=== PATIENT | female | born 1960 | race Caucasian/White ===

== ENCOUNTER → 2017-01-27 | Outpatient (CLI) | payer BC ==
--- NOTE | 2017-01-28 07:41 | MM ---
Reason for exam: screening (asymptomatic). Baseline mammogram. History: Patient is postmenopausal and is nulliparous. Physical Findings: Nurse did not find any significant physical abnormalities on exam. MG Screening Mammo w CAD Bilateral CC and MLO view(s) were taken. The breast tissue is heterogeneously dense. This may lower the sensitivity of mammography. Finding: There are typically benign round, diffuse/scattered calcifications in both breasts. There is no discrete abnormality. These results were verbally communicated with the patient and result sheet given to the patient on 01/27/17. ASSESSMENT: Benign, BI-RAD 2 RECOMMENDATION: Routine screening mammogram of both breasts in 1 year.
== END | disposition home or self-care (01) ==
LOC: RADMAMWWP 14:35
PROVIDERS: ATTEND Family Medicine
DX: Z12.31 Encounter for screening mammogram for malignant neoplasm of breast (principal); R92.1 Mammographic calcification found on diagnostic imaging of breast

== ENCOUNTER 2023-05-11 12:04 | Inpatient (IN) | payer BC ==
[2023-05-11] MEDS ORDERED: SODIUM CHLORIDE 0.9% 1,000 ML IV STA (12:48)
--- NOTE | 2023-05-11 12:58 | ED ---
General Adult HPI - General Chief complaint: Abdominal Pain Stated complaint: abd pain Time Seen by Provider: 05/11/23 12:31 Source: patient Mode of arrival: ambulatory - History of Present Illness Initial comments: Dictation was produced using [employer] dictation software. please excuse any grammatical, word or spelling errors. Chief Complaint: 62-year-old female with 1 week of abdominal pain History of Present Illness: Patient is 62-year-old female presents emergency Department with approximately one week of abdominal pain. Patient has no history of appendectomy. She does have a history of high blood pressure. Has not eaten in 5 or 6 days. She decided come to the emergency room because her symptoms are not improving. Denies any diarrhea. She has had some bouts of nausea and vomiting. Patient denies any history of abdominal surgery. Denies any fevers. Denies any vaginal bleeding. The ROS documented in this emergency department record has been reviewed and confirmed by me. Those systems with pertinent positive or negative responses have been documented in the HPI. All other systems are other negative and/or noncontributory. - Related Data Allergies Allergy/AdvReac Type Severity Reaction Status Date / Time No Known Allergies Allergy Verified 05/11/23 12:09 Review of Systems ROS Statement: Those systems with pertinent positive or pertinent negative responses have been documented in the HPI. ROS Other: All systems not noted in ROS Statement are negative. Past Medical History Past Medical History: Hypertension Additional Past Medical History / Comment(s): back pain History of Any Multi-Drug Resistant Organisms: None Reported Past Surgical History: Orthopedic Surgery Smoking Status: Current every day smoker Past Alcohol Use History: None Reported Past Drug Use History: None Reported General Exam - General Exam Comments Initial Comments: PHYSICAL EXAM: General Impression: Alert and oriented x3, not in acute distress HEENT: Normocephalic atraumatic, extra-ocular movements intact, pupils equal and reactive to light bilaterally, mucous membranes moist. Cardiovascular: Heart regular rate and rhythm Chest: Able to complete full sentences, no retractions, no tachypnea Abdomen: Exquisite tenderness to right lower quadrant palpation, no rebound, no pain in the right lower quadrant with palpation to the left abdomen Musculoskeletal: Pulses present and equal in all extremities, no peripheral edema Motor: no focal deficits noted Neurological: CN II-XII grossly intact, no focal motor or sensory deficits noted Skin: Intact with no visualized rashes Psych: Normal affect and mood Course Vital Signs 05/11/23 12:05 Temperature 98.2 F Pulse Rate 98 Respiratory 18 Rate Blood Pressure 95/53 O2 Sat by Pulse 100 Oximetry EKG Findings - EKG Comments: EKG Findings:: My EKG interpretation: Ventricular rate 75, sinus rhythm, RI interval 145, QRS 94, QTC 392. No RI prolongation, no QTC prolongation, slight T-wave inversions in some precordial leads No old EKG for comparison Overall, this EKG is unremarkable Procedures - Sepsis Sepsis Focused Exam #1 Time Sepsis Criteria Met: 16:37 Sepsis Focused Exam Date: 05/11/23 Sepsis Focused Exam Time: :37 Sepsis Focused Exam Complete: Yes Vital Signs & RN Notes Reviewed: Yes Capillary Refill: < 2 Seconds: Fingers, Toes Peripheral Pulses: Normal: Radial (R), Radial (L), Posterior Tibialis (R), Pos terior Tibialis (L), Dorsalis Pedis (R), Dorsalis Pedis (L) Skin Color: Normal for Patient Respiratory Exam: normal lung sounds Cardiovascular Exam: regular rate Medical Decision Making - Medical Decision Making Was pt. sent in by a medical professional or institution (, PA, ASSET PROTECTION LEAD, urgent care, hospital, or intermediate...) When possible be specific @ -No Did you speak to anyone other than the patient for history (EMS, parent, family, police, friend...)? What history was obtained from this source @ -No Did you review nursing and triage notes (agree or disagree)? Why? @ -I reviewed and agree with nursing and triage notes Were old charts reviewed (outside hosp., previous admission, EMS record, old EKG, old radiological studies, urgent care reports/EKG's, intermediate records)? Report findings @ -No old charts were reviewed Differential Diagnosis (chest pain, altered mental status, abdominal pain women, abdominal pain men, vaginal bleeding, musculoskeletal, weakness, fever, dyspnea, syncope, headache, dizziness, GI bleed, back pain, seizure, CVA, palpatations, mental health)? @ -DDifferential Abdominal Pain Women: Appendicitis, Cholecystitis, diverticulosis, ischemic bowel, pancreatitis, hepatitis, UTI, gastroenteritis, AAA, incarcerated hernia, bowel obstruction, constipation, inflammatory bowel, hepatitis, peptic ulcer disease, splenic infarction, perforated viscus, vulvitis, ovarian torsion, PID, kidney stone, placenta abruption, this is not meant to be an all-inclusive list EKG interpreted by me (3pts min.). @ -See above X-rays interpreted by me (1pt min.). @ -None done CT interpreted by me (1pt min.). @ -Computed tomography scan of the abdomen and pelvis shows acute appendicitis U/S interpreted by me (1pt. min.). @ -None done What testing was considered but not performed or refused? (CT, X-rays, U/S, labs)? Why? @ -None What meds were considered but not given or refused? Why? @ -None Did you discuss the management of the patient with other professionals (professionals i.e. , PA, ASSET PROTECTION LEAD, lab, RT, psych nurse, social worker aide, wrecking mechanic, teacher, interface control officer, case briefer)? Give summary @ -CT was discussed with Dr. Otero for admission case also discussed with Malika Yuen for medicine consult Was smoking cessation discussed for >3mins.? @ -No Was critical care preformed (if so, how long)? @ -yes, 33 minutes Were there social determinants of health that impacted care today? How? (Homeles sness, low income, unemployed, alcoholism, drug addiction, transportation, low edu. Level, literacy, decrease access to med. care, halfway, rehab)? @ -No Was there de-escalation of care discussed even if they declined (Discuss DNR or withdrawal of care, Hospice)? DNR status @ -No What co-morbidities impacted this encounter? (DM, HTN, Smoking, COPD, CAD, Cancer, CVA, ARF, Chemo, Hep., AIDS, mental health diagnosis, sleep apnea, morbid obesity)? @ -None Was patient admitted / discharged? Hospital course, mention meds given and route, prescriptions, significant lab abnormalities, going to OR and other pertinent info. @ -62-year-old female presents with right lower quadrant abdominal pain for almost one week. Vital signs upon arrival shows soft blood pressure. She responded well to fluids. Laboratory evaluation shows leukocytosis of 31.6. Patient not be fluids. Urinalysis negative. Computed tomography scan shows acute appendicitis. Clinical presentation borderline sepsis. Patient started on Zosyn. Undiagnosed new problem with uncertain prognosis? @ -No Drug Therapy requiring intensive monitoring for toxicity (Heparin, Nitro, Insulin, Cardizem)? @ -No Were any procedures done? @ -No Diagnosis/symptom? Acute, or Chronic, or Acute on Chronic? Uncomplicated (without systemic symptoms) or Complicated (systemic symptoms)? @ -1. Acute appendicitis Side effects of treatment? @ -No Exacerbation, Progression, or Severe Exacerbation? @ -No Poses a threat to life or bodily function? How? (Chest pain, [place], [place], pneumonia, PE, COPD, DKA, ARF, appy, cholecystitis, CVA, Diverticulitis, Homicidal, Suicidal, threat to staff... and all critical care pts) @ -yes - Lab Data Result diagrams: 05/11/23 12:36 05/11/23 12:36 Lab Results 05/11/23 05/11/23 05/11/23 Range/Units 12:36 12:36 12:36 WBC 31.6 H (3.8-10.6) k/uL RBC 3.81 (3.80-5.40) m/uL Hgb 11.5 (11.4-16.0) gm/dL Hct 35.7 (34.0-46.0) % MCV 93.9 (80.0-100.0) fL MCH 30.3 (25.0-35.0) pg MCHC 32.3 (31.0-37.0) g/dL RDW 13.8 (11.5-15.5) % Plt Count 514 H (150-450) k/uL MPV 8.9 Neutrophils % (Manual) 86 % Lymphocytes % (Manual) 7 % Monocytes % (Manual) 7 % Neutrophils # (Manual) 27.18 H (1.3-7.7) k/uL Lymphocytes # (Manual) 2.21 (1.0-4.8) k/uL Monocytes # (Manual) 2.21 H (0-1.0) k/uL Nucleated RBCs 0 (0-0) /100 WBC Manual Slide Review Performed PT 11.6 (9.0-12.0) sec INR 1.1 (<1.2) APTT 25.8 (22.0-30.0) sec Sodium 133 L (137-145) mmol/L Potassium 3.6 (3.5-5.1) mmol/L Chloride 98 (98-107) mmol/L Carbon Dioxide 24 (22-30) mmol/L Anion Gap 11 mmol/L BUN 31 H (7-17) mg/dL Creatinine 0.87 (0.52-1.04) mg/dL Est GFR (CKD-EPI)AfAm 83 (>60 ml/min/1.73 sqM) Est GFR (CKD-EPI)NonAf 72 (>60 ml/min/1.73 sqM) Glucose 121 H (74-99) mg/dL Calcium 9.9 (8.4-10.2) mg/dL Magnesium 2.1 (1.6-2.3) mg/dL Total Bilirubin 0.8 (0.2-1.3) mg/dL AST 36 (14-36) U/L ALT 36 H (4-34) U/L Alkaline Phosphatase 197 H (38-126) U/L Total Protein 6.9 (6.3-8.2) g/dL Albumin 3.7 (3.5-5.0) g/dL Urine Color Urine Appearance (Clear) Urine pH (5.0-8.0) Ur Specific [place] (1.001-1.035) Urine Protein (Negative) Urine Glucose (UA) (Negative) Urine Ketones (Negative) Urine Blood (Negative) Urine Nitrite (Negative) Urine Bilirubin (Negative) Urine Urobilinogen (<2.0) mg/dL Ur Leukocyte Esterase (Negative) Urine RBC (0-5) /hpf Urine WBC (0-5) /hpf Ur Squamous Epith Cells (0-4) /hpf Urine Bacteria (None) /hpf Hyaline Casts (0-2) /lpf Urine Mucus (None) /hpf 05/11/23 Range/Units 15:05 WBC (3.8-10.6) k/uL RBC (3.80-5.40) m/uL Hgb (11.4-16.0) gm/dL Hct (34.0-46.0) % MCV (80.0-100.0) fL MCH (25.0-35.0) pg MCHC (31.0-37.0) g/dL RDW (11.5-15.5) % Plt Count (150-450) k/uL MPV Neutrophils % (Manual) % Lymphocytes % (Manual) % Monocytes % (Manual) % Neutrophils # (Manual) (1.3-7.7) k/uL Lymphocytes # (Manual) (1.0-4.8) k/uL Monocytes # (Manual) (0-1.0) k/uL Nucleated RBCs (0-0) /100 WBC Manual Slide Review PT (9.0-12.0) sec INR (<1.2) APTT (22.0-30.0) sec Sodium (137-145) mmol/L Potassium (3.5-5.1) mmol/L Chloride (98-107) mmol/L Carbon Dioxide (22-30) mmol/L Anion Gap mmol/L BUN (7-17) mg/dL Creatinine (0.52-1.04) mg/dL Est GFR (CKD-EPI)AfAm (>60 ml/min/1.73 sqM) Est GFR (CKD-EPI)NonAf (>60 ml/min/1.73 sqM) Glucose (74-99) mg/dL Calcium (8.4-10.2) mg/dL Magnesium (1.6-2.3) mg/dL Total Bilirubin (0.2-1.3) mg/dL AST (14-36) U/L ALT (4-34) U/L Alkaline Phosphatase (38-126) U/L Total Protein (6.3-8.2) g/dL Albumin (3.5-5.0) g/dL Urine Color Yellow Urine Appearance Clear (Clear) Urine pH 7.0 (5.0-8.0) Ur Specific [place] 1.010 (1.001-1.035) Urine Protein Trace H (Negative) Urine Glucose (UA) Negative (Negative) Urine Ketones Negative (Negative) Urine Blood Negative (Negative) Urine Nitrite Negative (Negative) Urine Bilirubin Negative (Negative) Urine Urobilinogen <2.0 (<2.0) mg/dL Ur Leukocyte Esterase Moderate H (Negative) Urine RBC 2 (0-5) /hpf Urine WBC 3 (0-5) /hpf Ur Squamous Epith Cells 1 (0-4) /hpf Urine Bacteria Rare H (None) /hpf Hyaline Casts 1 (0-2) /lpf Urine Mucus Occasional H (None) /hpf Disposition Clinical Impression: Acute appendicitis Disposition: ADMITTED IP TO THIS [facility] Condition: Serious Referrals: Amada Courtney DO [Primary Care Provider] - 1-2 days Decision Time: 16:00
[2023-05-11 13:15] LABS: HCT 35.7 % (34.0-46.0); HGB 11.5 gm/dL (11.4-16.0); MCH 30.3 pg (25.0-35.0); MCHC 32.3 g/dL (31.0-37.0); MCV 93.9 fL (80.0-100.0); Mean Platelet Volume 8.9; Platelet Count 514 k/uL (150-450); RBC 3.81 m/uL (3.80-5.40); RDW 13.8 % (11.5-15.5)
[2023-05-11 13:22] LABS: INR 1.1 (<1.2); Partial Thromboplastin Time 25.8 sec (22.0-30.0); Prothrombin Time 11.6 sec (9.0-12.0)
[2023-05-11 13:23] LABS: ALT 36 U/L (4-34); AST 36 U/L (14-36); African American GFR (CKD) 83 (>60 ml/min/1.73 sqM); Albumin 3.7 g/dL (3.5-5.0); Alkaline Phosphatase 197 U/L (38-126); Anion Gap 11 mmol/L; Blood Urea Nitrogen 31 mg/dL (7-17); Calcium 9.9 mg/dL (8.4-10.2); Carbon Dioxide 24 mmol/L (22-30); Chloride 98 mmol/L (98-107); Glucose 121 mg/dL (74-99); Magnesium 2.1 mg/dL (1.6-2.3); Non-African American GFR(CKD) 72 (>60 ml/min/1.73 sqM); Potassium 3.6 mmol/L (3.5-5.1); Sodium 133 mmol/L (137-145); Total Bilirubin 0.8 mg/dL (0.2-1.3); Total Protein 6.9 g/dL (6.3-8.2)
[2023-05-11 13:25] LABS: WBC 31.6 k/uL (3.8-10.6)
[2023-05-11 14:04] LABS: Lymphocytes # (M) 2.21 k/uL (1.0-4.8); Monocytes # (M) 2.21 k/uL (0-1.0); Neutrophils # (M) 27.18 k/uL (1.3-7.7); Neutrophils % (M) 86 %; Nucleated Red Blood Cells 0 /100 WBC (0-0); Total Cells Counted 100
--- NOTE | 2023-05-11 15:20 | CT ---
EXAMINATION TYPE: CT abdomen pelvis w con DATE OF EXAM: 05/11/2023 COMPARISON: None HISTORY: RLQ abdominal pain, nausea and vomiting. CT DLP: 1002.4 mGycm Automated exposure control for dose reduction was used. TECHNIQUE: Helical acquisition of images was performed from the lung bases through the pelvis. CONTRAST: Performed without Oral Contrast and with IV Contrast, patient injected with 100ml mL of Isovue 300. Findings: The lung bases are clear. Gallbladder is normal and there is no biliary ductal dilatation. There is no focal mass or organomegaly involving the liver, pancreas, contrast symmetrically and ther e is no renal mass or process. The caliber the abdominal aorta the bowel loops are normal in caliber and there is no evidence of dilatation or obstruction. There is acute appendicitis. The appendix is enlarged measuring 17 mm diameter and there is marked in flammation of the appendiceal wall. CT of. There is no abscess. There is no free intraperitoneal air or fluid. There is no pelvic mass, free fluid, abscess or adenopathy. IMPRESSION: Findings consistent with acute appendicitis as described above.
[2023-05-11 15:35] LABS: Appearance,Urine Clear (Clear); Bacteria,Urine Rare /hpf; Bilirubin,Urine Negative (Negative); Blood,Urine Negative (Negative); Color,Urine Yellow; Glucose,Urine (UA) Negative (Negative); Hyaline Casts,Urine 1 /lpf (0-2); Ketones,Urine Negative (Negative); Leukocyte Esterase,Urine Moderate (Negative); Mucus,Urine Occasional /hpf; Nitrite,Urine Negative (Negative); Protein,Urine Trace (Negative); RBC,Urine 2 /hpf (0-5); Squamous Epithelial Cell,Urine 1 /hpf (0-4); Urobilinogen,Urine <2.0 mg/dL (<2.0); WBC,Urine 3 /hpf (0-5)
[2023-05-11] MEDS ORDERED: NALOXONE 0.4 MG/ML 1 ML VIAL IV PRN (16:27)
[2023-05-11] MEDS: PIPERACILLIN-TAZOBACTAM 3.375 GM in SODIUM CHLORIDE 0.9% 100 ML IVPB SCH ×2 (16:52→23:30)
[2023-05-11] MEDS: SODIUM CHLORIDE 0.9% 1,000 ML IV SCH (16:53)
[2023-05-11] MEDS ORDERED: DOCUSATE 100 MG CAP PO PRN (17:00)
[2023-05-11] MEDS ORDERED: ONDANSETRON 4 MG/2 ML VIAL IVP PRN (17:00)
[2023-05-11] MEDS ORDERED: ACETAMINOPHEN TAB 325 MG TAB PO PRN (17:00)
--- NOTE | 2023-05-11 18:02 | P.GSHP ---
History of Present Illness H&P Date: 05/11/23 Chief Complaint: acute appendicitis on CT 62F presented to ER with complaints of right lower quadrant abdominal pain for the past week. Has had associated nausea & vomiting. Hasn't had much of an appetite for the past week. Last had some [place] early this morning (over 8 henry rs ago). Decided to come in to ER because symptoms were not resolving. Has a history of ectopic . Had CT scan done in the ER, revealing acute appendicitis with no associated abscess. BP little soft on admission with leukocytosis of 31, suspect component of dehydration as well as inflammation. - Constitutional Constitutional: Reports as per HPI - Cardiovascular Cardiovascular: Reports as per HPI - Respiratory Respiratory: Reports as per HPI - Gastrointestinal Gastrointestinal: Reports as per HPI - Genitourinary (Female) Genitourinary: Reports as per HPI - Menstruation Menstruation: Reports as per HPI - Musculoskeletal Musculoskeletal: Reports as per HPI - Integumentary Integumentary: Reports as per HPI - Neurological Neurological: Reports as per HPI - Psychiatric Psychiatric: Reports as per HPI - Endocrine Endocrine: Reports as per HPI - Hematologic/Lymphatic Hematologic/Lymphatic: Reports as per HPI - Allergic/Immunologic Allergic/Immunologic: Reports as per HPI Past Medical History Past Medical History: Hypertension Additional Past Medical History / Comment(s): back pain History of Any Multi-Drug Resistant Organisms: None Reported Past Surgical History: Orthopedic Surgery Additional Past Surgical History / Comment(s): ectopic Smoking Status: Current every day smoker Past Alcohol Use History: None Reported Past Drug Use History: None Reported Medications and Allergies Home Medications Medication Instructions Recorded Confirmed Type HYDROcodone/APAP 7.5-325MG [[place] 1 tab PO QID 05/11/23 05/11/23 History 7.5-325] Lisinopril-Hctz 20-12.5 mg 1 tab PO DAILY 05/11/23 05/11/23 History [Zestoretic 20-12.5] Naproxen [Naprosyn] 500 mg PO BID 05/11/23 05/11/23 History Allergies Allergy/AdvReac Type Severity Reaction Status Date / Time No Known Allergies Allergy Verified 05/11/23 16:47 Surgical - Exam Vital Signs Temp Pulse Resp BP Pulse Ox 98.2 F 98 18 95/53 100 05/11/23 12:05 05/11/23 12:05 05/11/23 12:05 05/11/23 12:05 05/11/23 12:05 - General well developed, well nourished, no distress - ENT normal mucosa, no hearing loss - Neck supple - Respiratory normal expansion, normal respiratory effort - Cardiovascular Rhythm: regular - Abdomen Abdomen: soft, tender (RLQ TTP), no guarding, no rigid, no rebound, no distended - Integumentary warm & dry, no diaphoresis - Neurologic no gross deficits - Musculoskeletal no LE edema normal gait - Psychiatric cooperative, normal affect Results - Labs 05/11/23 12:36 05/11/23 12:36 Abnormal Lab Results - Last 24 Hours (Table) 05/11/23 05/11/23 05/11/23 Range/Units 12:36 12:36 15:05 WBC 31.6 H (3.8-10.6) k/uL Plt Count 514 H (150-450) k/uL Neutrophils # (Manual) 27.18 H (1.3-7.7) k/uL Monocytes # (Manual) 2.21 H (0-1.0) k/uL Sodium 133 L (137-145) mmol/L BUN 31 H (7-17) mg/dL Glucose 121 H (74-99) mg/dL ALT 36 H (4-34) U/L Alkaline Phosphatase 197 H (38-126) U/L Urine Protein Trace H (Negative) Ur Leukocyte Esterase Moderate H (Negative) Urine Bacteria Rare H (None) /hpf Urine Mucus Occasional H (None) /hpf Diabetes panel 05/11/23 Range/Units 12:36 Sodium 133 L (137-145) mmol/L Potassium 3.6 (3.5-5.1) mmol/L Chloride 98 (98-107) mmol/L Carbon Dioxide 24 (22-30) mmol/L BUN 31 H (7-17) mg/dL Creatinine 0.87 (0.52-1.04) mg/dL Glucose 121 H (74-99) mg/dL Calcium 9.9 (8.4-10.2) mg/dL AST 36 (14-36) U/L ALT 36 H (4-34) U/L Alkaline Phosphatase 197 H (38-126) U/L Total Protein 6.9 (6.3-8.2) g/dL Albumin 3.7 (3.5-5.0) g/dL Calcium panel 05/11/23 Range/Units 12:36 Calcium 9.9 (8.4-10.2) mg/dL Albumin 3.7 (3.5-5.0) g/dL Pituitary panel 05/11/23 Range/Units 12:36 Sodium 133 L (137-145) mmol/L Potassium 3.6 (3.5-5.1) mmol/L Chloride 98 (98-107) mmol/L Carbon Dioxide 24 (22-30) mmol/L BUN 31 H (7-17) mg/dL Creatinine 0.87 (0.52-1.04) mg/dL Glucose 121 H (74-99) mg/dL Calcium 9.9 (8.4-10.2) mg/dL Adrenal panel 05/11/23 Range/Units 12:36 Sodium 133 L (137-145) mmol/L Potassium 3.6 (3.5-5.1) mmol/L Chloride 98 (98-107) mmol/L Carbon Dioxide 24 (22-30) mmol/L BUN 31 H (7-17) mg/dL Creatinine 0.87 (0.52-1.04) mg/dL Glucose 121 H (74-99) mg/dL Calcium 9.9 (8.4-10.2) mg/dL Total Bilirubin 0.8 (0.2-1.3) mg/dL AST 36 (14-36) U/L ALT 36 H (4-34) U/L Alkaline Phosphatase 197 H (38-126) U/L Total Protein 6.9 (6.3-8.2) g/dL Albumin 3.7 (3.5-5.0) g/dL - Imaging CT scan - abdomen: report reviewed, image reviewed CT scan - pelvis: report reviewed, image reviewed Assessment and Plan Assessment: acute appendicitis leukocytosis, 2/2 dehydration & inflammation slight hypotension, responded to fluids - SBP 120s on my exam Plan: To OR for laparoscopic possibly open appendectomy - Surgical procedure, risks, benefits discussed with patient. Questions encouraged & answered. - post-op admission - continue abx - NPO, IVF Time with Patient: Less than 30
[2023-05-11] MEDS ORDERED: BUPIVACAINE (PF) 0.25% 30 ML VIAL SQ ONE ×2 (18:49)
[2023-05-11] MEDS ORDERED: LACTATED RINGERS 1,000 ML IV ONE ×2 (18:49→19:54)
--- NOTE | 2023-05-11 19:58 | P.OP ---
Date of Procedure: 05/11/23 Preoperative Diagnosis: acute appendicitis Postoperative Diagnosis: acute ruptured, gangrenous appendicitis Procedure(s) Performed: laparoscopic appendectomy with VIRGILIO drain placement Anesthesia: GETA Surgeon: Stacie Otero Pathology: other (appendix) Condition: stable Disposition: PACU Indications for Procedure: acute appendicitis on CT with leukocytosis Operative Findings: Ruptured, walled off acutely inflamed appendix adherent to abdominal wall & covered with omentum. Base of appendix not involved; window created & appendix stapled off. Surrounding inflammatory changes noted with significant purulent & feculent peritonitis. Channel drain placed in pelvis & right pericolic gutter. Description of Procedure: See full dictation for details.
[2023-05-11] MEDS: KETOROLAC 15 MG/ML 1 ML VIAL IVP PRN (21:00)
[2023-05-11] MEDS: oxyCODONE-APAP 5-325MG 1 EACH TAB PO PRN (23:36)
[2023-05-12] MEDS: SODIUM CHLORIDE 0.9% 1,000 ML IV SCH ×4 (00:40→23:27)
[2023-05-12] MEDS: oxyCODONE-APAP 5-325MG 1 EACH TAB PO PRN ×2 (05:49→10:30)
[2023-05-12] MEDS: KETOROLAC 15 MG/ML 1 ML VIAL IVP PRN ×3 (08:48→20:07)
[2023-05-12] MEDS: PIPERACILLIN-TAZOBACTAM 3.375 GM in SODIUM CHLORIDE 0.9% 100 ML IVPB SCH ×3 (08:49→23:27)
[2023-05-12] MEDS: ENOXAPARIN 40 MG/0.4 ML SYRINGE SQ SCH (08:49)
[2023-05-12 09:04] LABS: BUN/Creat Ratio 31.83 Ratio (12.00-20.00); Blood Urea Nitrogen 19.1 mg/dL (9.0-27.0); Calcium 8.4 mg/dL (8.7-10.3); Carbon Dioxide 19.4 mmol/L (21.6-31.8); Chloride 104 mmol/L (96-109); Glucose 147 mg/dL (70-110); Magnesium 1.9 mg/dL (1.5-2.4); Potassium 3.6 mmol/L (3.5-5.5); Sodium 136 mmol/L (135-145)
[2023-05-12 10:00] LABS: Basophils # (A) 0.12 X 10*3/uL (0.00-0.10); Basophils % (A) 0.5 %; Eosinophils # (A) 0 X 10*3/uL (0.04-0.35); Eosinophils % (A) 0 %; HCT 30.7 % (37.2-46.3); HGB 9.7 d/dL (12.0-15.0); Lymphocytes # (A) 0.64 X 10*3/uL (0.90-5.00); Lymphocytes % (A) 2.9 %; MCH 30.5 pg (27.0-32.0); MCHC 31.6 d/dL (32.0-37.0); MCV 96.5 FL (80.0-97.0); Mean Platelet Volume 11.5 FL (9.5-12.2); Monocytes # (A) 1.05 X 10*3/uL (0.20-1.00); Monocytes % (A) 4.7 %; NRBC Per 100 WBC 0 X 10*3/uL (0.00-0.01); Neutrophils % (A) 91.6 %; Platelet Count 491 X 10*3/uL (140-440); RBC 3.18 X 10*6/uL (4.10-5.20); RDW 14.4 % (11.5-14.5); WBC 22.17 X 10*3/uL (4.50-10.00)
--- NOTE | 2023-05-12 12:20 | XR ---
EXAMINATION TYPE: XR chest 1V portable DATE OF EXAM: 05/12/2023 COMPARISON: NONE HISTORY: Shortness of breath TECHNIQUE: Single frontal view of the chest is obtained. FINDINGS: Limited inspiration with bibasilar consolidation. No sizable pleural effusion or pneumotho rax. Heart is enlarged. No overt failure. Osseous structures are stable. IMPRESSION: 1. Bibasilar atelectasis or early infiltrate.
[2023-05-12] MEDS: HYDROcodone/APAP 7.5-325MG 1 EACH TAB PO PRN ×2 (16:31→22:08)
--- NOTE | 2023-05-12 21:36 | HP ---
HISTORY AND PHYSICAL CHIEF COMPLAINT: Abdominal pain. HISTORY OF PRESENT ILLNESS: This is a 62-year-old woman with a past medical history of multiple medical problems, who was admitted with abdominal pain. The patient had acute appendicitis, which was found to be gangrenous and ruptured. The patient . There is no history of any fever, rigor, or chills. White count is elevated. The patient is started on broad- spectrum IV antibiotics. PAST MEDICAL HISTORY: Reviewed includes hypertension. Rest of the history and rest of the chart are also reviewed. HOME MEDICATIONS: Reviewed include Naprosyn. Doses and rest of the medications are noted. ALLERGIES: None. FAMILY HISTORY: No history of heart disease or strokes in the family. SOCIAL HISTORY: History of smoking. REVIEW OF SYSTEMS: Fourteen-point review is negative except as mentioned earlier. PHYSICAL EXAMINATION: VITAL SIGNS: Pulse is 62, blood pressure 88/57, respirations 16. HEENT: Conjunctivae are normal. NECK: No jugular venous distention. CARDIOVASCULAR: S1 and S2 muffled. RESPIRATORY: Clear to auscultation. ABDOMEN: Soft. Status post surgery. No guarding. No rigidity. Bowel sounds diminished. LEGS: No edema. NERVOUS SYSTEM: No focal deficits. SKIN: No ulcers or rashes. JOINTS: No active deforming arthropathy. LABORATORY DATA: WBC 22.7. Rest of the labs are noted. ASSESSMENT: 1. Acute appendicitis, ruptured, gangrenous, status post laparoscopic appendectomy with VIRGILIO drain with possible sepsis present on admission. 2. Elevated WBC. 3. Hypertension. 4. Multiple medical issues. RECOMMENDATIONS: Recommend to continue current medications. Continue symptomatic treatment. I recommend IV fluid boluses. Repeat lactic acid. Infectious Disease evaluation. Follow the cultures. Broad-spectrum IV antibiotics. IV fluids. Resume the home medications. Hold off the blood pressure medication at this time. DVT prophylaxis. Prognosis is guarded because of multiple complex medical issues. Further recommendations to follow. MMODL / IJN: [id number] / MTDD
[2023-05-13] MEDS: KETOROLAC 15 MG/ML 1 ML VIAL IVP PRN ×4 (02:29→21:22)
[2023-05-13] MEDS: HYDROcodone/APAP 7.5-325MG 1 EACH TAB PO PRN ×3 (06:06→18:47)
[2023-05-13] MEDS: SODIUM CHLORIDE 0.9% 1,000 ML IV SCH ×2 (06:09→15:05)
[2023-05-13] MEDS: PIPERACILLIN-TAZOBACTAM 3.375 GM in SODIUM CHLORIDE 0.9% 100 ML IVPB SCH ×2 (08:15→15:05)
[2023-05-13] MEDS: ENOXAPARIN 40 MG/0.4 ML SYRINGE SQ SCH (08:15)
[2023-05-13] MEDS ORDERED: IPRATROPIUM-ALBUTEROL 3 ML NEB INHALATION PRN (11:41)
--- NOTE | 2023-05-13 12:32 | PN ---
PROGRESS NOTE DATE OF SERVICE: 05/13/2023 SUBJECTIVE: This is a 62-year-old woman who was admitted with acute appendicitis and gangrene, also had features of sepsis. The chest x-ray which I reviewed personally was showing some bilateral atelectasis. Today's white count is not available. The patient is on broad spectrum IV antibiotics. The patient will be closely monitored. PAST MEDICAL HISTORY: Reviewed. REVIEW OF SYSTEMS: A 14-point review is negative except as mentioned earlier. CURRENT MEDICATIONS: Include Zosyn, rest of medications noted. PHYSICAL EXAMINATION: VITAL SIGNS: Pulse is 102, blood pressure ntd, respirations 18. HEENT: Conjunctivae normal. NECK: No jugular venous distention. CARDIOVASCULAR: S1, S2 muffled. RESPIRATIONS: Breath sounds diminished at the bases. A few scattered rhonchi ABDOMEN: Soft status post surgery. LEGS: No edema, no swelling. LABS: Previous labs are reviewed, current labs are not available. ASSESSMENT: 1. Acute appendicitis, ruptured, gangrenous, status post laparoscopic appendectomy with VIRGILIO drain with possible sepsis present on admission. 2. Elevated WBC. 3. Hypertension. 4. Atelectasis. 5. Multiple medications. RECOMMENDATIONS AND DISCUSSION: I recommend to continue current medications, continue symptomatic treatment. Otherwise at this time, I will recommend to continue the antibiotics. Add bronchodilators to current regimen, otherwise follow closely. Cut down the IV fluids. Possible surgery, DVT prophylaxis guarded. Repeat labs. Guarded prognosis. Further recommendations to follow. MMODL / IJN: [id number] / JIA
[2023-05-13 12:33] LABS: HCT 28.3 % (34.0-46.0); Hypochromasia Slight; MCH 30.9 pg (25.0-35.0); MCV 96.5 fL (80.0-100.0); Mean Platelet Volume 8.4; Platelet Count 466 k/uL (150-450); RBC 2.93 m/uL (3.80-5.40); RDW 14.2 % (11.5-15.5); WBC 17.6 k/uL (3.8-10.6)
--- NOTE | 2023-05-13 13:42 | P.PN ---
Subjective Progress Note Date: 05/12/23 (late charting) Principal diagnosis: acute appendicitis on CT 62F presented to ER with complaints of right lower quadrant abdominal pain for the past week. Has had associated nausea & vomiting. Hasn't had much of an appetite for the past week. Last had some Vernors early this morning (over 8 hours ago). Decided to come in to ER because symptoms were not resolving. Has a history of ectopic . Had CT scan done in the ER, revealing acute appendicitis with no associated abscess. BP little soft on admission with leukocytosis of 31, suspect component of dehydration as well as inflammation. Underwent laparoscopic appendectomy on 05/11; noted to have a ruptured appendix with feculuent peritonitis. Feeling OK. Some abdominal pain. Tolerating clears. Leukocytosis improving. Has history of chronic pain & on chronic pain medications. Objective - Vital Signs Vital signs: Vital Signs Temp 98.4 F 05/12/23 13:09 Pulse 92 05/12/23 13:09 Resp 17 05/12/23 13:09 BP 90/56 05/12/23 13:09 Pulse Ox 92 L 05/12/23 13:09 FiO2 Intake & Output 05/11/23 05/12/23 05/12/23 18:59 06:59 18:59 Intake Total 1000 500 Output Total 585 12 Balance 1000 -85 -12 Weight 66.678 kg Intake: IV 1000 500 Output: Drainage 425 12 Abdomen 425 12 Urine 50 Estimated Blood Loss 110 Other: # Voids 5 1 - Constitutional General appearance: Present: average body habitus, cooperative, no acute dis tress - EENT Eyes: Present: anicteric sclerae, dentition normal ENT: Present: hearing grossly normal - Neck Details: supple - Respiratory Details: non labored, normal effort; on 2 L NC - Cardiovascular Rhythm: regular - Gastrointestinal General gastrointestinal: Present: soft, tenderness (appropriate post-operative tenderness). Absent: distended, rigid - Integumentary Integumentary Comment(s): warm & dry, no diaphoresis - Neurologic Neurologic Comment(s): grossly normal - Musculoskeletal Musculoskeletal Comment(s): no LE edema - Psychiatric Psychiatric Comment(s): cooperative, normal affect - Labs CBC & Chem 7: 05/13/23 12:01 05/12/23 05:24 Labs: Abnormal Lab Results - Last 24 Hours (Table) 05/11/23 05/12/23 05/12/23 Range/Units 15:05 05:24 05:24 WBC 22.17 H (4.50-10.00) X 10*3/uL RBC 3.18 L (4.10-5.20) X 10*6/uL Hgb 9.7 L (12.0-15.0) d/dL Hct 30.7 L (37.2-46.3) % MCHC 31.6 L (32.0-37.0) d/dL Plt Count 491 H (140-440) X 10*3/uL Neutrophils # 20.30 H (1.80-7.70) X 10*3/uL Lymphocytes # 0.64 L (0.90-5.00) X 10*3/uL Monocytes # 1.05 H (0.20-1.00) X 10*3/uL Eosinophils # 0 L (0.04-0.35) X 10*3/uL Basophils # 0.12 H (0.00-0.10) X 10*3/uL Carbon Dioxide 19.4 L (21.6-31.8) mmol/L Anion Gap 12.60 H (4.00-12.00) mmol/L BUN/Creatinine Ratio 31.83 H (12.00-20.00) Ratio Glucose 147 H (70-110) mg/dL Calcium 8.4 L (8.7-10.3) mg/dL Urine Protein Trace H (Negative) Ur Leukocyte Esterase Moderate H (Negative) Urine Bacteria Rare H (None) /hpf Urine Mucus Occasional H (None) /hpf - Imaging and Cardiology Chest x-ray: report reviewed, image reviewed Assessment and Plan Assessment: acute appendicitis s/p laparoscopic appendectomy 7/2 leukocytosis, 2/2 dehydration & inflammation- improving slight hypotension, responded to fluids - SBP 120s on my exam Plan: Encourage IS, ambulation OK IVF, clears Needs 3 days of IV abx due to feculent peritonitis Time with Patient: Less than 30
--- NOTE | 2023-05-13 13:59 | P.PN ---
Subjective Progress Note Date: 05/13/23 Principal diagnosis: acute appendicitis on CT 62F presented to ER with complaints of right lower quadrant abdominal pain for the past week. Has had associated nausea & vomiting. Hasn't had much of an appetite for the past week. Last had some Vernors early this morning (over 8 hours ago). Decided to come in to ER because symptoms were not resolving. Has a history of ectopic . Had CT scan done in the ER, revealing acute appendicitis with no associated abscess. BP little soft on admission with leukocytosis of 31, suspect component of dehydration as well as inflammation. Underwent laparoscopic appendectomy on 05/11; noted to have a ruptured appendix with feculuent peritonitis. Feeling OK. Still with abdominal pain, as expected. Does not like the options for clear liquids. Leukocytosis continues to improve. Up & getting in shower. Objective - Vital Signs Vital signs: Vital Signs Temp 98.0 F 05/13/23 06:30 Pulse 102 H 05/13/23 06:30 Resp 18 05/13/23 06:30 BP 116/67 05/13/23 06:30 Pulse Ox 95 05/13/23 06:30 FiO2 Intake & Output 05/12/23 05/13/23 05/13/23 18:59 06:59 18:59 Output Total 12 40 Balance -12 -40 Output: Drainage 12 40 Abdomen 12 40 Other: # Voids 1 1 - Labs CBC & Chem 7: 05/13/23 12:01 05/12/23 05:24 Labs: Abnormal Lab Results - Last 24 Hours (Table) 05/13/23 Range/Units 12:01 WBC 17.6 H (3.8-10.6) k/uL RBC 2.93 L (3.80-5.40) m/uL Hgb 9.0 L D (11.4-16.0) gm/dL Hct 28.3 L (34.0-46.0) % Plt Count 466 H (150-450) k/uL Assessment and Plan Assessment: acute appendicitis s/p laparoscopic appendectomy 05/11 leukocytosis, 2/2 dehydration & inflammation- improving slight hypotension, responded to fluids- improved Plan: Encourage IS, ambulation OK to shower Will remove bandaid dressings tomorrow Continue IVF, OK for softs to see if something she will like to eat Needs 3 days of IV abx due to feculent peritonitis Anticipate discharge in 48 hours
[2023-05-13] MEDS: DOCUSATE 100 MG CAP PO SCH ×2 (15:05→20:47)
[2023-05-13] MEDS: IPRATROPIUM-ALBUTEROL 3 ML NEB INHALATION SCH ×2 (15:28→19:29)
[2023-05-13] MEDS: SENNOSIDES 8.6 MG TAB PO SCH (20:47)
[2023-05-14] MEDS: PIPERACILLIN-TAZOBACTAM 3.375 GM in SODIUM CHLORIDE 0.9% 100 ML IVPB SCH ×3 (00:19→16:59)
[2023-05-14] MEDS: HYDROcodone/APAP 7.5-325MG 1 EACH TAB PO PRN ×4 (00:19→19:59)
[2023-05-14] MEDS: DOCUSATE 100 MG CAP PO SCH ×3 (00:23→19:59)
[2023-05-14] MEDS: SENNOSIDES 8.6 MG TAB PO SCH ×3 (00:23→19:59)
[2023-05-14] MEDS: KETOROLAC 15 MG/ML 1 ML VIAL IVP PRN ×2 (05:12→16:58)
[2023-05-14] MEDS: ENOXAPARIN 40 MG/0.4 ML SYRINGE SQ SCH (08:05)
[2023-05-14] MEDS: SODIUM CHLORIDE 0.9% 1,000 ML IV SCH ×2 (08:12→20:02)
--- NOTE | 2023-05-14 08:30 | XR ---
EXAMINATION TYPE: XR chest 2V DATE OF EXAM: 05/14/2023 COMPARISON: 05/12/2023 TECHNIQUE: PA and lateral views submitted. HISTORY: Shortness of breath FINDINGS: Limited inspiration with bibasilar consolidation. No sizable pleural effusion or pneumothorax. Heart is enlarged. No overt failure. Osseous structures are stable. IMPRESSION: 1. Stable bilateral lower lobe infiltrate and small right pleural effusion..
[2023-05-14 08:40] LABS: Basophils # (A) 0.04 X 10*3/uL (0.00-0.10); Basophils % (A) 0.2 %; Eosinophils # (A) 0.49 X 10*3/uL (0.04-0.35); Eosinophils % (A) 2.4 %; HCT 27.8 % (37.2-46.3); HGB 9.1 d/dL (12.0-15.0); Lymphocytes # (A) 1.81 X 10*3/uL (0.90-5.00); Lymphocytes % (A) 8.8 %; MCH 31.1 pg (27.0-32.0); MCHC 32.7 d/dL (32.0-37.0); MCV 94.9 FL (80.0-97.0); Mean Platelet Volume 11.1 FL (9.5-12.2); Monocytes # (A) 0.81 X 10*3/uL (0.20-1.00); NRBC Per 100 WBC 0 X 10*3/uL (0.00-0.01); Neutrophils # (A) 17.18 X 10*3/uL (1.80-7.70); Neutrophils % (A) 83.8 %; Platelet Count 541 X 10*3/uL (140-440); RBC 2.93 X 10*6/uL (4.10-5.20)
[2023-05-14 08:45] LABS: Blood Urea Nitrogen 14.8 mg/dL (9.0-27.0); Calcium 8.7 mg/dL (8.7-10.3); Carbon Dioxide 21.1 mmol/L (21.6-31.8); Chloride 106 mmol/L (96-109); Glucose 96 mg/dL (70-110); Potassium 3.6 mmol/L (3.5-5.5); Sodium 138 mmol/L (135-145)
[2023-05-14] MEDS: IPRATROPIUM-ALBUTEROL 3 ML NEB INHALATION SCH ×3 (08:45→20:37)
--- NOTE | 2023-05-14 20:39 | P.PN ---
Subjective Progress Note Date: 05/14/23 Principal diagnosis: acute appendicitis on CT 62F presented to ER with complaints of right lower quadrant abdominal pain for the past week. Has had associated nausea & vomiting. Hasn't had much of an appetite for the past week. Last had some Vernors early this morning (over 8 hours ago). Decided to come in to ER because symptoms were not resolving. Has a history of ectopic . Had CT scan done in the ER, revealing acute appendicitis with no associated abscess. BP little soft on admission with leukocytosis of 31, suspect component of dehydration as well as inflammation. Underwent laparoscopic appendectomy on 05/11; noted to have a ruptured appendix with feculuent peritonitis. WBC up today slightly. No tachycardia. CXR with bilateral infiltrates. Despite that, feeling well. Tolerating diet. Passing flatus. Eager to go home. Objective - Vital Signs Vital signs: Vital Signs Temp 98.4 F 05/14/23 07:59 Pulse 96 05/14/23 12:30 Resp 18 05/14/23 08:00 BP 116/71 05/14/23 07:59 Pulse Ox 92 L 05/14/23 07:59 FiO2 Intake & Output 05/13/23 05/14/23 05/14/23 18:59 06:59 18:59 Intake Total 240 Output Total 30 50 Balance 240 -30 -50 Intake: Oral 240 Output: Drainage 30 Abdomen 30 Urine 50 Other: # Voids 3 1 1 - Constitutional General appearance: Present: cooperative, no acute distress - EENT Eyes: Present: anicteric sclerae ENT: Present: hearing grossly normal - Neck Details: supple - Respiratory Details: non labored, normal effort - Cardiovascular Rhythm: regular - Gastrointestinal Gastrointestinal Comment(s): incisions with steri-strips; umbilical with ecchymosis; minimal tenderness; no peritonitis General gastrointestinal: Present: soft. Absent: distended, rigid, scaphoid - Integumentary Integumentary Comment(s): warm & dry, no diaphoresis - Neurologic Neurologic Comment(s): no gross deficits - Musculoskeletal Musculoskeletal Comment(s): no LE edema - Psychiatric Psychiatric Comment(s): cooperative, normal affect - Labs CBC & Chem 7: 05/14/23 05:54 05/14/23 05:54 Labs: Abnormal Lab Results - Last 24 Hours (Table) 05/14/23 05/14/23 Range/Units 05:54 05:54 WBC 20.50 H (4.50-10.00) X 10*3/uL RBC 2.93 L (4.10-5.20) X 10*6/uL Hgb 9.1 L (12.0-15.0) d/dL Hct 27.8 L (37.2-46.3) % RDW 15.0 H (11.5-14.5) % Plt Count 541 H (140-440) X 10*3/uL Neutrophils # 17.18 H (1.80-7.70) X 10*3/uL Eosinophils # 0.49 H (0.04-0.35) X 10*3/uL Carbon Dioxide 21.1 L (21.6-31.8) mmol/L Creatinine 0.5 L (0.6-1.5) mg/dL BUN/Creatinine Ratio 29.60 H (12.00-20.00) Ratio - Imaging and Cardiology Chest x-ray: report reviewed, image reviewed Assessment and Plan Assessment: acute appendicitis s/p laparoscopic appendectomy 7/2 leukocytosis, 2/2 dehydration & inflammation - suspect due to atelectasis & infiltrates but still at risk for pelvic abscess due to feculent peritonitis slight hypotension, responded to fluids- improved Plan: Bandaid dressings removed Needs one more day of IV abx due to feculent peritonitis Trend WBC, if elevated tomorrow will obtain CT A/P to evaluate for pelvic abscess & possible need for IR drain Otherwise, if WBC down-trending, consider discharge tomorrow with 7 more days of oral abx
[2023-05-14 20:49] VITALS: RESP 16
--- NOTE | 2023-05-14 21:39 | PN ---
PROGRESS NOTE DATE OF SERVICE: 05/14/2023 SUBJECTIVE: This is a 62-year-old woman who was admitted with acute appendicitis, gangrene and also had features of sepsis. The patient is on broad-spectrum IV antibiotics. The most recent chest x-ray reviewed personally by me showed possible bilateral lower lobe infiltrate, possible pneumonia versus atelectasis. PAST MEDICAL HISTORY: Reviewed. REVIEW OF SYSTEMS: A 14-point review is negative except as mentioned earlier. CURRENT MEDICATIONS: Reviewed. PHYSICAL EXAMINATION: VITAL SIGNS: Pulse is 82, blood pressure 116/70, respirations 18. HEENT: Conjunctivae normal. NECK: No jugular venous distention. CARDIOVASCULAR: S1, S2 normal. RESPIRATORY: Few scattered rhonchi. ABDOMEN: Soft, status post surgery. LABORATORY DATA: WBC 20.5. CRP is 31.4. ASSESSMENT: 1. Acute appendicitis. Check gangrene, status post laparoscopic appendectomy with VIRGILIO drain and possible sepsis, present on admission. 2. Possible bibasilar pneumonia versus atelectasis. 3. Increased WBC. 4. Hypertension. 5. Multiple medical problems. RECOMMENDATIONS: Recommend to continue current medications. Continue symptomatic treatment. Repeat labs. Continue with antibiotics. Closely follow with Surgery and also follow the patient along with Dr. Telles, Infectious Disease also. See orders for further details. MMODL / IJN: [id number] /
--- NOTE | 2023-05-14 22:56 | P.CONS ---
History of Present Illness - Reason for Consult Consult date: 05/14/23 - History of Present Illness Patient is a 62-year-old female presenting to the hospital 05/11/2023 for evaluation of abdominal pain of 1 week duration patient was described the pain to be sharp almost 10 out of 10 in severity by the time she was in the hospital some nausea no vomiting be did have decreased oral intake patient on presentation to the hospital was afebrile he did have a few low-grade fever since then patient was not hypotensive or tachycardic did have mild hypoxemia patient did have a white count of 31.6 on admission he did came back to 17.7 yesterday however is up to 20,000 today with a left shift patient did have a normal creatinine level exams are normal urine was negative patient did have a CT abdominal pelvis that was suggestive of acute appendicitis patient was evaluated by general surgery in this patient who is status post laparoscopic appendectomy with VIRGILIO drain placement operative findings were acute ruptured gangrenous appendicitis with significant purulent and feculent peritonitis no cultures were done patient did not have any blood cultures done during this admission either patient did have a chest x-ray this morning stable bilateral lower lobe infiltrate small right effusion with concern for possible pneumonia infectious disease was consulted for further management of her by therapy patient has been on Zosyn patient did mention that her abdominal pain has decreased in intensity still have decreased oral intake but no further nausea vomiting did not have any bowel movement however has been passing gas she did have some cough which is mild in intensity and not bringing up any sputum no choking on the food Past Medical History Past Medical History: Hypertension Additional Past Medical History / Comment(s): back pain History of Any Multi-Drug Resistant Organisms: None Reported Past Surgical History: Orthopedic Surgery Additional Past Surgical History / Comment(s): ectopic Smoking Status: Current every day smoker Past Alcohol Use History: None Reported Past Drug Use History: None Reported Medications and Allergies Home Medications Medication Instructions Recorded Confirmed Type HYDROcodone/APAP 7.5-325MG [[place] 1 tab PO QID 05/11/23 05/11/23 History 7.5-325] Lisinopril-Hctz 20-12.5 mg 1 tab PO DAILY 05/11/23 05/11/23 History [Zestoretic 20-12.5] Naproxen [Naprosyn] 500 mg PO BID 05/11/23 05/11/23 History Allergies Allergy/AdvReac Type Severity Reaction Status Date / Time No Known Allergies Allergy Verified 05/11/23 16:47 Physical Exam Vitals: Vital Signs Temp Pulse Pulse Pulse Resp BP BP 05/14/23 08:56 93 05/14/23 08:46 90 05/14/23 08:00 82 84 18 05/14/23 07:59 98.4 F 84 18 116/71 05/14/23 02:00 97.6 F 91 16 118/70 05/13/23 21:33 82 98 17 05/13/23 19:43 94 05/13/23 19:30 98.5 F 97 98 17 121/72 05/13/23 15:38 82 05/13/23 15:31 80 05/13/23 13:30 99.0 F 94 18 138/71 Pulse Ox 05/14/23 08:56 05/14/23 08:46 05/14/23 08:00 05/14/23 07:59 92 L 05/14/23 02:00 91 L 05/13/23 21:33 05/13/23 19:43 05/13/23 19:30 92 L 05/13/23 15:38 05/13/23 15:31 05/13/23 13:30 95 Intake and Output 05/13/23 05/14/23 05/14/23 22:59 06:59 14:59 Intake Total 240 Output Total 30 50 Balance 240 -30 -50 Intake: Oral 240 Output: Drainage 30 Abdomen 30 Urine 50 Other: # Voids 1 1 Results CBC & Chem 7: 05/14/23 05:54 05/14/23 05:54 Labs: Abnormal Lab Results - Last 24 Hours (Table) 05/13/23 05/14/23 05/14/23 Range/Units 12:01 05:54 05:54 WBC 17.6 H 20.50 H (3.8-10.6) k/uL RBC 2.93 L 2.93 L (3.80-5.40) m/uL Hgb 9.0 L D 9.1 L (11.4-16.0) gm/dL Hct 28.3 L 27.8 L (34.0-46.0) % RDW 15.0 H (11.5-14.5) % Plt Count 466 H 541 H (150-450) k/uL Neutrophils # 17.18 H (1.80-7.70) X 10*3/uL Eosinophils # 0.49 H (0.04-0.35) X 10*3/uL Carbon Dioxide 21.1 L (21.6-31.8) mmol/L Creatinine 0.5 L (0.6-1.5) mg/dL BUN/Creatinine Ratio 29.60 H (12.00-20.00) Ratio Assessment and Plan Plan: 1patient was in the hospital with acute kidney symphysitis with perforation status post laparoscopic appendectomy in this patient now with some respiratory symptoms abnormal x-ray more likely representing possible postop atelectasis clinically not behaving as pneumonia 2-patient has been encouraged to use incentive spirometer regularly 3-we will obtain blood cultures CRP procalcitonin and try to obtain a sputum 4-continue with the Zosyn at this point We will follow on clinical condition and cultures to further adjust medication if needed Thank you for this consultation we will follow the patient along with you Time with Patient: Greater than 30
[2023-05-15] MEDS: HYDROcodone/APAP 7.5-325MG 1 EACH TAB PO PRN ×3 (00:57→12:05)
[2023-05-15] MEDS: PIPERACILLIN-TAZOBACTAM 3.375 GM in SODIUM CHLORIDE 0.9% 100 ML IVPB SCH ×2 (00:57→09:14)
[2023-05-15] MEDS: IPRATROPIUM-ALBUTEROL 3 ML NEB INHALATION SCH ×2 (07:57→15:07)
[2023-05-15] MEDS: DOCUSATE 100 MG CAP PO SCH (09:14)
[2023-05-15] MEDS: ENOXAPARIN 40 MG/0.4 ML SYRINGE SQ SCH (09:16)
[2023-05-15 11:44] LABS: ALT 44 U/L (8-44); AST 38 U/L (13-35); Albumin 2.6 d/dL (3.8-4.9); Alkaline Phosphatase 273 U/L (41-126); BUN/Creat Ratio 29.25 Ratio (12.00-20.00); Blood Urea Nitrogen 11.7 mg/dL (9.0-27.0); Calcium 8.5 mg/dL (8.7-10.3); Carbon Dioxide 23.5 mmol/L (21.6-31.8); Chloride 104 mmol/L (96-109); Globulin 2.6 d/dL (1.6-3.3); Glucose 94 mg/dL (70-110); Potassium 3.7 mmol/L (3.5-5.5); Sodium 140 mmol/L (135-145); Total Bilirubin 0.4 mg/dL (0.3-1.2); Total Protein 5.2 d/dL (6.2-8.2)
[2023-05-15 11:59] LABS: HCT 27.2 % (37.2-46.3); HGB 8.7 d/dL (12.0-15.0); MCH 30.4 pg (27.0-32.0); MCV 95.1 FL (80.0-97.0); Mean Platelet Volume 10.7 FL (9.5-12.2); NRBC Per 100 WBC 0 X 10*3/uL (0.00-0.01); Platelet Count 652 X 10*3/uL (140-440); RBC 2.86 X 10*6/uL (4.10-5.20); RDW 15.1 % (11.5-14.5); WBC 15.88 X 10*3/uL (4.50-10.00)
[2023-05-15 13:12] LABS: Basophils # (A) 0.04 X 10*3/uL (0.00-0.10); Basophils % (A) 0.3 %; Eosinophils # (A) 0.47 X 10*3/uL (0.04-0.35); Lymphocytes # (A) 2.27 X 10*3/uL (0.90-5.00); Lymphocytes % (A) 14.3 %; Monocytes # (A) 1.02 X 10*3/uL (0.20-1.00); Monocytes % (A) 6.4 %; Neutrophils # (A) 11.79 X 10*3/uL (1.80-7.70); Neutrophils % (A) 74.2 %; RBC Morphology Normal (Normal)
[2023-05-15 13:42] VITALS: BP 149/69; PULSE 85; TEMP 98.1
--- NOTE | 2023-05-15 15:51 | P.DS ---
Providers Date of admission: 05/11/23 17:04 Expected date of discharge: 05/15/23 Attending physician: Stacie Otero DO Consults: 05/11/23 16:26 Consult Physician Routine Consulting Provider: Kate Donaldson Consult Reason/Comments: medicine consult Do you want consulting provider notified?: Yes 05/14/23 10:12 Consult Physician Urgent Consulting Provider: Kemar Telles Consult Reason/Comments: ? sepsis, post appe, pna? Do you want consulting provider notified?: Yes Primary care physician: Amada Forbes Hospital Course: 62F presented to ER with complaints of right lower quadrant abdominal pain for the past week. Has had associated nausea & vomiting. Hasn't had much of an appetite for the past week. Last had some Vernors early this morning (over 8 hours ago). Decided to come in to ER because symptoms were not resolving. Has a history of ectopic . Had CT scan done in the ER, revealing acute appendicitis with no associated abscess. BP little soft on admission with leukocytosis of 31, suspect component of dehydration as well as inflammation. Underwent laparoscopic appendectomy on 05/11; noted to have a ruptured appendix with feculuent peritonitis. Post-operatively did well. Leukocytosis down-trended. Tolerating diet with BMs, flatus. Pain well controlled with home pain regimen. Ambulating in halls. VIRGILIO with minimal serous output; removed on day of discharge. Assessment: Resting comfortably, NAD No icterus Non labored, normal effort & excursion Reg rate Abdomen soft, nondistended, non tender; incisions healing well & without signs of infection; VIRGILIO with minimal serous output No LE edema No gross neuro deficits Cooperative, normal affect Pertinent Studies: Sputum cx pending Procedures: laparoscopic appendectomy 05/11 Patient Condition at Discharge: Good Plan - Discharge Summary Discharge Rx Participant: Yes New Discharge Prescriptions: No Action Lisinopril-Hctz 20-12.5 mg [Zestoretic 20-12.5] 1 tab PO DAILY HYDROcodone/APAP 7.5-325MG [[place] 7.5-325] 1 tab PO QID Naproxen [Naprosyn] 500 mg PO BID Discharge Medication List HYDROcodone/APAP 7.5-325MG [[place] 7.5-325] 1 tab PO QID 05/11/23 [History] Lisinopril-Hctz 20-12.5 mg [Zestoretic 20-12.5] 1 tab PO DAILY 05/11/23 [History] Naproxen [Naprosyn] 500 mg PO BID 05/11/23 [History] Follow up Appointment(s)/Referral(s): Amada Courtney DO [Primary Care Provider] - 1-2 days Stacie Otero DO [Doctor of Osteopathic Medicine] - 2 Weeks Activity/Diet/Wound Care/Special Instructions: No heavy lifting >10 lbs for next 2 weeks. OK to shower. No hot tubs, soaking, bathing, swimming for next 4 weeks. OK to alternate Motrin with [place] or Tylenol. No Tylenol with [place]. Steristrip dressings will fall off on own or can remove in 2 weeks. Take over the counter stool softener while on pain medications, as they will constipate you. Discharge Disposition: HOME SELF-CARE
== END 2023-05-15 16:53 | disposition home or self-care (01) | DRG 853 ==
LOC: EC 12:04 → 6NMEDSUR 16:27 → OBSVTOIN 17:04 → 6NMEDSUR 17:34
PROVIDERS: ADMIT Surgery; ATTEND Surgery
PROC: 0DTJ4ZZ Resection of Appendix, Percutaneous Endoscopic Approach (ICD-10-PCS; principal; 2023-05-11 18:30)
DX: A41.9 Sepsis, unspecified organism (principal); K35.32 Acute appendicitis with perforation, localized peritonitis, and gangrene, without abscess; J95.89 Other postprocedural complications and disorders of respiratory system, not elsewhere classified; J98.11 Atelectasis; I95.81 Postprocedural hypotension; E86.0 Dehydration; I10 Essential (primary) hypertension; F17.210 Nicotine dependence, cigarettes, uncomplicated
CPT/HCPCS: 36415; 71045; 71046; 74177; 80048; 80053; 81001; 83735; 84100; 84145; 84484; 85025; 85027; 85610; 85730; 86140; 87040; 87070; 87205; 88304; 93005; 94640; 96360; 96361; 99291

== ENCOUNTER 2023-05-20 22:21 | Inpatient (IN) | payer BC ==
[2023-05-20 22:48] LABS: Basophils # (A) 0.1 k/uL (0-0.2); Basophils % (A) 0 %; Eosinophils # (A) 0.4 k/uL (0-0.7); Eosinophils % (A) 2 %; HCT 31.6 % (34.0-46.0); HGB 9.7 gm/dL (11.4-16.0); Lymphocytes # (A) 2.8 k/uL (1.0-4.8); Lymphocytes % (A) 12 %; MCH 29.1 pg (25.0-35.0); MCHC 30.9 g/dL (31.0-37.0); MCV 94.2 fL (80.0-100.0); Mean Platelet Volume 7.3; Monocytes # (A) 0.6 k/uL (0-1.0); Monocytes % (A) 2 %; Neutrophils # (A) 19.3 k/uL (1.3-7.7); Neutrophils % (A) 83 %; Platelet Count 866 k/uL (150-450); RBC 3.35 m/uL (3.80-5.40); RDW 15.5 % (11.5-15.5); WBC 23.3 k/uL (3.8-10.6)
[2023-05-20 22:59] LABS: ALT 96 U/L (4-34); AST 59 U/L (14-36); African American GFR (CKD) >90 (>60 ml/min/1.73 sqM); Albumin 3.1 g/dL (3.5-5.0); Alkaline Phosphatase 187 U/L (38-126); Anion Gap 9 mmol/L; Blood Urea Nitrogen 14 mg/dL (7-17); Calcium 8.6 mg/dL (8.4-10.2); Carbon Dioxide 23 mmol/L (22-30); Chloride 102 mmol/L (98-107); Glucose 114 mg/dL (74-99); Magnesium 1.9 mg/dL (1.6-2.3); Non-African American GFR(CKD) >90 (>60 ml/min/1.73 sqM); Potassium 3.2 mmol/L (3.5-5.1); Sodium 134 mmol/L (137-145); Total Bilirubin 0.3 mg/dL (0.2-1.3); Total Protein 6.4 g/dL (6.3-8.2)
[2023-05-20 23:03] LABS: INR 1.2 (<1.2); Partial Thromboplastin Time 25.7 sec (22.0-30.0); Prothrombin Time 12.3 sec (9.0-12.0)
[2023-05-20] MEDS ORDERED: SODIUM CHLORIDE 0.9% 1,000 ML IV ONE (23:19)
[2023-05-20] MEDS ORDERED: MORPHINE SULFATE 4 MG/ML SYRINGE IVP STA (23:37)
--- NOTE | 2023-05-20 23:45 | ED ---
General Adult HPI - General Chief complaint: Shortness of Breath Stated complaint: SOB Post op comp Time Seen by Provider: 05/20/23 23:20 Source: patient, RN notes reviewed, old records reviewed Mode of arrival: ambulatory Limitations: no limitations - History of Present Illness Initial comments: Patient is a 62-year-old female with past medical history remarkable for hypertension, who recently had her appendix removed on 05/11/2023 who presents emergency Department complaining of increased pain on deep inspiration. States she feels like she can't take a deep breath in. Has pain primarily located in the right flank, right side of her abdomen. States that during the surgery which was microscopically, appendix did burst per patient. This will she is still on Augmentin as an antibiotic. Had been progressing well until somewhat yesterday mostly today when she was having the symptoms that she was having. Denies any fevers. Denies any anterior chest pain or other abdominal pain. Pain does not move. Pain somewhat worse with some movements. No other acute complaints at this time. Denies any coughing. Denies any dysuria or hematuria. Presents for further evaluation at this time. - Related Data Home Medications Medication Instructions Recorded Confirmed HYDROcodone/APAP 7.5-325MG [[place] 1 tab PO QID 05/11/23 05/11/23 7.5-325] Lisinopril-Hctz 20-12.5 mg 1 tab PO DAILY 05/11/23 05/11/23 [Zestoretic 20-12.5] Naproxen [Naprosyn] 500 mg PO BID 05/11/23 05/11/23 Previous Rx's Medication Instructions Recorded Amoxic-Pot Clav 875-125Mg 1 tab PO BID #14 tab 05/15/23 [Augmentin 875-125] HYDROcodone/APAP 7.5-325MG [[place] 1 tab PO Q6HR PRN 3 Days #12 tab 05/15/23 7.5-325] Allergies Allergy/AdvReac Type Severity Reaction Status Date / Time No Known Allergies Allergy Verified 05/20/23 22:26 Review of Systems ROS Statement: Those systems with pertinent positive or pertinent negative responses have been documented in the HPI. Review of Systems: CONST: Denies fever EYES: Denies blurry vision ENT: Denies nasal congestion C/V: Denies Chest pain RESP: Endorses shortness of breath GI: Endorses abdominal pain : Denies dysuria SKIN: Denies rash. MSK: Denies joint pain. NEURO: Denies headache ROS Other: All systems not noted in ROS Statement are negative. Past Medical History Past Medical History: Hypertension Additional Past Medical History / Comment(s): back pain History of Any Multi-Drug Resistant Organisms: None Reported Past Surgical History: Appendectomy, Orthopedic Surgery Additional Past Surgical History / Comment(s): ectopic Past Psychological History: No Psychological Hx Reported Smoking Status: Current every day smoker Past Alcohol Use History: None Reported Past Drug Use History: None Reported General Exam - General Exam Comments Initial Comments: General: Appears in mild distress secondary to abdominal discomfort. Afebrile HEAD: Normal with no signs of head trauma. EYES: PERRLA, EOMI, conjunctiva normal, no discharge. ENT: Hearing grossly intact, normal oropharynx. RESPIRATORY: Clear breath sounds bilaterally. No wheezes, rales, or rhonchi. C/V: Regular rate and rhythm. S1 and S2 auscultated, no edema, peripheral pulses 2+ and intact throughout ABD: Abdomen is soft, nondistended. Tender to palpation in the right flank and somewhat right upper quadrant. Surgical incisions appear unremarkable. No guarding. No rebound tenderness. No peritoneal signs. EXT: Normal range of motion, no obvious deformity SKIN: No rashes or lesions observed on exposed skin. NEURO: Alert and oriented 4. Limitations: no limitations Course Vital Signs 05/20/23 05/21/23 05/21/23 22:22 00:39 01:30 Temperature 98.7 F Pulse Rate 88 75 73 Respiratory 18 24 23 Rate Blood Pressure 107/71 118/59 119/55 O2 Sat by Pulse 97 Oximetry 05/21/23 05/21/23 05/21/23 02:00 03:00 05:00 Temperature 98.8 F Pulse Rate 72 78 78 Respiratory 23 24 28 H Rate Blood Pressure 119/57 124/62 123/60 O2 Sat by Pulse Oximetry Medical Decision Making - Medical Decision Making Was pt. sent in by a medical professional or institution (, PA, DIRECTOR PUBLIC SERVICE, urgent care, hospital, or skilled nursing...) When possible be specific @ -No Did you speak to anyone other than the patient for history (EMS, parent, family, police, friend...)? What history was obtained from this source @ -No Did you review nursing and triage notes (agree or disagree)? Why? @ -I reviewed and agree with nursing and triage notes Were old charts reviewed (outside hosp., previous admission, EMS record, old EKG, old radiological studies, urgent care reports/EKG's, skilled nursing records)? Report findings @ -Reviewed charts from 05/11/2023 Differential Diagnosis (chest pain, altered mental status, abdominal pain women, abdominal pain men, vaginal bleeding, weakness, fever, dyspnea, syncope, headache, dizziness, GI bleed, back pain, seizure, CVA, palpatations, mental health, musculoskeletal)? @ -Differential Dyspnea: Coronary syndrome, arrhythmia, tamponade, asthma, COPD, pulmonary embolism, pneumonia, pneumothorax, pulmonary effusion, anaphylaxis, diabetic ketoacidosis, flailed chest, pulmonary contusion, diaphragmatic rupture, anemia, n euromuscular, this is not meant to be an all-inclusive list. Differential Abdominal Pain Women: Appendicitis, Cholecystitis, diverticulosis, ischemic bowel, pancreatitis, hepatitis, UTI, gastroenteritis, AAA, incarcerated hernia, bowel obstruction, constipation, inflammatory bowel, hepatitis, peptic ulcer disease, splenic infarction, perforated viscus, vulvitis, ovarian torsion, PID, kidney stone, placenta abruption, this is not meant to be an all-inclusive list EKG interpreted by me (3pts min.). @ -As above X-rays interpreted by me (1pt min.). @ -Chest x-ray shows no obvious acute cardio pulmonary process. CT interpreted by me (1pt min.). @ -CTA of the thorax reveals no obvious pulmonary embolism. CT of the abdomen and pelvis reveals a fluid collection in the lower posterior pelvis suggestive of an abscess. Radiology measures 7 x 4.8 x 65.7 cm U/S interpreted by me (1pt. min.). @ -None done What testing was considered but not performed or refused? (CT, X-rays, U/S, labs)? Why? @ -None What meds were considered but not given or refused? Why? @ -None Did you discuss the management of the patient with other professionals (professionals i.e. , PA, DIRECTOR PUBLIC SERVICE, lab, RT, psych nurse, social worker palliative care, welder [employer], teacher, first officer, case repairer)? Give summary @ -Discussed with patient's surgeon, Dr. Otero who was in agreement with the plan for admission, IV antibiotics, requested I consult IR which was completed. I also consulted medicine. [facility]. Was smoking cessation discussed for >3mins.? @ -No Was critical care preformed (if so, how long)? @ -No Were there social determinants of health that impacted care today? How? (Homelessness, low income, unemployed, alcoholism, drug addiction, transportation, low edu. Level, literacy, decrease access to med. care, fdc, rehab)? @ -No Was there de-escalation of care discussed even if they declined (Discuss DNR or withdrawal of care, Hospice)? DNR status @ -No What co-morbidities impacted this encounter? (DM, HTN, Smoking, COPD, CAD, Cancer, CVA, ARF, Chemo, Hep., AIDS, mental health diagnosis, sleep apnea, morbid obesity)? @ -None Was patient admitted / discharged? Hospital course, mention meds given and rou te, prescriptions, significant lab abnormalities, going to OR and other pertinent info. @ -Based on the patient's presentation and physical exam, she presents complaining of right-sided abdominal pain as well as difficulty breathing in the setting of recent appendectomy [address] Otero. Had been progressing well at home but symptoms began yesterday. Appendix did rupture on removal. No history of blood clots. Has been on Augmentin at home. No fevers. Vital signs within except limits. Work up was started in triage I evaluated the patient and she was placed in trauma bay 3. Workup was significant for a leukocytosis of 23.3. A chronic anemia with a hemoglobin of 9.7, a chronic thrombocytosis with platelets of 866, and elevated d-dimer 3.75, a hypokalemia at 3.2, as well as an elevated troponin of 0.049. EKG shows no obvious changes to suggest acute ische rozina. Chest x-ray unremarkable. I did update the patient results of her workup after evaluation. I'm concerned for possible infectious etiology in her abdomen versus possible pulmonary embolism concerning her recent hospitalization as well as dyspnea. It does appear that her shortness of breath is secondary to the pain in her right flank however we will obtain a CT PE as well as CT abdomen and pelvis. Patient was in agreement with this plan. She'll be given a 1 L fluid bolus, started empiri juan luis on Zosyn, as well as morphine 4 mg for pain control. Blood cultures will be obtained. We'll add on a urinalysis as well as BNP. Patient's imaging reveals no pulmonary embolism the patient does have a postop abscess present in the lower posterior pelvis. I obtain the patient. This is likely source of her discomfort and lab findings. She was already empirically started on zosyn and I will add vancomycin on. We'll continue with IV fluid hydration. Patient is made nothing by mouth for now. We'll continue with pain medications. She'll be admitted to the hospital. She was in agreement this plan. Troponin elevation is likely secondary to underlying infectious process. We will continue to monitor. I spoke with the patient's surgeon, Dr. Otero who accepted the admission. Was in agreement with the plan. Requested I consult IR which was completed as well as consult medicine for medical management. I spoke with KRYSTYNA Richter of [facility] who accepted the consult. Undiagnosed new problem with uncertain prognosis? @ -No Drug Therapy requiring intensive monitoring for toxicity (Heparin, Nitro, Insulin, Cardizem)? @ -No Were any procedures done? @ -No Diagnosis/symptom? @ -Post op intra-abdominal abscess Acute, or Chronic, or Acute on Chronic? @ -Acute Uncomplicated (without systemic symptoms) or Complicated (systemic symptoms)? @ -Complicated Side effects of treatment? @ -none Exacerbation, Progression, or Severe Exacerbation] @ -no Poses a threat to life or bodily function? @ -Yes - Lab Data Result diagrams: 05/20/23 22:39 05/20/23 22:39 Lab Results 05/20/23 05/20/23 05/20/23 Range/Units 22:39 22:39 22:39 WBC 23.3 H (3.8-10.6) k/uL RBC 3.35 L (3.80-5.40) m/uL Hgb 9.7 L (11.4-16.0) gm/dL Hct 31.6 L (34.0-46.0) % MCV 94.2 (80.0-100.0) fL MCH 29.1 (25.0-35.0) pg MCHC 30.9 L (31.0-37.0) g/dL RDW 15.5 (11.5-15.5) % Plt Count 866 H (150-450) k/uL MPV 7.3 Neutrophils % 83 % Lymphocytes % 12 % Monocytes % 2 % Eosinophils % 2 % Basophils % 0 % Neutrophils # 19.3 H (1.3-7.7) k/uL Lymphocytes # 2.8 (1.0-4.8) k/uL Monocytes # 0.6 (0-1.0) k/uL Eosinophils # 0.4 (0-0.7) k/uL Basophils # 0.1 (0-0.2) k/uL PT 12.3 H (9.0-12.0) sec INR 1.2 H (<1.2) APTT 25.7 (22.0-30.0) sec D-Dimer 3.75 H (<0.60) mg/L FEU Sodium 134 L (137-145) mmol/L Potassium 3.2 L (3.5-5.1) mmol/L Chloride 102 (98-107) mmol/L Carbon Dioxide 23 (22-30) mmol/L Anion Gap 9 mmol/L BUN 14 (7-17) mg/dL Creatinine 0.44 L (0.52-1.04) mg/dL Est GFR (CKD-EPI)AfAm >90 (>60 ml/min/1.73 sqM) Est GFR (CKD-EPI)NonAf >90 (>60 ml/min/1.73 sqM) Glucose 114 H (74-99) mg/dL Plasma Lactic Acid Unruly (0.7-2.0) mmol/L Calcium 8.6 (8.4-10.2) mg/dL Magnesium 1.9 (1.6-2.3) mg/dL Total Bilirubin 0.3 (0.2-1.3) mg/dL AST 59 H (14-36) U/L ALT 96 H (4-34) U/L Alkaline Phosphatase 187 H (38-126) U/L Troponin I (0.000-0.034) ng/mL NT-Pro-B Natriuret Pep pg/mL Total Protein 6.4 (6.3-8.2) g/dL Albumin 3.1 L (3.5-5.0) g/dL Urine Color Urine Appearance (Clear) Urine pH (5.0-8.0) Ur Specific [place] (1.001-1.035) Urine Protein (Negative) Urine Glucose (UA) (Negative) Urine Ketones (Negative) Urine Blood (Negative) Urine Nitrite (Negative) Urine Bilirubin (Negative) Urine Urobilinogen (<2.0) mg/dL Ur Leukocyte Esterase (Negative) Urine RBC (0-5) /hpf Urine WBC (0-5) /hpf Ur Squamous Epith Cells (0-4) /hpf Amorphous Sediment (None) /hpf Hyaline Casts (0-2) /lpf Urine Mucus (None) /hpf 05/20/23 05/20/23 05/20/23 Range/Units 22:39 22:39 22:39 WBC (3.8-10.6) k/uL RBC (3.80-5.40) m/uL Hgb (11.4-16.0) gm/dL Hct (34.0-46.0) % MCV (80.0-100.0) fL MCH (25.0-35.0) pg MCHC (31.0-37.0) g/dL RDW (11.5-15.5) % Plt Count (150-450) k/uL MPV Neutrophils % % Lymphocytes % % Monocytes % % Eosinophils % % Basophils % % Neutrophils # (1.3-7.7) k/uL Lymphocytes # (1.0-4.8) k/uL Monocytes # (0-1.0) k/uL Eosinophils # (0-0.7) k/uL Basophils # (0-0.2) k/uL PT (9.0-12.0) sec INR (<1.2) APTT (22.0-30.0) sec D-Dimer (<0.60) mg/L FEU Sodium (137-145) mmol/L Potassium (3.5-5.1) mmol/L Chloride (98-107) mmol/L Carbon Dioxide (22-30) mmol/L Anion Gap mmol/L BUN (7-17) mg/dL Creatinine (0.52-1.04) mg/dL Est GFR (CKD-EPI)AfAm (>60 ml/min/1.73 sqM) Est GFR (CKD-EPI)NonAf (>60 ml/min/1.73 sqM) Glucose (74-99) mg/dL Plasma Lactic Acid Unruly 0.9 (0.7-2.0) mmol/L Calcium (8.4-10.2) mg/dL Magnesium (1.6-2.3) mg/dL Total Bilirubin (0.2-1.3) mg/dL AST (14-36) U/L ALT (4-34) U/L Alkaline Phosphatase (38-126) U/L Troponin I 0.049 H* (0.000-0.034) ng/mL NT-Pro-B Natriuret Pep 269 pg/mL Total Protein (6.3-8.2) g/dL Albumin (3.5-5.0) g/dL Urine Color Urine Appearance (Clear) Urine pH (5.0-8.0) Ur Specific [place] (1.001-1.035) Urine Protein (Negative) Urine Glucose (UA) (Negative) Urine Ketones (Negative) Urine Blood (Negative) Urine Nitrite (Negative) Urine Bilirubin (Negative) Urine Urobilinogen (<2.0) mg/dL Ur Leukocyte Esterase (Negative) Urine RBC (0-5) /hpf Urine WBC (0-5) /hpf Ur Squamous Epith Cells (0-4) /hpf Amorphous Sediment (None) /hpf Hyaline Casts (0-2) /lpf Urine Mucus (None) /hpf 05/21/23 Range/Units 00:24 WBC (3.8-10.6) k/uL RBC (3.80-5.40) m/uL Hgb (11.4-16.0) gm/dL Hct (34.0-46.0) % MCV (80.0-100.0) fL MCH (25.0-35.0) pg MCHC (31.0-37.0) g/dL RDW (11.5-15.5) % Plt Count (150-450) k/uL MPV Neutrophils % % Lymphocytes % % Monocytes % % Eosinophils % % Basophils % % Neutrophils # (1.3-7.7) k/uL Lymphocytes # (1.0-4.8) k/uL Monocytes # (0-1.0) k/uL Eosinophils # (0-0.7) k/uL Basophils # (0-0.2) k/uL PT (9.0-12.0) sec INR (<1.2) APTT (22.0-30.0) sec D-Dimer (<0.60) mg/L FEU Sodium (137-145) mmol/L Potassium (3.5-5.1) mmol/L Chloride (98-107) mmol/L Carbon Dioxide (22-30) mmol/L Anion Gap mmol/L BUN (7-17) mg/dL Creatinine (0.52-1.04) mg/dL Est GFR (CKD-EPI)AfAm (>60 ml/min/1.73 sqM) Est GFR (CKD-EPI)NonAf (>60 ml/min/1.73 sqM) Glucose (74-99) mg/dL Plasma Lactic Acid Unruly (0.7-2.0) mmol/L Calcium (8.4-10.2) mg/dL Magnesium (1.6-2.3) mg/dL Total Bilirubin (0.2-1.3) mg/dL AST (14-36) U/L ALT (4-34) U/L Alkaline Phosphatase (38-126) U/L Troponin I (0.000-0.034) ng/mL NT-Pro-B Natriuret Pep pg/mL Total Protein (6.3-8.2) g/dL Albumin (3.5-5.0) g/dL Urine Color Yellow Urine Appearance Clear (Clear) Urine pH 7.0 (5.0-8.0) Ur Specific [place] >1.050 H (1.001-1.035) Urine Protein 1+ H (Negative) Urine Glucose (UA) Negative (Negative) Urine Ketones Negative (Negative) Urine Blood Negative (Negative) Urine Nitrite Negative (Negative) Urine Bilirubin Negative (Negative) Urine Urobilinogen <2.0 (<2.0) mg/dL Ur Leukocyte Esterase Negative (Negative) Urine RBC 2 (0-5) /hpf Urine WBC 14 H (0-5) /hpf Ur Squamous Epith Cells 4 (0-4) /hpf Amorphous Sediment Rare H (None) /hpf Hyaline Casts 20 H (0-2) /lpf Urine Mucus Few H (None) /hpf - EKG Data -: EKG Interpreted by Me EKG Comments: 12-lead Electrocardiogram Interpretation Note EKG was reviewed and interpreted by myself. 12-lead ECG performed at 2230 is interpreted by me as revealing normal sinus rhythm at a rate of 77 beats per minute. [place] is normal. MI interval is 146 ms, QRS duration is 77 ms, QTc is 423 ms.. There were no ST or T wave abnormalities to suggest myocardial ischemia or injury. R wave progression across the precordium was satisfactory. By my interpretation this EKG is non-diagnostic for acute ischemia. Disposition Clinical Impression: Post op infection, Intra-abdominal abscess Disposition: ADMITTED IP TO THIS HOSP Condition: Serious Time of Disposition: 00:55
[2023-05-20] MEDS ORDERED: PIPERACILLIN-TAZOBACTAM 3.375 GM in SODIUM CHLORIDE 0.9% 100 ML IVPB STA (23:54)
--- NOTE | 2023-05-21 00:29 | CT ---
EXAM: CT Angiography Chest With Intravenous Contrast CLINICAL HISTORY: CT Reason: elevated dimer, eval for PE TECHNIQUE: Axial computed tomographic angiography images of the chest with intravenous contrast. CTDI is 12 mGy and DLP is 364.7 mGy-cm. This CT exam was performed using one or more of the following dose reduction techniques: automated exposure control, adjustment of the mA and/or kV according to patient size, and/or use of iterative reconstruction technique. MIP reconstructed images were created and reviewed. COMPARISON: May 11, 2023 FINDINGS: Pulmonary arteries: The pulmonary arterial tree is well opacified with contrast. No pulmonary embolism is identified. Aorta: No acute findings. No thoracic aortic aneurysm. Lungs: See below. Pleural space: There is a new small right pleural effusion layering 1. 3 cm and development right lower lobe partial atelectasis and volume loss since previous. Trace the pleural effusion measuring a few millimeters with small amount of adjacent subsegmental atelectasis. No pneumothorax. Heart: Unremarkable. No cardiomegaly. No significant pericardial effusion. No evidence of RV dysfunction. Bones/joints: Mild multilevel osteophytosis throughout the thoracic spine. No fracture or destructive bone lesion is seen. No dislocation. Soft tissues: Unremarkable. Lymph nodes: Unremarkable. No enlarged lymph nodes. IMPRESSION: 1. The pulmonary arterial tree is well opacified with contrast. No pulmonary embolism is identified. No aortic aneurysm or dissection. 2. There is a new small right pleural effusion layering 1.3 cm and development of right lower lobe partial atelectasis and volume loss since previous.
--- NOTE | 2023-05-21 00:52 | CT ---
EXAM: CT Abdomen and Pelvis With Intravenous Contrast CLINICAL HISTORY: CT Reason: recent appendectomy TECHNIQUE: Axial computed tomography images of the abdomen and pelvis with intravenous contrast. CTDI is 21 mGy and DLP is 1034.9 mGy-cm. This CT exam was performed using one or more of the following dose reduction techniques: automated exposure control, adjustment of the mA and/or kV according to patient size, and/or use of iterative reconstruction technique. COMPARISON: No relevant prior studies available. FINDINGS: Lung bases: See below. Pleural space: There is a new small right pleural effusion layering 1. 3 cm and small amount of right lower lobe atelectasis. ABDOMEN: Liver: Unremarkable. No mass. Gallbladder and bile ducts: Unremarkable. No calcified stones. No ductal dilation. Pancreas: Unremarkable. No mass. No ductal dilation. Spleen: Unremarkable. No splenomegaly. Adrenals: Unremarkable. No mass. Kidneys and ureters: Unremarkable. No solid mass. No hydronephrosis. Stomach and bowel: There is a 7 x 4.8 x 5.7 cm fluid collection in the posterior pelvis between the rectum and uterus. Consider developing abscess. No obstruction. No mucosal thickening. PELVIS: Appendix: There is a line of jamie adjacent to the cecum and the right lower quadrant. The appendix has been removed. There is a small amount of residual edema right lower quadrant and trace amount of fluid. No abscess is seen in the right lower quadrant. Bladder: Unremarkable. No mass. Reproductive: There is a 2.2 cm fibroid within the uterus. ABDOMEN and PELVIS: Intraperitoneal space: Unremarkable. No free air. No significant fluid collection. Bones/joints: No acute fracture. No dislocation. Soft tissues: Unremarkable. Vasculature: The aorta is mildly calcified but nondilated. Lymph nodes: Unremarkable. No enlarged lymph nodes. IMPRESSION: There is a 7 x 4.8 x 5.7 cm fluid collection in the posterior pelvis between the rectum and uterus. Consider developing abscess. Recent appendectomy with small amount of edema in the right lower quadrant. Small right pleural effusion and partial right lower lobe atelectasis.
[2023-05-21] MEDS ORDERED: VANCOMYCIN IV PER PHARMACY 1 EACH MISC MISCELLANE PRN (00:54)
[2023-05-21] MEDS ORDERED: SODIUM CHLORIDE 0.9% 1,000 ML IV STA (00:55)
[2023-05-21] MEDS ORDERED: VANCOMYCIN 1,250 MG in SODIUM CHLORIDE 0.9% 250 ML IVPB STA (00:56)
[2023-05-21] MEDS ORDERED: NALOXONE 0.4 MG/ML 1 ML VIAL IV PRN ×2 (01:02→01:03)
[2023-05-21] MEDS ORDERED: ACETAMINOPHEN TAB 325 MG TAB PO PRN (01:02)
[2023-05-21] MEDS ORDERED: ONDANSETRON 4 MG/2 ML VIAL IVP PRN (01:02)
[2023-05-21 01:13] LABS: Amorphous Sediment,Urine Rare /hpf; Appearance,Urine Clear (Clear); Bilirubin,Urine Negative (Negative); Blood,Urine Negative (Negative); Color,Urine Yellow; Glucose,Urine (UA) Negative (Negative); Hyaline Casts,Urine 20 /lpf (0-2); Ketones,Urine Negative (Negative); Leukocyte Esterase,Urine Negative (Negative); Mucus,Urine Few /hpf; Nitrite,Urine Negative (Negative); Protein,Urine 1+ (Negative); RBC,Urine 2 /hpf (0-5); Squamous Epithelial Cell,Urine 4 /hpf (0-4); Urobilinogen,Urine <2.0 mg/dL (<2.0); WBC,Urine 14 /hpf (0-5)
[2023-05-21 01:16] LABS: Specific Gravity,Urine >1.050 (1.001-1.035)
[2023-05-21] MEDS: MORPHINE SULFATE 4 MG/ML SYRINGE IV PRN ×2 (02:30→08:44)
[2023-05-21] MEDS: HYDROmorphone 0.5 MG/0.5 ML SYRINGE IVP STA ×2 (04:32→14:57)
--- NOTE | 2023-05-21 07:18 | XR ---
EXAMINATION TYPE: XR chest 2V DATE OF EXAM: 05/20/2023 10:55 PM COMPARISON: Chest radiographs from 05/14/2023 TECHNIQUE: XR chest 2V Frontal and lateral views of the chest. CLINICAL INDICATION:Female, 62 years old with history of difficulty breathing; FINDINGS: Lungs/Pleura: Bibasilar atelectasis. No evidence for pneumothorax, pleural effusion or focal consolid ation. Pulmonary vascularity: Unremarkable. Heart/mediastinum: Cardiomediastinal silhouette is unremarkable. Musculoskeletal: No acute osseous pathology. IMPRESSION: Basilar atelectasis, No acute cardiopulmonary disease/process.
[2023-05-21] MEDS ORDERED: IPRATROPIUM-ALBUTEROL 3 ML NEB INHALATION PRN (12:10)
[2023-05-21] MEDS ORDERED: Potassium Replacement Protocol 1 EACH MISC MISCELLANE PRN (12:29)
--- NOTE | 2023-05-21 13:24 | P.GSHP ---
History of Present Illness H&P Date: 05/21/23 Chief Complaint: pelvic abscess on CT s/p laparoscopic appendectomy 62F initially presented to the ER with complaints of right lower quadrant abdominal pain for the past week. Was found to have a CT concerning for acute appendicitis with no associated abscess. Underwent laparoscopic appendectomy on 05/11; noted to have a ruptured appendix with feculuent peritonitis. Post oper atively did well. Eager to go home as was tolerating PO diet, passing flatus; pain well controlled with PO analgesia. Discussed at that time she was higher risk for abscess development due to feculent peritonitis; symptoms to prompt return visit to ER discussed & was sent home with PO antibiotics after 3 days of inpatient IV antibiotics. Returned to ER overnight for increased right-sided pain with deep inspiration over the past 24 or so hours. Leukocytosis of 23 with slight troponin release. CT revealed pelvic abscess; which wasn't unexpected due to her ruptured appendix. Takes a good 7-10 days for an abscess to form in these situations, so wouldn't have likely been seen on her first admission. Otherwise today feeling OK. Wants to eat. At home was eating, no issues with bowels. Still with right sided pressure. - Constitutional Constitutional: Reports as per HPI - Cardiovascular Cardiovascular: Reports as per HPI - Respiratory Respiratory: Reports as per HPI - Gastrointestinal Gastrointestinal: Reports as per HPI - Musculoskeletal Musculoskeletal: Reports as per HPI - Integumentary Integumentary: Reports as per HPI - Neurological Neurological: Reports as per HPI - Psychiatric Psychiatric: Reports as per HPI - Endocrine Endocrine: Reports as per HPI - Hematologic/Lymphatic Hematologic/Lymphatic: Reports as per HPI - Allergic/Immunologic Allergic/Immunologic: Reports as per HPI Past Medical History Past Medical History: Hypertension Additional Past Medical History / Comment(s): back pain History of Any Multi-Drug Resistant Organisms: None Reported Past Surgical History: Appendectomy, Orthopedic Surgery Additional Past Surgical History / Comment(s): ectopic Past Anesthesia/Blood Transfusion Reactions: No Reported Reaction Past Psychological History: No Psychological Hx Reported Smoking Status: Current every day smoker Past Alcohol Use History: None Reported Past Drug Use History: None Reported Medications and Allergies Home Medications Medication Instructions Recorded Confirmed Type HYDROcodone/APAP 7.5-325MG [[place] 1 tab PO QID 05/11/23 05/21/23 History 7.5-325] Lisinopril-Hctz 20-12.5 mg 1 tab PO DAILY 05/11/23 05/21/23 History [Zestoretic 20-12.5] Naproxen [Naprosyn] 500 mg PO BID 05/11/23 05/21/23 History Amoxic-Pot Clav 875-125Mg 1 tab PO BID #14 tab 05/15/23 05/21/23 Rx [Augmentin 875-125] Allergies Allergy/AdvReac Type Severity Reaction Status Date / Time No Known Allergies Allergy Verified 05/21/23 07:07 Surgical - Exam Vital Signs Temp Pulse Resp BP Pulse Ox 98.7 F 88 18 107/71 97 05/20/23 22:22 05/20/23 22:22 05/20/23 22:22 05/20/23 22:22 05/20/23 22:22 - General well developed, well nourished, no distress, no pain, no cachectic, no obese - Eyes no icteric - ENT normal mucosa, no hearing loss - Neck supple - Respiratory normal expansion, normal respiratory effort - Cardiovascular Rhythm: regular - Abdomen minimal tenderness to palpation without signs of peritonitis; incisions healing well & without signs of infection; fullness to right side where appendix had bee n adherent to but no tenderness Abdomen: soft, surgical scars, no guarding, no rigid, no rebound, no distended - Integumentary warm & dry, no diaphoresis; some ecchymosis on abdominal wall from surgery - Neurologic no gross deficits - Musculoskeletal no LE edema - Psychiatric cooperative, normal affect oriented to time, oriented to person, oriented to place Results - Labs 05/20/23 22:39 05/20/23 22:39 Abnormal Lab Results - Last 24 Hours (Table) 05/20/23 05/20/23 05/20/23 Range/Units 22:39 22:39 22:39 WBC 23.3 H (3.8-10.6) k/uL RBC 3.35 L (3.80-5.40) m/uL Hgb 9.7 L (11.4-16.0) gm/dL Hct 31.6 L (34.0-46.0) % MCHC 30.9 L (31.0-37.0) g/dL Plt Count 866 H (150-450) k/uL Neutrophils # 19.3 H (1.3-7.7) k/uL PT 12.3 H (9.0-12.0) sec INR 1.2 H (<1.2) D-Dimer 3.75 H (<0.60) mg/L FEU Sodium 134 L (137-145) mmol/L Potassium 3.2 L (3.5-5.1) mmol/L Creatinine 0.44 L (0.52-1.04) mg/dL Glucose 114 H (74-99) mg/dL AST 59 H (14-36) U/L ALT 96 H (4-34) U/L Alkaline Phosphatase 187 H (38-126) U/L Troponin I (0.000-0.034) ng/mL Albumin 3.1 L (3.5-5.0) g/dL Ur Specific [place] (1.001-1.035) Urine Protein (Negative) Urine WBC (0-5) /hpf Amorphous Sediment (None) /hpf Hyaline Casts (0-2) /lpf Urine Mucus (None) /hpf 05/20/23 05/21/23 05/21/23 Range/Units 22:39 00:24 01:34 WBC (3.8-10.6) k/uL RBC (3.80-5.40) m/uL Hgb (11.4-16.0) gm/dL Hct (34.0-46.0) % MCHC (31.0-37.0) g/dL Plt Count (150-450) k/uL Neutrophils # (1.3-7.7) k/uL PT (9.0-12.0) sec INR (<1.2) D-Dimer (<0.60) mg/L FEU Sodium (137-145) mmol/L Potassium (3.5-5.1) mmol/L Creatinine (0.52-1.04) mg/dL Glucose (74-99) mg/dL AST (14-36) U/L ALT (4-34) U/L Alkaline Phosphatase (38-126) U/L Troponin I 0.049 H* 0.047 H* (0.000-0.034) ng/mL Albumin (3.5-5.0) g/dL Ur Specific [place] >1.050 H (1.001-1.035) Urine Protein 1+ H (Negative) Urine WBC 14 H (0-5) /hpf Amorphous Sediment Rare H (None) /hpf Hyaline Casts 20 H (0-2) /lpf Urine Mucus Few H (None) /hpf 05/21/23 Range/Units 04:24 WBC (3.8-10.6) k/uL RBC (3.80-5.40) m/uL Hgb (11.4-16.0) gm/dL Hct (34.0-46.0) % MCHC (31.0-37.0) g/dL Plt Count (150-450) k/uL Neutrophils # (1.3-7.7) k/uL PT (9.0-12.0) sec INR (<1.2) D-Dimer (<0.60) mg/L FEU Sodium (137-145) mmol/L Potassium (3.5-5.1) mmol/L Creatinine (0.52-1.04) mg/dL Glucose (74-99) mg/dL AST (14-36) U/L ALT (4-34) U/L Alkaline Phosphatase (38-126) U/L Troponin I 0.042 H* (0.000-0.034) ng/mL Albumin (3.5-5.0) g/dL Ur Specific [place] (1.001-1.035) Urine Protein (Negative) Urine WBC (0-5) /hpf Amorphous Sediment (None) /hpf Hyaline Casts (0-2) /lpf Urine Mucus (None) /hpf Diabetes panel 05/20/23 Range/Units 22:39 Sodium 134 L (137-145) mmol/L Potassium 3.2 L (3.5-5.1) mmol/L Chloride 102 (98-107) mmol/L Carbon Dioxide 23 (22-30) mmol/L BUN 14 (7-17) mg/dL Creatinine 0.44 L (0.52-1.04) mg/dL Glucose 114 H (74-99) mg/dL Calcium 8.6 (8.4-10.2) mg/dL AST 59 H (14-36) U/L ALT 96 H (4-34) U/L Alkaline Phosphatase 187 H (38-126) U/L Total Protein 6.4 (6.3-8.2) g/dL Albumin 3.1 L (3.5-5.0) g/dL Calcium panel 05/20/23 Range/Units 22:39 Calcium 8.6 (8.4-10.2) mg/dL Albumin 3.1 L (3.5-5.0) g/dL Pituitary panel 05/20/23 Range/Units 22:39 Sodium 134 L (137-145) mmol/L Potassium 3.2 L (3.5-5.1) mmol/L Chloride 102 (98-107) mmol/L Carbon Dioxide 23 (22-30) mmol/L BUN 14 (7-17) mg/dL Creatinine 0.44 L (0.52-1.04) mg/dL Glucose 114 H (74-99) mg/dL Calcium 8.6 (8.4-10.2) mg/dL Adrenal panel 05/20/23 Range/Units 22:39 Sodium 134 L (137-145) mmol/L Potassium 3.2 L (3.5-5.1) mmol/L Chloride 102 (98-107) mmol/L Carbon Dioxide 23 (22-30) mmol/L BUN 14 (7-17) mg/dL Creatinine 0.44 L (0.52-1.04) mg/dL Glucose 114 H (74-99) mg/dL Calcium 8.6 (8.4-10.2) mg/dL Total Bilirubin 0.3 (0.2-1.3) mg/dL AST 59 H (14-36) U/L ALT 96 H (4-34) U/L Alkaline Phosphatase 187 H (38-126) U/L Total Protein 6.4 (6.3-8.2) g/dL Albumin 3.1 L (3.5-5.0) g/dL - Imaging Chest x-ray: report reviewed, image reviewed CT scan - abdomen: report reviewed, image reviewed CT scan - chest: report reviewed, image reviewed Assessment and Plan Assessment: pelvic abscess, not unexpected (higher risk due to feculent appendicitis, and often takes 7-10 days to mature & present itself) s/p laparoscopic appendectomy 7/2 for ruptured feculent appendicitis leukocytosis, 2/2 to above atelectasis thrombocytosis, reactive to abscess Plan: trend labs continue IVF, abx NPO x few ice chips OK until midnight incentive spirometer, pulmonary toilette standard of care is IR drain & cultures - will consult IR if not already consulted
--- NOTE | 2023-05-21 13:39 | HP ---
HISTORY AND PHYSICAL CHIEF COMPLAINTS: Shortness of breath and abdominal pain. HISTORY OF PRESENT ILLNESS: This is a 62-year-old woman with past medical history of recent abdominal surgery involving appendix perforation and sepsis, was complaining of abdominal pain which is on deep inspiration. The patient came to [facility]. Patient has history of shortness of breath also. Chest CTA was done which I personally reviewed, showed no evidence of pulmonary embolism and small right pleural effusion and atelectasis was noted. A CT abdomen and pelvis which I reviewed personally again showed 7 x 4.8 x 5.7 fluid collection, possibly abscess. The patient started on broad spectrum IV antibiotics. Infectious Disease surgery consultation obtained. Patient was admitted for further evaluation and treatment. There is no history of any fever, rigors, or chills. PAST MEDICAL HISTORY: Reviewed include recent abdominal surgery with sepsis and rest of the history and rest of the chart is also reviewed. HOME MEDICATIONS: Augmentin b.i.d., rest of the dose and rest of the medications are noted. ALLERGIES: None. FAMILY HISTORY: No history of heart disease or strokes in the family. SOCIAL HISTORY: Continued smoking. REVIEW OF SYSTEMS: A 14-point review is negative except as mentioned earlier. PHYSICAL EXAMINATION: VITAL SIGNS: Pulse 86, blood pressure 130/26, respirations 17. HEENT: Conjunctivae normal. NECK: No jugular venous distention. CARDIOVASCULAR: S1, S2 muffled. RESPIRATIONS: Few scattered rhonchi. ABDOMEN: Soft, mild diffuse discomfort. No guarding, no rigidity. No masses palpable. No guarding. Bowel sounds diminished. LEGS: No edema, no swelling. NERVOUS SYSTEM: No focal deficit. LABORATORY DATA: Reviewed, WBC 23.3. ASSESSMENT: 1. Possible abdominal abscess with sepsis present on admission. 2. Increased WBC. 3. Atelectasis. 4. Hyponatremia. 5. Hypokalemia. 6. Troponin 0.049, indeterminate, rule out acute non-STEMI myocardial infarction. 7. Hypertension. 8. History of back pain. 9. History of nicotine dependence. 10.Right lower lobe atelectasis. RECOMMENDATIONS AND DISCUSSION: This 62-year-old woman presented with multiple complex medical issues, we will monitor the patient closely. I will recommend to continue current medications, continue broad- spectrum IV antibiotics initiated, Cindysyn, danita. Infectious disease evaluation. Follow the cultures. Surgical evaluation. Bronchodilators. See orders for details. Further recommendations to follow. MMODL / IJN: [id number] /
[2023-05-21] MEDS: PANTOPRAZOLE 40 MG/10 ML VIAL IVP SCH ×2 (14:08→21:25)
[2023-05-21] MEDS ORDERED: VANCOMYCIN 1,250 MG in SODIUM CHLORIDE 0.9% 250 ML IVPB SCH (15:00)
[2023-05-21] MEDS: IPRATROPIUM-ALBUTEROL 3 ML NEB INHALATION SCH ×2 (15:21→21:00)
[2023-05-21] MEDS: HYDROmorphone 0.5 MG/0.5 ML SYRINGE IVP PRN ×2 (16:48→19:46)
[2023-05-21] MEDS: PIPERACILLIN-TAZOBACTAM 3.375 GM in SODIUM CHLORIDE 0.9% 100 ML IVPB SCH (16:49)
[2023-05-21] MEDS: POTASSIUM CHLORIDE 10 MEQ in WATER FOR INJECTION 1 100ML.BAG IVPB SCH ×4 (17:52→22:31)
[2023-05-21] MEDS: VANCOMYCIN 1,250 MG in SODIUM CHLORIDE 0.9% 250 ML IVPB SCH (19:54)
[2023-05-21] MEDS: LACTATED RINGERS 1,000 ML IV SCH (20:06)
[2023-05-21] MEDS: HEPARIN SODIUM,PORCINE/PF 5,000 UNIT/0.5 ML SYRINGE SQ SCH (21:25)
[2023-05-22] MEDS: PIPERACILLIN-TAZOBACTAM 3.375 GM in SODIUM CHLORIDE 0.9% 100 ML IVPB SCH ×4 (00:33→23:24)
[2023-05-22] MEDS: LACTATED RINGERS 1,000 ML IV SCH ×2 (01:57→16:15)
[2023-05-22] MEDS: HYDROmorphone 0.5 MG/0.5 ML SYRINGE IVP PRN ×5 (02:55→20:25)
[2023-05-22 05:06] LABS: INR 1.2 (<1.2); Prothrombin Time 12.7 sec (9.0-12.0)
[2023-05-22] MEDS: VANCOMYCIN 1,250 MG in SODIUM CHLORIDE 0.9% 250 ML IVPB SCH ×2 (06:03→19:30)
--- NOTE | 2023-05-22 08:46 | CT ---
EXAMINATION TYPE: CT guided abscess drainage DATE OF EXAM: 05/21/2023 COMPARISON: 05/20/2020 HISTORY: Abdominal abscess with drainage tube insertion. CT DLP: 2226 mGycm The procedure is discussed with the patient, the risks, complications, benefits and alternatives, wer e discussed and any questions were answered. Informed consent was obtained. The patient is placed p darlyn on the CT table, prepped and draped in the usual sterile fashion. Utilizing a 22-gauge [place] needle access into presacral abscess collection was achieved with passage of an old finding 1 8 guidewire. There is conversion to 0.035 system, serial dilation [address] acement of an 8 [place] drainage catheter. Samples obtained and sent to pathology for analysis. Repeat imaging demonstrated ideal placement drainage.. All elements of maximal barrier and sterile techniq ue were utilized. The patient remained stable throughout the procedure with no immediate postprocedu ral complication. IMPRESSION: 1. Successful CT guided abscess drainage catheter insertion.
[2023-05-22] MEDS: IPRATROPIUM-ALBUTEROL 3 ML NEB INHALATION SCH ×4 (08:51→22:13)
[2023-05-22] MEDS: HEPARIN SODIUM,PORCINE/PF 5,000 UNIT/0.5 ML SYRINGE SQ SCH ×2 (09:01→20:19)
[2023-05-22] MEDS: PANTOPRAZOLE 40 MG/10 ML VIAL IVP SCH ×2 (09:02→20:18)
[2023-05-22] MEDS: NICOTINE 14MG/24HR PATCH TRANSDERM SCH (09:03)
[2023-05-22 09:08] LABS: ALT 57 U/L (8-44); AST 36 U/L (13-35); Albumin 2.6 d/dL (3.8-4.9); Alkaline Phosphatase 145 U/L (41-126); Blood Urea Nitrogen 8.4 mg/dL (9.0-27.0); Calcium 8.5 mg/dL (8.7-10.3); Carbon Dioxide 22.4 mmol/L (21.6-31.8); Chloride 104 mmol/L (96-109); Globulin 2.9 d/dL (1.6-3.3); Glucose 98 mg/dL (70-110); Magnesium 1.8 mg/dL (1.5-2.4); Phosphorus 2.7 mg/dL (2.4-5.1); Sodium 136 mmol/L (135-145); Total Bilirubin 0.3 mg/dL (0.3-1.2); Total Protein 5.5 d/dL (6.2-8.2)
[2023-05-22 09:30] LABS: Basophils # (A) 0.05 X 10*3/uL (0.00-0.10); Basophils % (A) 0.3 %; Eosinophils # (A) 0.04 X 10*3/uL (0.04-0.35); Eosinophils % (A) 0.2 %; HCT 26.1 % (37.2-46.3); HGB 8.2 d/dL (12.0-15.0); Lymphocytes # (A) 1.84 X 10*3/uL (0.90-5.00); Lymphocytes % (A) 9.3 %; MCH 29.7 pg (27.0-32.0); MCHC 31.4 d/dL (32.0-37.0); MCV 94.6 FL (80.0-97.0); Mean Platelet Volume 10.1 FL (9.5-12.2); Monocytes # (A) 1.26 X 10*3/uL (0.20-1.00); Monocytes % (A) 6.4 %; NRBC Per 100 WBC 0 X 10*3/uL (0.00-0.01); Neutrophils # (A) 16.38 X 10*3/uL (1.80-7.70); Neutrophils % (A) 82.5 %; Platelet Count 891 X 10*3/uL (140-440); RBC 2.76 X 10*6/uL (4.10-5.20); RDW 16.1 % (11.5-14.5); WBC 19.83 X 10*3/uL (4.50-10.00)
--- NOTE | 2023-05-22 13:49 | P.CRDCN ---
History of Present Illness Consult date: 05/22/23 History of present illness: History of present illness: This is a 63-year-old female patient with past medical history of hypertension. We have been asked to evaluate the patient for elevated troponins. Patient developed abdominal pain always ago and a CAT scan was concerning for acute appendicitis. Patient underwent a laparoscopic appendectomy on 05/11 for ruptured appendix with feculent peritonitis. Patient returned to the emergency center due to right-sided abdominal pain. She has subsequently undergone a successful CT-guided abscess drainage. She denies having any chest pain. She has no previous cardiac history. EKG sinus rhythm. CTA of the chest no pulmonary embolism. Small right pleural effusion, right lower lobe partial atelectasis. WBC initially 23.3 with repeated 19.8. Hemoglobin 8.2, platelet count 891. INR 1.2. D-dimer 3.75. Electrolytes normal. BUN 8 and creatinine 0.4. Troponin 0.049, 0.047, 0.042. AST 36, ALT 57, alkaline phosphatase 145. ProBNP 269. Lactic acid 0.9. Home cardiac medications: Lisinopril/hydrochlorothiazide 2011 0.5 mg 1 daily Review Of Systems: At the time of my evaluation: Constitutional: No fever, no chills. No weakness, fatigue or lethargy. EENT: No headache. No dizziness. Lungs: No shortness of breath, cough, no sputum production. No wheezing. Cardiovascular: No chest pain, no lower extremity edema. No palpitations. No paroxysmal nocturnal dyspnea. No orthopnea. No lightheadedness or dizziness. No syncopal episodes. Abdominal: Reports abdominal pain. No nausea, vomiting. No diarrhea. No constipation. No bloody or tarry stools. Genitourinary: No dysuria.. No urinary retention. Musculoskeletal: No myalgias. No muscle weakness, no frequent falls. No back pain. No neck pain. Integumentary: No wounds. No rash. No unusual bruising. Neurologic: No aphasia. No facial droop. No change in mentation. No head injury. No headache. Physical examination: Gen: This is a 63-year-old female. No acute distress. VS: reviewed HEENT: Head is atraumatic, normocephalic. Pupils equal, round. Sclerae is anicteric. NECK: Supple. No JVD. LUNGS: Clear to auscultation. No wheezes or rhonchi. No intercostal retractions. HEART: Regular rate and rhythm. No murmur. ABDOMEN: Soft EXTREMITIES: No pedal edema. No calf tenderness. NEUROLOGICAL: Patient is awake, alert and oriented x3. Assessment: Elevated troponin secondary to systemic illness Status post recent laparoscopic appendectomy Abscess formation Plan: Obtain 2-D echocardiogram and Doppler study to assess cardiac structure and function If patient has normal LV function and wall motion, cardiology will sign off and follow on an as-needed basis. Thank you kindly for this consultation. Nurse practitioner note has been reviewed, I agree with documented findings and plan of care. Patient was seen and examined. Past Medical History Past Medical History: Hypertension Additional Past Medical History / Comment(s): back pain History of Any Multi-Drug Resistant Organisms: None Reported Past Surgical History: Appendectomy, Orthopedic Surgery Additional Past Surgical History / Comment(s): ectopic Past Anesthesia/Blood Transfusion Reactions: No Reported Reaction Smoking Status: Current every day smoker Medications and Allergies Home Medications Medication Instructions Recorded Confirmed Type HYDROcodone/APAP 7.5-325MG [[place] 1 tab PO QID 05/11/23 05/21/23 History 7.5-325] Lisinopril-Hctz 20-12.5 mg 1 tab PO DAILY 05/11/23 05/21/23 History [Zestoretic 20-12.5] Naproxen [Naprosyn] 500 mg PO BID 05/11/23 05/21/23 History Amoxic-Pot Clav 875-125Mg 1 tab PO BID #14 tab 05/15/23 05/21/23 Rx [Augmentin 875-125] Allergies Allergy/AdvReac Type Severity Reaction Status Date / Time No Known Allergies Allergy Verified 05/21/23 07:07 Physical Exam Vitals: Vital Signs Temp Pulse Pulse Resp BP Pulse Ox FiO2 05/22/23 13:01 88 05/22/23 12:48 88 05/22/23 09:00 90 05/22/23 08:51 90 94 L 21 05/22/23 07:00 98.3 F 83 17 155/78 93 L 05/22/23 00:49 97.7 F 88 19 152/80 93 L 05/21/23 21:08 92 05/21/23 21:00 84 05/21/23 19:40 98.4 F 86 19 144/75 95 05/21/23 15:51 98.5 F 89 17 121/81 96 05/21/23 15:40 86 18 133/75 99 05/21/23 15:25 90 18 139/78 98 05/21/23 15:09 88 18 146/77 98 05/21/23 14:00 89 17 Intake and Output 05/21/23 05/22/23 05/22/23 22:59 06:59 14:59 Intake Total 1846 Output Total 20 Balance 1826 Intake: Intake, IV Titration 1846 Amount Lactated Ringers 1,000 ml 996 @ 83 mls/hr IV .Q12H3M [facility] Rx#:[id number] Piperacillin-Tazobactam 3 200 .375 gm In Sodium Chloride 0.9% 100 ml @ 25 mls/hr IVPB Q8HR [facility] Rx# :[id number] Potassium Chloride 10 meq 400 In Water For Injection 1 100ml.bag @ 100 mls/hr IVPB Q1HR [facility] Rx#: [id number] Vancomycin 1,250 mg In 250 Sodium Chloride 0.9% 250 ml @ 125 mls/hr IVPB Q12H [facility] Rx#:[id number] Output: Drainage 20 Bilateral Buttock 20 Other: Voiding Method Toilet # Voids 2 Weight 66.678 kg 69.1 kg Results 05/22/23 04:23 05/22/23 04:23 Cardiac Enzymes 05/22/23 Range/Units 04:23 AST 36 H (13-35) U/L Coagulation 05/22/23 Range/Units 04:23 PT 12.7 H (9.0-12.0) sec CBC 05/22/23 Range/Units 04:23 WBC 19.83 H (4.50-10.00) X 10*3/uL RBC 2.76 L (4.10-5.20) X 10*6/uL Hgb 8.2 L (12.0-15.0) d/dL Hct 26.1 L (37.2-46.3) % Plt Count 891 H (140-440) X 10*3/uL Comprehensive Metabolic Panel 05/22/23 Range/Units 04:23 Sodium 136 (135-145) mmol/L Potassium 4.0 (3.5-5.5) mmol/L Chloride 104 (96-109) mmol/L Carbon Dioxide 22.4 (21.6-31.8) mmol/L BUN 8.4 L (9.0-27.0) mg/dL Creatinine 0.4 L (0.6-1.5) mg/dL Glucose 98 (70-110) mg/dL Calcium 8.5 L (8.7-10.3) mg/dL AST 36 H (13-35) U/L ALT 57 H (8-44) U/L Alkaline Phosphatase 145 H (41-126) U/L Total Protein 5.5 L (6.2-8.2) d/dL Albumin 2.6 L (3.8-4.9) d/dL Current Medications Generic Name Dose Route Start Last Admin Trade Name Freq PRN Reason Stop Dose Admin Acetaminophen 650 mg 05/21/23 01:02 Acetaminophen Tab 325 Mg Tab PO Q6HR PRN Mild Pain or Fever > 100.5 Hydrocodone Bitart/Acetaminophen 1 each 05/21/23 12:10 Hydrocodone/Apap 5-325mg 1 Each Tab PO Q6HR PRN Pain Albuterol/Ipratropium 3 ml 05/21/23 16:00 05/22/23 12:47 Ipratropium-Albuterol 3 Ml Neb INHALATION 3 ml RT-QID [facility] Administration Albuterol/Ipratropium 3 ml 05/21/23 12:10 Ipratropium-Albuterol 3 Ml Neb INHALATION RT-QID PRN Shortness Of Breath Or Wheezing Heparin Sodium (Porcine) 5,000 unit 05/21/23 21:00 05/22/23 09:01 Heparin Sodium,Porcine/Pf 5,000 Unit/0.5 Ml Syringe SQ 5,000 unit Q12HR [facility] Administration Hydromorphone HCl 0.5 mg 05/21/23 12:10 05/22/23 12:32 Hydromorphone 0.5 Mg/0.5 Ml Syringe IVP 0.5 mg Q3HR PRN Administration Severe Pain (Scale 7 to 10) Piperacillin Sod/Tazobactam 100 mls @ 25 mls/hr 05/21/23 16:00 05/22/23 09:02 Sod 3.375 gm/ Sodium Chloride IVPB 25 mls/hr Q8HR [facility] Administration Protocol Lactated Ringer's 1,000 mls @ 83 mls/hr 05/21/23 13:30 05/22/23 01:57 Lactated Ringers IV Not Given .Q12H3M [facility] Vancomycin HCl 1,250 mg/ 250 mls @ 125 mls/hr 05/21/23 18:00 05/22/23 06:03 Sodium Chloride IVPB 125 mls/hr Q12H [facility] Administration Miscellaneous Information 1 each 05/21/23 12:29 Potassium Replacement Protocol 1 Each Misc MISCELLANE DAILY PRN Per Protocol Protocol Miscellaneous Information 0 each 05/23/23 17:00 Vancomycin Trough Due 1 Each Misc MISCELLANE 05/23/23 17:01 DIRECTED ONE Naloxone HCl 0.2 mg 05/21/23 01:02 Naloxone 0.4 Mg/Ml 1 Ml Vial IV Q2M PRN Opioid Reversal Nicotine 1 patch 05/22/23 09:00 05/22/23 09:03 Nicotine 14mg/24hr Patch TRANSDERM Not Given DAILY [facility] Ondansetron HCl 4 mg 05/21/23 01:02 Ondansetron 4 Mg/2 Ml Vial IVP Q8HR PRN Nausea And Vomiting Pantoprazole Sodium 40 mg 05/21/23 12:15 05/22/23 09:02 Pantoprazole 40 Mg/10 Ml Vial IVP 40 mg BID [facility] Administration Intake and Output 05/21/23 05/22/23 05/22/23 22:59 06:59 14:59 Intake Total 1846 Output Total 20 Balance 1826 Intake: Intake, IV Titration 1846 Amount Lactated Ringers 1,000 ml 996 @ 83 mls/hr IV .Q12H3M [facility] Rx#:[id number] Piperacillin-Tazobactam 3 200 .375 gm In Sodium Chloride 0.9% 100 ml @ 25 mls/hr IVPB Q8HR [facility] Rx# :[id number] Potassium Chloride 10 meq 400 In Water For Injection 1 100ml.bag @ 100 mls/hr IVPB Q1HR [facility] Rx#: [id number] Vancomycin 1,250 mg In 250 Sodium Chloride 0.9% 250 ml @ 125 mls/hr IVPB Q12H [facility] Rx#:[id number] Output: Drainage 20 Bilateral Buttock 20 Other: Voiding Method Toilet # Voids 2 Weight 66.678 kg 69.1 kg 05/22/23 04:23 05/22/23 04:23
[2023-05-22] MEDS: metroNIDAZOLE-NS PMX 500 MG in SALINE 1 100ML.BAG IVPB SCH ×2 (16:14→23:23)
--- NOTE | 2023-05-22 21:19 | P.PN ---
Subjective Progress Note Date: 05/22/23 Principal diagnosis: pelvic abscess on CT s/p laparoscopic appendectomy 62F initially presented to the ER with complaints of right lower quadrant abdominal pain for the past week. Was found to have a CT concerning for acute appendicitis with no associated abscess. Underwent laparoscopic appendectomy on 05/11; noted to have a ruptured appendix with feculuent peritonitis. Post opera tively did well. Eager to go home as was tolerating PO diet, passing flatus; pain well controlled with PO analgesia. Discussed at that time she was higher risk for abscess development due to feculent peritonitis; symptoms to prompt return visit to ER discussed & was sent home with PO antibiotics after 3 days of inpatient IV antibiotics. Returned to ER overnight for increased right-sided pain with deep inspiration over the past 24 or so hours. Leukocytosis of 23 with slight troponin release. CT revealed pelvic abscess; which wasn't unexpected due to her ruptured appendix. Takes a good 7-10 days for an abscess to form in these situations, so wouldn't have likely been seen on her first admission. Underwent successful IR drain placement 05/21. Overall doing better. Still with pain but much improved than on admission. Drain is functional; purulent drainage. Leukocytosis down-trending. No tachycardia, afebrile. Tolerating diet, not much of appetite. Objective - Vital Signs Vital signs: Vital Signs Temp 99.3 F 05/22/23 13:41 Pulse 82 05/22/23 13:41 Resp 17 05/22/23 13:41 BP 122/72 05/22/23 13:41 Pulse Ox 93 L 05/22/23 13:41 FiO2 21 05/22/23 08:51 Intake & Output 05/21/23 05/22/23 05/22/23 18:59 06:59 18:59 Intake Total 1846 Output Total 20 Balance 1826 Weight 66.678 kg 69.1 kg Intake: Intake, IV Titration 1846 Amount Lactated Ringers 1,000 ml 996 @ 83 mls/hr IV .Q12H3M [facility] Rx#:[id number] Piperacillin-Tazobactam 3 200 .375 gm In Sodium Chloride 0.9% 100 ml @ 25 mls/hr IVPB Q8HR [facility] Rx# :[id number] Potassium Chloride 10 meq 400 In Water For Injection 1 100ml.bag @ 100 mls/hr IVPB Q1HR [facility] Rx#: [id number] Vancomycin 1,250 mg In 250 Sodium Chloride 0.9% 250 ml @ 125 mls/hr IVPB Q12H [facility] Rx#:[id number] Output: Drainage 20 Bilateral Buttock 20 Other: Voiding Method Toilet # Voids 2 2 2 - Constitutional General appearance: Present: cooperative, no acute distress - EENT Eyes: Present: anicteric sclerae ENT: Present: hearing grossly normal - Neck Details: supple - Respiratory Details: non labored, normal effort - Cardiovascular Rhythm: regular - Gastrointestinal Gastrointestinal Comment(s): incisions healing well & without signs of infection General gastrointestinal: Present: soft, tenderness (slight tenderness over right side but no signs of peritonitis). Absent: distended, rigid, scaphoid - Integumentary Integumentary Comment(s): warm & dry, no diaphoresis - Neurologic Neurologic Comment(s): no gross deficits - Musculoskeletal Musculoskeletal Comment(s): no LE edema - Psychiatric Psychiatric Comment(s): cooperative, normal affect - Labs CBC & Chem 7: 05/22/23 04:23 05/22/23 04:23 Labs: Abnormal Lab Results - Last 24 Hours (Table) 05/22/23 05/22/23 05/22/23 Range/Units 04:23 04:23 04:23 WBC 19.83 H (4.50-10.00) X 10*3/uL RBC 2.76 L (4.10-5.20) X 10*6/uL Hgb 8.2 L (12.0-15.0) d/dL Hct 26.1 L (37.2-46.3) % MCHC 31.4 L (32.0-37.0) d/dL RDW 16.1 H (11.5-14.5) % Plt Count 891 H (140-440) X 10*3/uL Neutrophils # 16.38 H (1.80-7.70) X 10*3/uL Monocytes # 1.26 H (0.20-1.00) X 10*3/uL PT 12.7 H (9.0-12.0) sec INR 1.2 H (<1.2) BUN 8.4 L (9.0-27.0) mg/dL Creatinine 0.4 L (0.6-1.5) mg/dL BUN/Creatinine Ratio 21.00 H (12.00-20.00) Ratio Calcium 8.5 L (8.7-10.3) mg/dL AST 36 H (13-35) U/L ALT 57 H (8-44) U/L Alkaline Phosphatase 145 H (41-126) U/L Total Protein 5.5 L (6.2-8.2) d/dL Albumin 2.6 L (3.8-4.9) d/dL Albumin/Globulin Ratio 0.90 L (1.60-3.17) Ratio Microbiology - Last 24 Hours (Table) 05/21/23 00:24 Blood Culture - Preliminary Blood 05/21/23 00:24 Blood Culture - Preliminary Blood Assessment and Plan Assessment: pelvic abscess, not unexpected (higher risk due to feculent appendicitis, and often takes 7-10 days to mature & present itself) s/p IR drainage 05/21 s/p laparoscopic appendectomy 05/11 for ruptured feculent appendicitis leukocytosis, 2/2 to above- improving atelectasis thrombocytosis, reactive to abscess Plan: trend labs continue IVF, abx OK for diet incentive spirometer, pulmonary toilette IR drain care, await cultures if PLT>1000, will add ASA 81 mg Time with Patient: Less than 30
[2023-05-22] MEDS: DOCUSATE 100 MG CAP PO SCH (23:08)
[2023-05-22] MEDS: HYDROcodone/APAP 5-325MG 1 EACH TAB PO PRN (23:32)
[2023-05-23] MEDS: LACTATED RINGERS 1,000 ML IV SCH ×3 (04:40→21:12)
[2023-05-23] MEDS: HYDROmorphone 0.5 MG/0.5 ML SYRINGE IVP PRN ×3 (06:00→21:10)
[2023-05-23] MEDS: VANCOMYCIN 1,250 MG in SODIUM CHLORIDE 0.9% 250 ML IVPB SCH ×2 (06:01→18:52)
--- NOTE | 2023-05-23 06:51 | PN ---
PROGRESS NOTE DATE OF SERVICE: 05/22/2023 SUBJECTIVE: This is a 63-year-old woman who was admitted with possible abdominal abscess aspiration. The discharge is foul-smelling according to the patient. Patient on broad- spectrum IV antibiotics. Multiple consultants following the patient closely. PAST MEDICAL HISTORY: Reviewed. REVIEW OF SYSTEMS: A 14-point review is negative except as mentioned earlier. CURRENT MEDICATIONS: Reviewed, Zosyn and rest of medication noted. PHYSICAL EXAMINATION: VITAL SIGNS: Pulse is 82, blood pressure 120/70, respirations 17. HEENT: Conjunctivae normal. NECK: No jugular venous distention. CARDIOVASCULAR: S1, S2. RESPIRATIONS: Diminished at the basis. ABDOMEN: Soft, minimal. There is diffuse distention. Mild diffuse discomfort. No guarding, no rigidity. No mass palpable. Bowel sounds present. LABORATORY DATA: Noted. ASSESSMENT: 1. Possible abdominal abscess postoperative with sepsis present on admission, status post intervention radiology paracentesis. 2. Increased WBC. 3. Atelectasis. 4. Hyponatremia. 5. Hypokalemia. 6. Troponin 0.049. Acute kel-FZ-maevgwg elevation unlikely per Cardiology. 7. Hypertension. 8. History of back pain. 9. Multiple medical issues. RECOMMENDATIONS AND DISCUSSION: This is a 63-year-old woman presented with multiple complex medical issues, we will monitor the patient closely. Continue the antibiotics continue the bronchodilators. Continue rest of medications. Closely follow with multiple consultants. Await culture reports. Add Flagyl to the current regimen. Guarded prognosis. Further recommendations to follow. MMODL / IJN: [id number] /
[2023-05-23] MEDS: PANTOPRAZOLE 40 MG/10 ML VIAL IVP SCH ×2 (08:33→21:10)
[2023-05-23] MEDS: HEPARIN SODIUM,PORCINE/PF 5,000 UNIT/0.5 ML SYRINGE SQ SCH ×2 (08:34→21:09)
[2023-05-23] MEDS: PIPERACILLIN-TAZOBACTAM 3.375 GM in SODIUM CHLORIDE 0.9% 100 ML IVPB SCH ×3 (08:34→23:06)
[2023-05-23] MEDS: metroNIDAZOLE-NS PMX 500 MG in SALINE 1 100ML.BAG IVPB SCH ×3 (08:35→23:08)
[2023-05-23] MEDS: DOCUSATE 100 MG CAP PO SCH ×2 (08:36→21:12)
[2023-05-23] MEDS: IPRATROPIUM-ALBUTEROL 3 ML NEB INHALATION SCH ×4 (08:46→21:02)
[2023-05-23] MEDS: HYDROcodone/APAP 5-325MG 1 EACH TAB PO PRN ×3 (08:48→23:05)
[2023-05-23] MEDS: NICOTINE 14MG/24HR PATCH TRANSDERM SCH (09:22)
[2023-05-23] MEDS ORDERED: LOSARTAN 25 MG TAB PO SCH (10:00)
--- NOTE | 2023-05-23 11:01 | CA ---
Transthoracic Echo Report Name: Rosaura Riggins Age: 63 Gender: F : 1960 Exam Date: 05/23/2023 09:18 Exam Location: [facility] Ht (in): 62 Wt (lb): 152 Ordering Physician: Malika Yuen Attending/Referring Phys: Interventional Nurse Rome Gallegos Procedure CPT: Indications: elev trops Cardiac Hx: Technical Quality: Fair Contrast 1: Total Dose (mL): Contrast 2: Total Dose (mL): MEASUREMENTS (Male / Female) Normal Values 2D ECHO LV Diastolic Diameter PLAX 4.5 cm 4.2 - 5.9 / 3.9 - 5.3 cm LV Systolic Diameter PLAX 2.9 cm IVS Diastolic Thickness 1.0 cm 0.6 - 1.0 / 0.6 - 0.9 cm LVPW Diastolic Thickness 1.2 cm 0.6 - 1.0 / 0.6 - 0.9 cm LV Relative Wall Thickness 0.5 RV Internal Dim ED PLAX 2.8 cm LVOT Diameter 2.2 cm Aortic Root Diameter 3.0 cm LA Systolic Diameter LX 3.0 cm 3.0 - 4.0 / 2.7 - 3.8 cm LV Diastolic Volume MOD BP 56.4 cm??? 67 - 155 / 56 - 104 cm??? LV Systolic Volume MOD BP 10.6 cm??? 22 - 58 / 19 - 49 cm??? LV Ejection Fraction MOD BP 81.1 % >= 55 % LV Diastolic Volume MOD 4C 46.4 cm??? LV Systolic Volume MOD 4C 9.6 cm??? LV Ejection Fraction MOD 4C 79.3 % LV Diastolic Length 4C 6.8 cm LV Systolic Length 4C 5.7 cm LV Diastolic Volume MOD 2C 63.8 cm??? LV Systolic Volume MOD 2C 12.1 cm??? LV Ejection Fraction MOD 2C 81.1 % LV Diastolic Length 2C 7.3 cm LV Systolic Length 2C 5.7 cm LA Volume 42.3 cm??? 18 - 58 / 22 - 52 cm??? Ascending Aorta Diameter 3.0 cm DOPPLER AV Peak Velocity 156.0 cm/s AV Peak Gradient 9.7 mmHg LVOT Peak Velocity 129.9 cm/s LVOT Peak Gradient 6.7 mmHg AV Area Cont Eq pk 3.1 cm??? MV Peak Velocity 132.9 cm/s MV Peak Gradient 7.1 mmHg MV Mean Velocity 64.6 cm/s MV Mean Gradient 2.2 mmHg MV Velocity Time Integral 42.3 cm Mitral E Point Velocity 127.4 cm/s Mitral A Point Velocity 86.9 cm/s Mitral E to A Ratio 1.5 MV Deceleration Time 244.1 ms MV E' Velocity 8.5 cm/s Mitral E to MV E' Ratio 14.9 TR Peak Velocity 158.9 cm/s TR Peak Gradient 10.1 mmHg Right Ventricular Systolic Press 15.1 mmHg PV Peak Velocity 115.4 cm/s PV Peak Gradient 5.3 mmHg FINDINGS Left Ventricle Normal LV size and wall thickness. Left ventricular ejection fraction is estimated at55-60 %. Right Ventricle Normal right ventricular size. Right Atrium Normal right atrial size. Left Atrium Normal left atrial size. Mitral Valve Structurally normal mitral valve. Aortic Valve Trileaflet aortic valve. No aortic valve stenosis or regurgitation. Tricuspid Valve Structurally normal tricuspid valve. Mild TR. Pulmonic Valve Pulmonic valve not well visualized. Trace PI. Pericardium Normal pericardium. Aorta Normal size aortic root and proximal ascending aorta. CONCLUSIONS Normal LV systolic function Previewed by: Kerwin Galloway MD Dr. Suresh Tumma MD (Electronically Signed) Final Date: 23 May 2023 11:00
[2023-05-23 11:03] LABS: HCT 26.2 % (37.2-46.3); HGB 8.1 d/dL (12.0-15.0); MCH 28.9 pg (27.0-32.0); MCHC 30.9 d/dL (32.0-37.0); MCV 93.6 FL (80.0-97.0); Mean Platelet Volume 10.3 FL (9.5-12.2); NRBC Per 100 WBC 0 X 10*3/uL (0.00-0.01); Platelet Count 979 X 10*3/uL (140-440); RDW 15.9 % (11.5-14.5); WBC 13.17 X 10*3/uL (4.50-10.00)
[2023-05-23 11:30] LABS: Blood Urea Nitrogen 6.8 mg/dL (9.0-27.0); Calcium 8.9 mg/dL (8.7-10.3); Carbon Dioxide 22.3 mmol/L (21.6-31.8); Chloride 105 mmol/L (96-109); Glucose 106 mg/dL (70-110); Magnesium 1.9 mg/dL (1.5-2.4); Potassium 3.9 mmol/L (3.5-5.5); Sodium 138 mmol/L (135-145)
--- NOTE | 2023-05-23 12:16 | P.PN ---
Subjective Progress Note Date: 05/23/23 History of present illness: This is a 63-year-old female patient with past medical history of hypertension. We have been asked to evaluate the patient for elevated troponins. Patient developed abdominal pain always ago and a CAT scan was concerning for acute appendicitis. Patient underwent a laparoscopic appendectomy on 05/11 for ruptured appendix with feculent peritonitis. Patient returned to the emergency center due to right-sided abdominal pain. She has subsequently undergone a successful CT-guided abscess drainage. She denies having any chest pain. She has no previous cardiac history. EKG sinus rhythm. CTA of the chest no pulmonary embolism. Small right pleural effusion, right lower lobe partial atelectasis. WBC initially 23.3 with repeated 19.8. Hemoglobin 8.2, platelet count 891. INR 1.2. D-dimer 3.75. Electrolytes normal. BUN 8 and creatinine 0.4. Troponin 0.049, 0.047, 0.042. AST 36, ALT 57, alkaline phosphatase 145. ProBNP 269. Lactic acid 0.9. Home cardiac medications: Lisinopril/hydrochlorothiazide 2012 0.5 mg 1 daily 05/23 Patient denies having any chest pain. She continues to have significant abdominal pain. Echocardiogram has been obtained which reveals normal LV function. Blood pressure this morning is 171/80, heart rate is in the 70s. Physical examination: Gen: This is a 63-year-old female. No acute distress. VS: reviewed HEENT: Head is atraumatic, normocephalic. Pupils equal, round. Sclerae is anicteric. NECK: Supple. No JVD. LUNGS: Clear to auscultation. No wheezes or rhonchi. No intercostal retractions. HEART: Regular rate and rhythm. No murmur. ABDOMEN: Soft EXTREMITIES: No pedal edema. No calf tenderness. NEUROLOGICAL: Patient is awake, alert and oriented x3. Assessment: Elevated troponin secondary to systemic illness Status post recent laparoscopic appendectomy Abscess formation Elevated blood pressure reading is most likely secondary to pain Plan: Start patient on losartan 12.5 mg daily Cardiology will sign off and follow on an as-needed basis. Thank you kindly for this consultation. Nurse practitioner note has been reviewed, I agree with documented findings and plan of care. Patient was seen and examined. Objective - Vital Signs Vital signs: Vital Signs Temp 98.4 F 05/23/23 07:03 Pulse 76 05/23/23 08:46 Resp 15 05/23/23 07:03 BP 171/80 05/23/23 07:03 Pulse Ox 96 05/23/23 07:03 FiO2 21 05/22/23 08:51 Intake & Output 05/22/23 05/23/23 05/23/23 18:59 06:59 18:59 Output Total 14 Balance -14 Weight 70.1 kg Output: Drainage 14 Bilateral Buttock 14 Other: Voiding Method Toilet # Voids 2 # Bowel Movements 1 - Labs CBC & Chem 7: 05/23/23 05:37 05/23/23 05:37 Labs: Abnormal Lab Results - Last 24 Hours (Table) 05/22/23 05/22/23 Range/Units 04:23 04:23 WBC 19.83 H (4.50-10.00) X 10*3/uL RBC 2.76 L (4.10-5.20) X 10*6/uL Hgb 8.2 L (12.0-15.0) d/dL Hct 26.1 L (37.2-46.3) % MCHC 31.4 L (32.0-37.0) d/dL RDW 16.1 H (11.5-14.5) % Plt Count 891 H (140-440) X 10*3/uL Neutrophils # 16.38 H (1.80-7.70) X 10*3/uL Monocytes # 1.26 H (0.20-1.00) X 10*3/uL BUN 8.4 L (9.0-27.0) mg/dL Creatinine 0.4 L (0.6-1.5) mg/dL BUN/Creatinine Ratio 21.00 H (12.00-20.00) Ratio Calcium 8.5 L (8.7-10.3) mg/dL AST 36 H (13-35) U/L ALT 57 H (8-44) U/L Alkaline Phosphatase 145 H (41-126) U/L Total Protein 5.5 L (6.2-8.2) d/dL Albumin 2.6 L (3.8-4.9) d/dL Albumin/Globulin Ratio 0.90 L (1.60-3.17) Ratio Microbiology - Last 24 Hours (Table) 05/21/23 00:24 Blood Culture - Preliminary Blood 05/21/23 00:24 Blood Culture - Preliminary Blood
--- NOTE | 2023-05-23 12:55 | P.PN ---
Subjective Progress Note Date: 05/23/23 Principal diagnosis: pelvic abscess on CT s/p laparoscopic appendectomy 62F initially presented to the ER with complaints of right lower quadrant abdominal pain for the past week. Was found to have a CT concerning for acute appendicitis with no associated abscess. Underwent laparoscopic appendectomy on 05/11; noted to have a ruptured appendix with feculuent peritonitis. Post opera tively did well. Eager to go home as was tolerating PO diet, passing flatus; pain well controlled with PO analgesia. Discussed at that time she was higher risk for abscess development due to feculent peritonitis; symptoms to prompt return visit to ER discussed & was sent home with PO antibiotics after 3 days of inpatient IV antibiotics. Returned to ER overnight for increased right-sided pain with deep inspiration over the past 24 or so hours. Leukocytosis of 23 with slight [address]onin release. CT revealed pelvic abscess; which wasn't unexpected due to her ruptured appendix. Takes a good 7-10 days for an abscess to form in these situations, so wouldn't have likely been seen on her first admission. Underwent successful IR drain placement 05/21. Continues to do well. Discomfort over drain site & still with pressure over right side of abdomen. But feels better compared to first admission & after drain has been placed. Leukocytosis down-trending & nearly normalized. Platelets still elevated. No tachycardia, afebrile. Tolerating diet, not much of appetite. Passing flatus; had two BMs. Echo completed & essentially negative. Cardiology started losartan. Blood cultures no growth. Abscess aspirate growing GNB. Drain with continued purulent output. BP has been slightly elevated; states she takes Lisinopril at home & hasn't received it at the hospital. Doesn't remember dose. Objective - Vital Signs Vital signs: Vital Signs Temp 98.4 F 05/23/23 07:03 Pulse 74 05/23/23 12:33 Resp 15 05/23/23 07:03 BP 171/80 05/23/23 07:03 Pulse Ox 97 05/23/23 08:49 FiO2 21 05/22/23 08:51 Intake & Output 05/22/23 05/23/23 05/23/23 18:59 06:59 18:59 Output Total 14 Balance -14 Weight 70.1 kg Output: Drainage 14 Bilateral Buttock 14 Other: Voiding Method Toilet # Voids 2 # Bowel Movements 1 - Constitutional General appearance: Present: cooperative, no acute distress - EENT Eyes: Present: anicteric sclerae ENT: Present: hearing grossly normal - Neck Details: supple - Respiratory Details: non labored, normal effort - Cardiovascular Rhythm: regular - Gastrointestinal Gastrointestinal Comment(s): minimal tenderness; incisions healing well; IR drain with purulent drainage General gastrointestinal: Present: soft. Absent: distended, rigid - Integumentary Integumentary Comment(s): warm & dry, no diaphoresis - Neurologic Neurologic Comment(s): no gross deficits - Musculoskeletal Musculoskeletal Comment(s): no LE edema - Psychiatric Psychiatric Comment(s): cooperative, normal affect - Labs CBC & Chem 7: 05/23/23 05:37 05/23/23 05:37 Labs: Abnormal Lab Results - Last 24 Hours (Table) 05/23/23 05/23/23 Range/Units 05:37 05:37 WBC 13.17 H (4.50-10.00) X 10*3/uL RBC 2.80 L (4.10-5.20) X 10*6/uL Hgb 8.1 L (12.0-15.0) d/dL Hct 26.2 L (37.2-46.3) % MCHC 30.9 L (32.0-37.0) d/dL RDW 15.9 H (11.5-14.5) % Plt Count 979 H (140-440) X 10*3/uL BUN 6.8 L (9.0-27.0) mg/dL Creatinine 0.4 L (0.6-1.5) mg/dL Microbiology - Last 24 Hours (Table) 05/21/23 15:30 Gram Stain - Preliminary Aspirate Body Fluid Culture - Preliminary Gram Neg Bacilli Gram Neg Bacilli#2 05/21/23 00:24 Blood Culture - Preliminary Blood 05/21/23 00:24 Blood Culture - Preliminary Blood Assessment and Plan Assessment: pelvic abscess, not unexpected (higher risk due to feculent appendicitis, and often takes 7-10 days to mature & present itself) s/p IR drainage 05/21 - cultures +GNB s/p laparoscopic appendectomy 05/11 for ruptured feculent appendicitis leukocytosis, 2/2 to above- improving atelectasis thrombocytosis, reactive to abscess hx HTN, on Lisinopril at home Plan: trend labs continue IVF, abx - saline lock IVF once tolerating adequate PO intake - await finalized cultures & sensitivities to narrow abx OK for diet incentive spirometer, pulmonary toilette encourage ambulation IR drain care - will need repeat CT prior to drain removal to ensure near-complete resolution of abscess if PLT>1000, will add ASA 81 mg RN to check with to determine home Lisinopril dose
[2023-05-23] MEDS ORDERED: VANCOMYCIN TROUGH DUE 1 EACH MISC MISCELLANE ONE (17:00)
[2023-05-23] MEDS: LISINOPRIL-HCTZ 20-12.5 MG 1 EACH TAB PO SCH (18:46)
--- NOTE | 2023-05-23 23:18 | PN ---
PROGRESS NOTE DATE OF SERVICE: 05/23/2023 SUBJECTIVE: This is a 63-year-old woman who was admitted with possible abdominal abscess, postoperatively had abdominal paracentesis. The patient is on broad spectrum IV antibiotics. OBJECTIVE: VITAL SIGNS: Pulse 77, blood pressure 120/73, respirations 18. CHEST: Clear to auscultation. CARDIOVASCULAR: S1, S2. ABDOMEN: Soft. NERVOUS SYSTEM: No focal deficits. LABORATORY DATA: WBC 13.7, other labs are noted. ASSESSMENT: 1. Possible abdominal abscess postoperative with sepsis present on admission, status post abdominal paracentesis. 2. Increased WBC. 3. Atelectasis. 4. Hyponatremia. 5. Hyperlipidemia. 6. Troponin 0.049 indeterminate. 7. Acute myocardial infarction, unlikely per Cardiology. 8. Hypertension. 9. Multiple medical issues. RECOMMENDATIONS: Recommended to continue current management, continue symptomatic treatment. Repeat labs, otherwise closely monitor with close followup with multiple consultants. The prognosis guarded. Further recommendations to follow. MMODL / IJN: [id number] /
[2023-05-24] MEDS: HYDROmorphone 0.5 MG/0.5 ML SYRINGE IVP PRN ×3 (05:13→21:40)
[2023-05-24] MEDS: VANCOMYCIN 1,250 MG in SODIUM CHLORIDE 0.9% 250 ML IVPB SCH (05:14)
[2023-05-24] MEDS: IPRATROPIUM-ALBUTEROL 3 ML NEB INHALATION SCH ×4 (07:56→20:43)
[2023-05-24] MEDS: HYDROcodone/APAP 5-325MG 1 EACH TAB PO PRN ×2 (09:21→17:56)
[2023-05-24] MEDS: DOCUSATE 100 MG CAP PO SCH ×2 (09:21→20:41)
[2023-05-24] MEDS: LISINOPRIL-HCTZ 20-12.5 MG 1 EACH TAB PO SCH (09:21)
[2023-05-24] MEDS: HEPARIN SODIUM,PORCINE/PF 5,000 UNIT/0.5 ML SYRINGE SQ SCH ×2 (09:22→20:44)
[2023-05-24] MEDS: PIPERACILLIN-TAZOBACTAM 3.375 GM in SODIUM CHLORIDE 0.9% 100 ML IVPB SCH ×3 (09:22→23:29)
[2023-05-24] MEDS: NICOTINE 14MG/24HR PATCH TRANSDERM SCH ×2 (09:22→09:44)
[2023-05-24] MEDS: metroNIDAZOLE-NS PMX 500 MG in SALINE 1 100ML.BAG IVPB SCH ×3 (09:23→23:31)
[2023-05-24] MEDS: PANTOPRAZOLE 40 MG/10 ML VIAL IVP SCH ×2 (09:23→20:44)
[2023-05-24 09:38] LABS: Magnesium 1.8 mg/dL (1.5-2.4); Phosphorus 3.6 mg/dL (2.4-5.1)
[2023-05-24 09:43] LABS: ALT 50 U/L (8-44); AST 28 U/L (13-35); Albumin 2.8 d/dL (3.8-4.9); Albumin/Globulin Ratio 0.97 Ratio (1.60-3.17); Alkaline Phosphatase 127 U/L (41-126); Blood Urea Nitrogen 4.9 mg/dL (9.0-27.0); Calcium 9.1 mg/dL (8.7-10.3); Chloride 108 mmol/L (96-109); Globulin 2.9 d/dL (1.6-3.3); Glucose 139 mg/dL (70-110); Sodium 142 mmol/L (135-145); Total Bilirubin <0.2 mg/dL (0.3-1.2); Total Protein 5.7 d/dL (6.2-8.2)
[2023-05-24 10:16] LABS: Basophils # (A) 0.06 X 10*3/uL (0.00-0.10); Basophils % (A) 0.4 %; Eosinophils # (A) 0.23 X 10*3/uL (0.04-0.35); Eosinophils % (A) 1.7 %; HCT 27.4 % (37.2-46.3); HGB 8.5 d/dL (12.0-15.0); Lymphocytes # (A) 1.41 X 10*3/uL (0.90-5.00); Lymphocytes % (A) 10.2 %; MCH 29.5 pg (27.0-32.0); MCV 95.1 FL (80.0-97.0); Mean Platelet Volume 10.5 FL (9.5-12.2); Monocytes # (A) 1.16 X 10*3/uL (0.20-1.00); Monocytes % (A) 8.4 %; NRBC Per 100 WBC 0 X 10*3/uL (0.00-0.01); Neutrophils # (A) 10.88 X 10*3/uL (1.80-7.70); Neutrophils % (A) 78.5 %; Platelet Count 1088 X 10*3/uL (140-440); RBC 2.88 X 10*6/uL (4.10-5.20); RDW 16.1 % (11.5-14.5); WBC 13.85 X 10*3/uL (4.50-10.00)
--- NOTE | 2023-05-24 11:12 | P.PN ---
Subjective Progress Note Date: 05/24/23 Principal diagnosis: pelvic abscess on CT s/p laparoscopic appendectomy 62F initially presented to the ER with complaints of right lower quadrant abdominal pain for the past week. Was found to have a CT concerning for acute appendicitis with no associated abscess. Underwent laparoscopic appendectomy on 05/11; noted to have a ruptured appendix with feculuent peritonitis. Post opera tively did well. Eager to go home as was tolerating PO diet, passing flatus; pain well controlled with PO analgesia. Discussed at that time she was higher risk for abscess development due to feculent peritonitis; symptoms to prompt return visit to ER discussed & was sent home with PO antibiotics after 3 days of inpatient IV antibiotics. Returned to ER overnight for increased right-sided pain with deep inspiration over the past 24 or so hours. Leukocytosis of 23 with slight troponin release. CT revealed pelvic abscess; which wasn't unexpected due to her ruptured appendix. Takes a good 7-10 days for an abscess to form in these situations, so wouldn't have likely been seen on her first admission. Underwent successful IR drain placement 05/21. Had troponin release on admission. Suspect 2/2 acute illness. Echo completed & essentially negative. Seen & cleared by Cardiology. Continues to slowly progress. Discomfort over drain site & still with pressure over right side of abdomen. Persistent leukocytosis today at 13. Thrombocytosis. No tachycardia, afebrile. Tolerating diet. Passing flatus; having BMs. Drain with purulent drainage; at least 40 mL out overnight. Started on home BP medicat ion yesterday. Still awaiting final cultures; aspirate showing GNB. Objective - Vital Signs Vital signs: Vital Signs Temp 98.4 F 05/24/23 03:00 Pulse 75 05/24/23 07:21 Resp 16 05/24/23 07:21 BP 166/83 05/24/23 07:21 Pulse Ox 96 05/24/23 07:53 FiO2 21 05/22/23 08:51 Intake & Output 05/23/23 05/24/23 05/24/23 18:59 06:59 18:59 Intake Total 100 Output Total 40 Balance -40 100 Intake: Intake, IV Titration 100 Amount metroNIDAZOLE-NS PMX 500 100 mg In Saline 1 100ml.bag @ 100 mls/hr IVPB Q8HR [facility] Rx#:[id number] Output: Drainage 40 Bilateral Buttock 40 Other: Voiding Method Toilet Toilet # Voids 1 - Constitutional General appearance: Present: cooperative, no acute distress - EENT Eyes: Present: anicteric sclerae ENT: Present: hearing grossly normal - Neck Details: supple - Respiratory Details: non labored, normal effort - Cardiovascular Rhythm: regular - Gastrointestinal Gastrointestinal Comment(s): IR drain with purulent drainage General gastrointestinal: Present: soft. Absent: distended, rigid, tenderness - Integumentary Integumentary Comment(s): warm & dry, no diaphoresis - Neurologic Neurologic Comment(s): no gross deficits - Musculoskeletal Musculoskeletal Comment(s): no LE edema - Psychiatric Psychiatric Comment(s): cooperative, normal affect - Labs CBC & Chem 7: 05/24/23 06:31 05/24/23 06:31 Labs: Abnormal Lab Results - Last 24 Hours (Table) 05/23/23 05/23/23 05/24/23 Range/Units 05:37 05:37 06:31 WBC 13.17 H 13.85 H (4.50-10.00) X 10*3/uL RBC 2.80 L 2.88 L (4.10-5.20) X 10*6/uL Hgb 8.1 L 8.5 L (12.0-15.0) d/dL Hct 26.2 L 27.4 L (37.2-46.3) % MCHC 30.9 L 31.0 L (32.0-37.0) d/dL RDW 15.9 H 16.1 H (11.5-14.5) % Plt Count 979 H 1088 H* (140-440) X 10*3/uL Neutrophils # 10.88 H (1.80-7.70) X 10*3/uL Monocytes # 1.16 H (0.20-1.00) X 10*3/uL Potassium (3.5-5.5) mmol/L Carbon Dioxide (21.6-31.8) mmol/L Anion Gap (4.00-12.00) mmol/L BUN 6.8 L (9.0-27.0) mg/dL Creatinine 0.4 L (0.6-1.5) mg/dL BUN/Creatinine Ratio (12.00-20.00) Ratio Glucose (70-110) mg/dL Total Bilirubin (0.3-1.2) mg/dL ALT (8-44) U/L Alkaline Phosphatase (41-126) U/L Total Protein (6.2-8.2) d/dL Albumin (3.8-4.9) d/dL Albumin/Globulin Ratio (1.60-3.17) Ratio 05/24/23 Range/Units 06:31 WBC (4.50-10.00) X 10*3/uL RBC (4.10-5.20) X 10*6/uL Hgb (12.0-15.0) d/dL Hct (37.2-46.3) % MCHC (32.0-37.0) d/dL RDW (11.5-14.5) % Plt Count (140-440) X 10*3/uL Neutrophils # (1.80-7.70) X 10*3/uL Monocytes # (0.20-1.00) X 10*3/uL Potassium 3.0 L (3.5-5.5) mmol/L Carbon Dioxide 20.0 L (21.6-31.8) mmol/L Anion Gap 14.00 H (4.00-12.00) mmol/L BUN 4.9 L (9.0-27.0) mg/dL Creatinine (0.6-1.5) mg/dL BUN/Creatinine Ratio 7.00 L (12.00-20.00) Ratio Glucose 139 H (70-110) mg/dL Total Bilirubin <0.2 L (0.3-1.2) mg/dL ALT 50 H (8-44) U/L Alkaline Phosphatase 127 H (41-126) U/L Total Protein 5.7 L (6.2-8.2) d/dL Albumin 2.8 L (3.8-4.9) d/dL Albumin/Globulin Ratio 0.97 L (1.60-3.17) Ratio Microbiology - Last 24 Hours (Table) 05/21/23 00:24 Blood Culture - Preliminary Blood 05/21/23 00:24 Blood Culture - Preliminary Blood 05/21/23 15:30 Gram Stain - Preliminary Aspirate Body Fluid Culture - Preliminary Gram Neg Bacilli Gram Neg Bacilli#2 Assessment and Plan Assessment: pelvic abscess, not unexpected (higher risk due to feculent appendicitis, and often takes 7-10 days to mature & present itself) s/p IR drainage 05/21 - cultures +GNB s/p laparoscopic appendectomy 05/11 for ruptured feculent appendicitis leukocytosis, 2/2 to above- improving atelectasis thrombocytosis, reactive to abscess hx HTN, on Lisinopril at home Plan: trend labs continue abx - await finalized cultures & sensitivities to narrow abx OK for diet & to saline lock IVF encourage ambulation, incentive spirometer, pulmonary toilette IR drain care - will need repeat CT prior to drain removal to ensure near-complete resolution of abscess - may repeat CT scan Friday to evaluate interval regression of abscess started ASA 81 mg for thrombocytosis encourage oral analgesia
[2023-05-24] MEDS: ASPIRIN 81 MG PO SCH (11:16)
[2023-05-24] MEDS: LACTATED RINGERS 1,000 ML IV SCH (13:06)
[2023-05-24] MEDS ORDERED: Potassium Replacement Protocol 1 EACH MISC MISCELLANE PRN (14:52)
[2023-05-24] MEDS ORDERED: Magnesium Replacement Protocol 1 EACH MISC MISCELLANE PRN (14:52)
[2023-05-24] MEDS: POTASSIUM CHLORIDE ER 20 MEQ TAB.ER PO SCH ×3 (15:23→17:54)
--- NOTE | 2023-05-24 18:23 | P.CONS ---
History of Present Illness - Reason for Consult Consult date: 05/24/23 Intra-abdominal abscess need for IV antibiotic therapy Requesting physician: Kate Donaldson - Chief Complaint Abdominal pain times few days - History of Present Illness Patient is a 63-year-old female who was recently admitted to this hospital with abdominal pain in this patient who did have evidence of pelvic abscess at from ruptured appendicitis status post laparoscopic appendectomy patient was discharged home on oral Augmentin x7 days on 05/15/2023, patient pr esenting back to the hospital on 05/21/2023 for evaluation of abdominal pain apparently her symptoms started few days before presentation the hospital, the patient pain was mostly in her lower abdominal area describing it to be sharp and was almost 7-8 out of 10 with no radiation some the nausea but no vomiting and no diarrhea, patient did have some chills and on presentation to the hospital on 05/21/2023 the patient was afebrile subsequent did have a low-grade fever of 99.6 F patient did have a white count of 19,000 with a left shift kidney function was normal patient did have a CT abdominal pelvis which did shows 7X4.8X 5.7 cm fluid collection in the posterior pelvis considering developing abscess patient is s/p CT-guided drainage of this abscess by intervention radiology on 05/22/2023 cultures are currently growing gram-negative bacilli patient is on the combination of Flagyl Zosyn and vancomycin infectious disease was consulted today for management of antibiotic therapy and need for IV antibiotics on discharge Review of Systems Positive point and negatives has been mentioned in the HPI, complete review of systems was performed and all other systems are negative Past Medical History Past Medical History: Hypertension Additional Past Medical History / Comment(s): back pain History of Any Multi-Drug Resistant Organisms: None Reported Past Surgical History: Appendectomy, Orthopedic Surgery Additional Past Surgical History / Comment(s): ectopic Past Anesthesia/Blood Transfusion Reactions: No Reported Reaction Smoking Status: Current every day smoker Medications and Allergies Home Medications Medication Instructions Recorded Confirmed Type HYDROcodone/APAP 7.5-325MG [[place] 1 tab PO QID 05/11/23 05/21/23 History 7.5-325] Lisinopril-Hctz 20-12.5 mg 1 tab PO DAILY 05/11/23 05/21/23 History [Zestoretic 20-12.5] Naproxen [Naprosyn] 500 mg PO BID 05/11/23 05/21/23 History Ciprofloxacin HCl [Cipro] 500 mg PO Q12HR 14 Days #28 tab 05/26/23 Rx metroNIDAZOLE [Flagyl] 500 mg PO TID #36 tab 05/26/23 Rx Aspirin 81 mg PO DAILY #30 tab 05/27/23 Rx Allergies Allergy/AdvReac Type Severity Reaction Status Date / Time No Known Allergies Allergy Verified 05/21/23 07:07 Physical Exam Vitals: Vital Signs Temp Pulse Pulse Resp BP Pulse Ox 05/24/23 07:53 96 05/24/23 07:21 75 16 166/83 96 05/24/23 03:00 98.4 F 73 17 163/83 97 05/23/23 19:49 98.6 F 76 16 159/78 97 05/23/23 13:45 99.0 F 77 15 120/73 95 05/23/23 12:33 74 Intake and Output 05/23/23 05/24/23 05/24/23 22:59 06:59 14:59 Intake Total 100 Output Total 40 Balance -40 100 Intake: Intake, IV Titration 100 Amount metroNIDAZOLE-NS PMX 500 100 mg In Saline 1 100ml.bag @ 100 mls/hr IVPB Q8HR [facility] Rx#:[id number] Output: Drainage 40 Bilateral Buttock 40 Other: Voiding Method Toilet # Voids 1 GENERAL DESCRIPTION: Middle-aged female lying in bed, no distress. No tachypnea or accessory muscle of respiration use. HEENT: Shows Pallor , no scleral icterus. Oral mucous membrane is dry. No pharyngeal erythema or thrush NECK: Trachea central, no thyromegaly. LUNGS: Unlabored breathing. Clear to auscultation anteriorly. No wheeze or crackle. HEART: S1, S2, regular rate and rhythm. No loud murmur ABDOMEN: Soft, lower abdominal tenderness and did have a purulent drainage in the VIRGILIO drain EXTREMITIES: No edema of feet. SKIN: No rash, no masses palpable. NEUROLOGICAL: The patient is awake, alert, oriented x3, mood and affect normal. sical Results CBC & Chem 7: 05/27/23 04:31 05/27/23 04:31 Labs: Abnormal Lab Results - Last 24 Hours (Table) 05/24/23 05/24/23 Range/Units 06:31 06:31 WBC 13.85 H (4.50-10.00) X 10*3/uL RBC 2.88 L (4.10-5.20) X 10*6/uL Hgb 8.5 L (12.0-15.0) d/dL Hct 27.4 L (37.2-46.3) % MCHC 31.0 L (32.0-37.0) d/dL RDW 16.1 H (11.5-14.5) % Plt Count 1088 H* (140-440) X 10*3/uL Neutrophils # 10.88 H (1.80-7.70) X 10*3/uL Monocytes # 1.16 H (0.20-1.00) X 10*3/uL Potassium 3.0 L (3.5-5.5) mmol/L Carbon Dioxide 20.0 L (21.6-31.8) mmol/L Anion Gap 14.00 H (4.00-12.00) mmol/L BUN 4.9 L (9.0-27.0) mg/dL BUN/Creatinine Ratio 7.00 L (12.00-20.00) Ratio Glucose 139 H (70-110) mg/dL Total Bilirubin <0.2 L (0.3-1.2) mg/dL ALT 50 H (8-44) U/L Alkaline Phosphatase 127 H (41-126) U/L Total Protein 5.7 L (6.2-8.2) d/dL Albumin 2.8 L (3.8-4.9) d/dL Albumin/Globulin Ratio 0.97 L (1.60-3.17) Ratio Microbiology - Last 24 Hours (Table) 05/21/23 00:24 Blood Culture - Preliminary Blood 05/21/23 00:24 Blood Culture - Preliminary Blood 05/21/23 15:30 Gram Stain - Preliminary Aspirate Body Fluid Culture - Preliminary Gram Neg Bacilli Gram Neg Bacilli#2 Assessment and Plan (1) Intra-abdominal abscess Status: Acute Code(s): K65.1 - PERITONEAL ABSCESS SNOMED Code(s): 06283036 Plan: 1patient present to hospital abdominal pain in this patient who is status post laparoscopic appendectomy for ruptured appendicitis now with evidence of pelvic abscess s/p CT-guided drainage by IR on 05/21/2023 cultures current growing gram-negative with ID sensitivities pending patient is afebrile however white count still elevated 2-discontinue vancomycin to decrease risk of nephrotoxicity as no gram-positive has been grown and continue with the Zosyn while waiting for the ID sensitivities of the gram-negative's 3-patient benefit from repeat CT before discharge to make sure there is decrease in size of this abscess 4-discharge antibiotics will depend on the culture clinical response as well as repeat CT hopefully p.o. as the patient seem to be reluctant of going home on IV antibiotic therapy We will follow on clinical condition and cultures to further adjust medication if needed Thank you for this consultation we will follow the patient along with you Dictation was produced using [employer] dictation software. please excuse any grammatical, word or spelling errors. Time with Patient: Greater than 30
--- NOTE | 2023-05-24 23:06 | PN ---
PROGRESS NOTE DATE OF SERVICE: 05/24/2023 SUBJECTIVE: This is a 63-year-old woman, who was admitted with possible abdominal abscess, is being closely monitored. The patient on broad-spectrum IV antibiotics. The drainage is foul smelling at this time. The patient also had severe hypokalemia as well as thrombocytosis also, possibly secondary to infection, inflammatory reaction. Surgery and Infectious Disease are following the patient closely. PAST MEDICAL HISTORY: Reviewed. REVIEW OF SYSTEMS: A 14-point review is negative except as mentioned earlier. CURRENT MEDICATIONS: Reviewed include IV Zosyn. Rest of the medication noted. PHYSICAL EXAMINATION: VITAL SIGNS: Pulse 75, blood pressure 160/83, respirations 16 HEENT: Conjunctivae normal. NECK: No JVD. CARDIOVASCULAR: S1, S2. RESPIRATIONS: Breath sounds diminished at the bases. ABDOMEN: Soft, mild diffuse distention. Nontender. No mass palpable. LEGS: No edema. NERVOUS SYSTEM: Nonfocal. LABORATORY DATA: Reviewed. ASSESSMENT: 1. Possible abdominal abscess postoperative with sepsis present on admission, status post abdominal paracentesis. 2. Increased WBC. 3. Atelectasis. 4. Hyponatremia. 5. Hyperlipidemia. 6. Troponin 0.049 indeterminate. 7. Severe hypokalemia. 8. Thrombocytosis, possibly secondary to inflammation. 9. Acute myocardial infarction, likely per Cardiology. 10.Hypertension. 11.Multiple medical issues. RECOMMENDATIONS: Recommend to continue current management and continue symptomatic treatment. Otherwise, repeat labs. Obtain potassium. We will monitor the platelet counts closely. Continue the antibiotics. Cultures are growing polymicrobial gram-negative bacilli #1 and #2. ID pending on this. DVT prophylaxis. Prognosis guarded. Closely follow with multiple consultants. Further recommendations to follow. MMODL / IJN: [id number] /
[2023-05-25] MEDS: HYDROcodone/APAP 5-325MG 1 EACH TAB PO PRN ×4 (02:17→22:03)
[2023-05-25] MEDS: POTASSIUM CHLORIDE ER 20 MEQ TAB.ER PO SCH ×2 (02:17→03:29)
[2023-05-25 06:23] LABS: ALT 34 U/L (4-34); AST 21 U/L (14-36); African American GFR (CKD) >90 (>60 ml/min/1.73 sqM); Albumin 2.6 g/dL (3.5-5.0); Albumin/Globulin Ratio 0.8; Alkaline Phosphatase 122 U/L (38-126); Anion Gap 9 mmol/L; Blood Urea Nitrogen 3 mg/dL (7-17); Calcium 8.8 mg/dL (8.4-10.2); Carbon Dioxide 23 mmol/L (22-30); Chloride 107 mmol/L (98-107); Globulin 3.1 g/dL; Glucose 110 mg/dL (74-99); Magnesium 1.9 mg/dL (1.6-2.3); Non-African American GFR(CKD) >90 (>60 ml/min/1.73 sqM); Potassium 3.3 mmol/L (3.5-5.1); Sodium 139 mmol/L (137-145); Total Bilirubin 0.2 mg/dL (0.2-1.3); Total Protein 5.7 g/dL (6.3-8.2)
[2023-05-25] MEDS: LACTATED RINGERS 1,000 ML IV SCH ×2 (06:41→14:33)
[2023-05-25] MEDS: IPRATROPIUM-ALBUTEROL 3 ML NEB INHALATION SCH ×4 (07:44→20:31)
[2023-05-25] MEDS: DOCUSATE 100 MG CAP PO SCH ×2 (08:12→22:01)
[2023-05-25] MEDS: NICOTINE 14MG/24HR PATCH TRANSDERM SCH (08:13)
[2023-05-25] MEDS: HEPARIN SODIUM,PORCINE/PF 5,000 UNIT/0.5 ML SYRINGE SQ SCH ×2 (08:19→21:56)
[2023-05-25] MEDS: metroNIDAZOLE-NS PMX 500 MG in SALINE 1 100ML.BAG IVPB SCH ×3 (08:19→23:45)
[2023-05-25] MEDS: PIPERACILLIN-TAZOBACTAM 3.375 GM in SODIUM CHLORIDE 0.9% 100 ML IVPB SCH ×3 (08:19→23:43)
[2023-05-25] MEDS: LISINOPRIL-HCTZ 20-12.5 MG 1 EACH TAB PO SCH (08:20)
[2023-05-25] MEDS: ASPIRIN 81 MG PO SCH (08:20)
[2023-05-25] MEDS: PANTOPRAZOLE 40 MG/10 ML VIAL IVP SCH ×2 (08:20→21:56)
--- NOTE | 2023-05-25 10:13 | P.PN ---
Subjective Progress Note Date: 05/25/23 Principal diagnosis: pelvic abscess on CT s/p laparoscopic appendectomy 62F initially presented to the ER with complaints of right lower quadrant abdominal pain for the past week. Was found to have a CT concerning for acute appendicitis with no associated abscess. Underwent laparoscopic appendectomy on 05/11; noted to have a ruptured appendix with feculuent peritonitis. Post opera tively did well. Eager to go home as was tolerating PO diet, passing flatus; pain well controlled with PO analgesia. Discussed at that time she was higher risk for abscess development due to feculent peritonitis; symptoms to prompt return visit to ER discussed & was sent home with PO antibiotics after 3 days of inpatient IV antibiotics. Returned to ER overnight for increased right-sided pain with deep inspiration over the past 24 or so hours. Leukocytosis of 23 with slight troponin release. CT revealed pelvic abscess; which wasn't unexpected due to her ruptured appendix. Takes a good 7-10 days for an abscess to form in these situations, so wouldn't have likely been seen on her first admission. Underwent successful IR drain placement 05/21. Had troponin release on admission. Suspect 2/2 acute illness. Echo completed & essentially negative. Seen & cleared by Cardiology. Continues to slowly progress. Discomfort over drain site & still with pressure over right side of abdomen, but improved. CBC not resulted at time of documentation. No tachycardia, afebrile. Tolerating diet. Passing flatus; having BMs but more liquid/soft. Drain with continued purulent drainage. Cultures resulted; nearly watt-sensitive. ID consulted yesterday. Started on home BP medication yesterday; BP still elevated. Did endorse rough night due to IV needing to be restarted. Objective - Vital Signs Vital signs: Vital Signs Temp 98.5 F 05/25/23 07:00 Pulse 78 05/25/23 07:55 Resp 18 05/25/23 07:00 BP 181/90 05/25/23 07:00 Pulse Ox 98 05/25/23 07:47 FiO2 21 05/22/23 08:51 Intake & Output 05/24/23 05/25/23 05/25/23 18:59 06:59 18:59 Weight 68.3 kg Other: Voiding Method Toilet # Voids 2 - Constitutional General appearance: Present: cooperative, no acute distress - EENT Eyes: Present: anicteric sclerae ENT: Present: hearing grossly normal - Neck Details: supple - Respiratory Details: non labored, normal effort - Cardiovascular Rhythm: regular - Gastrointestinal Gastrointestinal Comment(s): exam improves daily; no further fullness over right side of abdomen; IR drain with purulent drainage General gastrointestinal: Present: soft. Absent: distended, rigid, tenderness - Integumentary Integumentary Comment(s): warm & dry, no diaphoresis - Neurologic Neurologic Comment(s): no gross deficits - Musculoskeletal Musculoskeletal Comment(s): no LE edema - Psychiatric Psychiatric Comment(s): cooperative, normal affect - Labs CBC & Chem 7: 05/24/23 06:31 05/25/23 05:59 Labs: Abnormal Lab Results - Last 24 Hours (Table) 05/24/23 05/24/23 05/25/23 Range/Units 06:31 19:38 05:59 WBC 13.85 H (4.50-10.00) X 10*3/uL RBC 2.88 L (4.10-5.20) X 10*6/uL Hgb 8.5 L (12.0-15.0) d/dL Hct 27.4 L (37.2-46.3) % MCHC 31.0 L (32.0-37.0) d/dL RDW 16.1 H (11.5-14.5) % Plt Count 1088 H* (140-440) X 10*3/uL Neutrophils # 10.88 H (1.80-7.70) X 10*3/uL Monocytes # 1.16 H (0.20-1.00) X 10*3/uL Potassium 3.3 L 3.3 L (3.5-5.1) mmol/L BUN 3 L (7-17) mg/dL Glucose 110 H (74-99) mg/dL Total Protein 5.7 L (6.3-8.2) g/dL Albumin 2.6 L (3.5-5.0) g/dL 05/25/23 Range/Units 05:59 WBC (4.50-10.00) X 10*3/uL RBC (4.10-5.20) X 10*6/uL Hgb (12.0-15.0) d/dL Hct (37.2-46.3) % MCHC (32.0-37.0) d/dL RDW (11.5-14.5) % Plt Count (140-440) X 10*3/uL Neutrophils # (1.80-7.70) X 10*3/uL Monocytes # (0.20-1.00) X 10*3/uL Potassium 3.3 L (3.5-5.1) mmol/L BUN (7-17) mg/dL Glucose (74-99) mg/dL Total Protein (6.3-8.2) g/dL Albumin (3.5-5.0) g/dL Microbiology - Last 24 Hours (Table) 05/21/23 15:30 Gram Stain - Preliminary Aspirate Body Fluid Culture - Preliminary Escherichia coli Klebsiella pneumoniae 05/21/23 00:24 Blood Culture - Preliminary Blood 05/21/23 00:24 Blood Culture - Preliminary Blood Assessment and Plan Assessment: pelvic abscess, not unexpected (higher risk due to feculent appendicitis, and often takes 7-10 days to mature & present itself) s/p IR drainage 05/21 - cultures +Ecoli & Klebsiella - ID consulted yesterday s/p laparoscopic appendectomy 05/11 for ruptured feculent appendicitis leukocytosis, 2/2 to above- improving atelectasis thrombocytosis, likely reactive to abscess hx HTN, on Lisinopril at home hypokalemia Plan: trend labs - on potassium replacement continue abx, CT scan of A/P ordered for Saturday 05/26 - appreciate ID eval & recommendations - will need abx on discharge, she'd prefer oral to IV abx OK for diet & to saline lock IVF - will add Ensures today, as she is a self-proclaimed picky eater encourage ambulation, incentive spirometer, pulmonary toilette IR drain care - will repeat CT tomorrow to evaluate interval progression/regression of abscess started ASA 81 mg for thrombocytosis encourage oral analgesia & limit IV analgesia use
[2023-05-25 10:58] LABS: Basophils # (A) 0.06 X 10*3/uL (0.00-0.10); Basophils % (A) 0.5 %; Eosinophils # (A) 0.14 X 10*3/uL (0.04-0.35); Eosinophils % (A) 1.3 %; HCT 26.4 % (37.2-46.3); HGB 8.3 d/dL (12.0-15.0); Lymphocytes # (A) 1.79 X 10*3/uL (0.90-5.00); Lymphocytes % (A) 16.4 %; MCH 29.4 pg (27.0-32.0); MCHC 31.4 d/dL (32.0-37.0); MCV 93.6 FL (80.0-97.0); Mean Platelet Volume 10.1 FL (9.5-12.2); Monocytes # (A) 1.03 X 10*3/uL (0.20-1.00); Monocytes % (A) 9.4 %; NRBC Per 100 WBC 0 X 10*3/uL (0.00-0.01); Neutrophils # (A) 7.85 X 10*3/uL (1.80-7.70); Neutrophils % (A) 71.9 %; Platelet Count 1186 X 10*3/uL (140-440); RBC 2.82 X 10*6/uL (4.10-5.20); RDW 15.8 % (11.5-14.5); WBC 10.92 X 10*3/uL (4.50-10.00)
[2023-05-25] MEDS ORDERED: POTASSIUM CHLORIDE ER 20 MEQ TAB.ER PO STA (16:32)
--- NOTE | 2023-05-25 20:06 | P.PN ---
Subjective Progress Note Date: 05/25/23 Principal diagnosis: Intra-abdominal abscess Patient is a 63-year-old female recently admitted to the hospital with gangrenous perforated appendicitis status post laparoscopic appendectomy subsequently presented back to the hospital abdominal pain has been diagnosed with a pelvic abscess s/p IR drainage on 05/22/2023 cultures currently growing E. coli and Klebsiella On today's evaluation that is 05/25/2023 patient denies having any fever or any chills, the patient abdominal pain has slightly decreased in intensity patient denies any nausea no vomiting no chest pain shortness of breath or cough did have some diarrhea Objective - Vital Signs Vital signs: Vital Signs Temp 98.5 F 05/25/23 07:00 Pulse 78 05/25/23 07:55 Resp 18 05/25/23 07:00 BP 181/90 05/25/23 07:00 Pulse Ox 98 05/25/23 07:47 FiO2 21 05/22/23 08:51 Intake & Output 05/24/23 05/25/23 05/25/23 18:59 06:59 18:59 Weight 68.3 kg Other: Voiding Method Toilet # Voids 2 - Exam GENERAL DESCRIPTION: Middle-aged female lying in bed in no distress RESPIRATORY SYSTEM: Unlabored breathing , decreased breath sounds at bases HEART: S1 S2 regular rate and rhythm ,no loud murmurs ABDOMEN: Soft , no tenderness EXTREMITIES: No edema feet - Labs CBC & Chem 7: 05/25/23 05:59 05/25/23 05:59 Labs: Abnormal Lab Results - Last 24 Hours (Table) 05/24/23 05/25/23 05/25/23 Range/Units 19:38 05:59 05:59 Potassium 3.3 L 3.3 L 3.3 L (3.5-5.1) mmol/L BUN 3 L (7-17) mg/dL Glucose 110 H (74-99) mg/dL Total Protein 5.7 L (6.3-8.2) g/dL Albumin 2.6 L (3.5-5.0) g/dL Microbiology - Last 24 Hours (Table) 05/21/23 15:30 Gram Stain - Preliminary Aspirate Body Fluid Culture - Preliminary Escherichia coli Klebsiella pneumoniae 05/21/23 00:24 Blood Culture - Preliminary Blood 05/21/23 00:24 Blood Culture - Preliminary Blood Assessment and Plan (1) Intra-abdominal abscess Current Visit: Yes Status: Acute Code(s): K65.1 - PERITONEAL ABSCESS SNOMED Code(s): 60037576 (2) Post op infection Current Visit: Yes Status: Acute Code(s): T81.40XA - INFECTION FOLLOWING A PROCEDURE, UNSPECIFIED, INIT SNOMED Code(s): 97915767 Plan: 1patient present to hospital abdominal pain in this patient who is status post laparoscopic appendectomy for ruptured appendicitis now with evidence of pelvic abscess s/p CT-guided drainage by IR on 05/21/2023 cultures currently growing Klebsiella and E. coli that is sensitive pathogen and is covered with the Zosyn to continue, waiting for the repeat CT abdominal pelvis if did show significant improvement may be able to transition to oral antibiotics questions Answered Dictation was produced using [employer] dictation software. please excuse any grammatical, word or spelling errors. Time with Patient: Less than 30
--- NOTE | 2023-05-25 22:17 | PN ---
PROGRESS NOTE DATE OF SERVICE: 05/25/2023 SUBJECTIVE: This is a 63-year-old woman, who was admitted with possible intraabdominal abscess, is being closely monitored. Repeat CT scan is planned at this time. The patient is on multiple antibiotics. The cultures are showing E coli and Klebsiella pneumonia which are both poly sensitive. PAST MEDICAL HISTORY: Reviewed. REVIEW OF SYSTEMS: A 14-point review is negative except as mentioned earlier. PHYSICAL EXAMINATION: VITAL SIGNS: Pulse is 75, blood pressure 130/70, respirations 18. HEENT: Conjunctivae normal. NECK: No JVD. CARDIOVASCULAR: S1, S2. RESPIRATIONS: Breath sounds diminished at the bases. ABDOMEN: Soft. No guarding. No rigidity. LABORATORY DATA: WBC 11.2, platelets are 1186, potassium 3. Rest of the labs are noted. ASSESSMENT: 1. Possible intraabdominal abscess, postoperative sepsis, present on admission, status post abdominal paracentesis. 2. Increased WBC. 3. Atelectasis. 4. Hyponatremia. 5. Hyperlipidemia. 6. Troponin 0.049 indeterminate. 7. Severe hypokalemia. 8. Thrombocytosis, possibly secondary to inflammation. 9. Acute myocardial infarction, likely per Cardiology. 10.Hypertension. 11.Multiple medical issues. RECOMMENDATIONS: Recommend to continue current medications. Continue symptomatic treatment. Continue with IV antibiotics. Potassium supplementation. The patient also had elevated platelets, possibly secondary to inflammation. Repeat labs tomorrow. Closely follow with Surgery. Prognosis guarded. Repeat CAT scan. Further recommendations to follow. MMODL / IJN: [id number] /
[2023-05-26] MEDS: LACTATED RINGERS 1,000 ML IV SCH ×2 (01:58→20:15)
[2023-05-26] MEDS ORDERED: IOPAMIDOL CONTRAST (ORAL USE) VIAL PO PRN (06:00)
[2023-05-26] MEDS: HYDROcodone/APAP 5-325MG 1 EACH TAB PO PRN ×3 (06:43→20:21)
[2023-05-26] MEDS: PANTOPRAZOLE 40 MG/10 ML VIAL IVP SCH ×2 (08:40→22:16)
[2023-05-26] MEDS: metroNIDAZOLE-NS PMX 500 MG in SALINE 1 100ML.BAG IVPB SCH ×3 (08:40→23:34)
[2023-05-26] MEDS: PIPERACILLIN-TAZOBACTAM 3.375 GM in SODIUM CHLORIDE 0.9% 100 ML IVPB SCH ×2 (08:41→15:46)
--- NOTE | 2023-05-26 08:43 | CT ---
EXAMINATION TYPE: CT abdomen pelvis wo/w con DATE OF EXAM: 05/26/2023 COMPARISON: 05/21/2023 HISTORY: Follow up of abscess CT DLP: 1731.6 mGycm CONTRAST: CT scan of the abdomen and pelvis is performed without Oral Contrast and without and with IV Contrast , patient injected with 100 mL of Isovue 300. FINDINGS: LUNG BASES-: Persistent right basilar atelectasis and pleural effusion. LIVER/GB: No calcified gallstones. No space occupying hepatic lesion. Biliary tree is of normal ca liber. PANCREAS: No inflammation. No distinct mass. SPLEEN: No splenic enlargement. No lesion seen. ADRENALS: No nodule. No thickening. KIDNEYS/BLADDER: There is subtle patchy enhancement of the kidneys which can be seen in patients wit h pyelonephritis. Correlate clinically. No hydronephrosis. No nephrolithiasis. No distinct renal ma ss. Urinary bladder grossly unremarkable. BOWEL: Again noted are changes of recent appendectomy with residual strandy attenuation. There are 2 small fluid collections noted within the right hemiabdomen anteriorly adjacent to the greater omentum image 57 sequence 301 measuring 1.3 mm and 9 mm respectively. Also see coronal image 29 sequence 302 and image 36 sequence 302. Drainage catheter is seen within the pelvis with near complete resolution of previously noted pelvic abscess. No evidence for free air. Small bowel ileus suggested. GENITAL ORGANS: No gross abnormality. LYMPH NODES: No greater than 1cm abdominal or pelvic lymph nodes are appreciated. AORTA: No significant abnormality. OSSEOUS STRUCTURES: No significant abnormality is seen. OTHER: No significant additional abnormality is seen. IMPRESSION: 1. 2 small developing abscesses are felt to be present within the right hemiabdomen anteriorly adjace nt to the omentum as discussed above. 2. Near complete resolution of pelvic abscess with drainage catheter in place. 3. Postoperative changes of recent appendectomy 4. Correlate for pyelonephritis. 5. Basilar compressive atelectasis and pleural effusion.
[2023-05-26] MEDS: DOCUSATE 100 MG CAP PO SCH ×2 (10:01→20:17)
[2023-05-26] MEDS: ASPIRIN 81 MG PO SCH (10:01)
[2023-05-26] MEDS: HEPARIN SODIUM,PORCINE/PF 5,000 UNIT/0.5 ML SYRINGE SQ SCH ×2 (10:01→20:16)
[2023-05-26] MEDS: LISINOPRIL-HCTZ 20-12.5 MG 1 EACH TAB PO SCH (10:01)
[2023-05-26] MEDS: NICOTINE 14MG/24HR PATCH TRANSDERM SCH (10:04)
[2023-05-26 10:05] LABS: ALT 30 U/L (8-44); AST 24 U/L (13-35); Albumin 2.9 d/dL (3.8-4.9); Albumin/Globulin Ratio 0.97 Ratio (1.60-3.17); Alkaline Phosphatase 115 U/L (41-126); BUN/Creat Ratio 6.88 Ratio (12.00-20.00); Blood Urea Nitrogen 5.5 mg/dL (9.0-27.0); Calcium 9.4 mg/dL (8.7-10.3); Carbon Dioxide 22.8 mmol/L (21.6-31.8); Chloride 106 mmol/L (96-109); Glucose 95 mg/dL (70-110); Sodium 141 mmol/L (135-145); Total Bilirubin <0.2 mg/dL (0.3-1.2); Total Protein 5.9 d/dL (6.2-8.2)
[2023-05-26] MEDS: IPRATROPIUM-ALBUTEROL 3 ML NEB INHALATION SCH ×4 (10:24→19:54)
[2023-05-26 10:34] LABS: Basophils # (A) 0.05 X 10*3/uL (0.00-0.10); Basophils % (A) 0.5 %; Eosinophils # (A) 0.18 X 10*3/uL (0.04-0.35); Eosinophils % (A) 1.7 %; HCT 28.2 % (37.2-46.3); HGB 8.8 d/dL (12.0-15.0); Lymphocytes # (A) 1.82 X 10*3/uL (0.90-5.00); Lymphocytes % (A) 16.9 %; MCH 29.6 pg (27.0-32.0); MCHC 31.2 d/dL (32.0-37.0); MCV 94.9 FL (80.0-97.0); Mean Platelet Volume 9.6 FL (9.5-12.2); Monocytes # (A) 1.01 X 10*3/uL (0.20-1.00); Monocytes % (A) 9.4 %; NRBC Per 100 WBC 0 X 10*3/uL (0.00-0.01); Neutrophils # (A) 7.64 X 10*3/uL (1.80-7.70); Neutrophils % (A) 70.9 %; Platelet Count 1269 X 10*3/uL (140-440); RBC 2.97 X 10*6/uL (4.10-5.20); WBC 10.77 X 10*3/uL (4.50-10.00)
--- NOTE | 2023-05-26 12:25 | P.PN ---
Subjective Progress Note Date: 05/26/23 Principal diagnosis: pelvic abscess on CT s/p laparoscopic appendectomy 62F initially presented to the ER with complaints of right lower quadrant abdominal pain for the past week. Was found to have a CT concerning for acute appendicitis with no associated abscess. Underwent laparoscopic appendectomy on 05/11; noted to have a ruptured appendix with feculuent peritonitis. Post opera tively did well. Eager to go home as was tolerating PO diet, passing flatus; pain well controlled with PO analgesia. Discussed at that time she was higher risk for abscess development due to feculent peritonitis; symptoms to prompt return visit to ER discussed & was sent home with PO antibiotics after 3 days of inpatient IV antibiotics. Returned to ER overnight for increased right-sided pain with deep inspiration over the past 24 or so hours. Leukocytosis of 23 with slight troponin release. CT revealed pelvic abscess; which wasn't unexpected due to her ruptured appendix. Takes a good 7-10 days for an abscess to form in these situations, so wouldn't have likely been seen on her first admission. Underwent successful IR drain placement 05/21. Had troponin release on admission. Suspect 2/2 acute illness. Echo completed & essentially negative. Seen & cleared by Cardiology. Continues to progress. Feeling better today. Ate more for lunch & dinner. Leukocytosis slowly down-trending. Persistent thrombocytosis. CT completed; near resolution of pelvic abscess, two small developing abscesses in right abdomen. IR drain with minimal output; didn't require emptying for 3 shifts. Eager to go home. Objective - Vital Signs Vital signs: Vital Signs Temp 98.4 F 05/26/23 08:27 Pulse 66 05/26/23 08:41 Resp 24 05/26/23 08:27 BP 165/70 05/26/23 08:27 Pulse Ox 96 05/26/23 01:51 FiO2 21 05/22/23 08:51 Intake & Output 05/25/23 05/26/23 05/26/23 18:59 06:59 18:59 Weight 67.4 kg Other: Voiding Method Toilet Toilet # Voids 4 # Bowel Movements 4 - Constitutional General appearance: Present: cooperative, no acute distress - EENT Eyes: Present: anicteric sclerae ENT: Present: hearing grossly normal - Neck Details: supple - Respiratory Details: non labored, normal effort - Cardiovascular Rhythm: regular - Integumentary Integumentary Comment(s): warm & dry, no diaphoresis - Neurologic Neurologic Comment(s): no gross deficits - Musculoskeletal Musculoskeletal Comment(s): no LE edema - Labs CBC & Chem 7: 05/26/23 03:50 05/26/23 03:50 Labs: Abnormal Lab Results - Last 24 Hours (Table) 05/26/23 05/26/23 Range/Units 03:50 03:50 WBC 10.77 H (4.50-10.00) X 10*3/uL RBC 2.97 L (4.10-5.20) X 10*6/uL Hgb 8.8 L (12.0-15.0) d/dL Hct 28.2 L (37.2-46.3) % MCHC 31.2 L (32.0-37.0) d/dL RDW 16.0 H (11.5-14.5) % Plt Count 1269 H* (140-440) X 10*3/uL Monocytes # 1.01 H (0.20-1.00) X 10*3/uL Anion Gap 12.20 H (4.00-12.00) mmol/L BUN 5.5 L (9.0-27.0) mg/dL BUN/Creatinine Ratio 6.88 L (12.00-20.00) Ratio Total Bilirubin <0.2 L (0.3-1.2) mg/dL Total Protein 5.9 L (6.2-8.2) d/dL Albumin 2.9 L (3.8-4.9) d/dL Albumin/Globulin Ratio 0.97 L (1.60-3.17) Ratio - Imaging and Cardiology CT scan - abdomen: report reviewed, image reviewed CT scan - pelvis: report reviewed, image reviewed Assessment and Plan Assessment: pelvic abscess, not unexpected (higher risk due to feculent appendicitis, and often takes 7-10 days to mature & present itself) developing small abscess within right abdomen s/p IR drainage 05/21 of pelvic abscess - cultures +Ecoli & Klebsiella - ID consulted yesterday; appreciate recommendations s/p laparoscopic appendectomy 05/11 for ruptured feculent appendicitis leukocytosis, 2/2 to above- improving atelectasis thrombocytosis, likely reactive to abscess hx HTN, on Lisinopril at home Plan: trend labs continue abx, CT scan showing near resolution of pelvic abscess but two small developing abscesses in right abdomen - appreciate ID eval & recommendations - will need abx on discharge, she'd prefer oral to IV abx encourage ambulation, incentive spirometer, pulmonary toilette IR drain care - will discuss with IR for possible drain removal today or tomorrow - the right abscesses too small at this time for drainage (9mm, 1.3 cm) started ASA 81 mg for thrombocytosis encourage oral analgesia & limit IV analgesia use anticipate discharge tomorrow if OK with consulting services
--- NOTE | 2023-05-26 13:38 | P.PN ---
Subjective Progress Note Date: 05/26/23 Principal diagnosis: Intra-abdominal abscess Patient is a 63-year-old female recently admitted to the hospital with gangrenous perforated appendicitis status post laparoscopic appendectomy subsequently presented back to the hospital abdominal pain has been diagnosed with a pelvic abscess s/p IR drainage on 05/22/2023 cultures currently growing E. coli and Klebsiella On today's evaluation that is 05/26/2023 patient denies remains to be afebrile, the patient abdominal pain has decreased in intensity has been complaining of mostly pain at the drainage catheter insertion site, patient denies any nausea no vomiting no chest pain shortness of breath or cough did have some diarrhea Objective - Vital Signs Vital signs: Vital Signs Temp 98.4 F 05/26/23 08:27 Pulse 66 05/26/23 08:41 Resp 24 05/26/23 08:27 BP 165/70 05/26/23 08:27 Pulse Ox 96 05/26/23 01:51 FiO2 21 05/22/23 08:51 Intake & Output 05/25/23 05/26/23 05/26/23 18:59 06:59 18:59 Weight 67.4 kg Other: Voiding Method Toilet Toilet # Voids 4 # Bowel Movements 4 - Exam GENERAL DESCRIPTION: Middle-aged female lying in bed in no distress RESPIRATORY SYSTEM: Unlabored breathing , decreased breath sounds at bases HEART: S1 S2 regular rate and rhythm ,no loud murmurs ABDOMEN: Soft , no tenderness EXTREMITIES: No edema feet - Labs CBC & Chem 7: 05/26/23 03:50 05/26/23 03:50 Labs: Abnormal Lab Results - Last 24 Hours (Table) 05/26/23 05/26/23 Range/Units 03:50 03:50 WBC 10.77 H (4.50-10.00) X 10*3/uL RBC 2.97 L (4.10-5.20) X 10*6/uL Hgb 8.8 L (12.0-15.0) d/dL Hct 28.2 L (37.2-46.3) % MCHC 31.2 L (32.0-37.0) d/dL RDW 16.0 H (11.5-14.5) % Plt Count 1269 H* (140-440) X 10*3/uL Monocytes # 1.01 H (0.20-1.00) X 10*3/uL Anion Gap 12.20 H (4.00-12.00) mmol/L BUN 5.5 L (9.0-27.0) mg/dL BUN/Creatinine Ratio 6.88 L (12.00-20.00) Ratio Total Bilirubin <0.2 L (0.3-1.2) mg/dL Total Protein 5.9 L (6.2-8.2) d/dL Albumin 2.9 L (3.8-4.9) d/dL Albumin/Globulin Ratio 0.97 L (1.60-3.17) Ratio Assessment and Plan (1) Intra-abdominal abscess Current Visit: Yes Status: Acute Code(s): K65.1 - PERITONEAL ABSCESS SNOMED Code(s): 78758889 (2) Post op infection Current Visit: Yes Status: Acute Code(s): T81.40XA - INFECTION FOLLOWING A PROCEDURE, UNSPECIFIED, INIT SNOMED Code(s): 50760589 Plan: 1patient present to hospital abdominal pain in this patient who is status post laparoscopic appendectomy for ruptured appendicitis now with evidence of pelvic abscess s/p CT-guided drainage by IR on 05/21/2023 cultures currently growing Klebsiella and E. coli that is sensitive pathogen patient repeat CT abdominal pelvis which did shows complete resolution of the pelvic abscess that was deepa esteban did show 2 small intra-abdominal abscess, patient has been offered the option of IV antibiotic which she seemed to be refusing we will recommend oral Cipro and Flagyl 2 weeks on discharge both of them have good oral bioaviability and close outpatient follow-up, prescription sent to the pharmacy, drainage catheter should be discontinued before discharge and there was complete resolution of that abscess Dictation was produced using [employer] dictation software. please excuse any grammatical, word or spelling errors. Time with Patient: Less than 30
[2023-05-27] MEDS: PIPERACILLIN-TAZOBACTAM 3.375 GM in SODIUM CHLORIDE 0.9% 100 ML IVPB SCH (00:48)
[2023-05-27] MEDS: HYDROcodone/APAP 5-325MG 1 EACH TAB PO PRN ×2 (04:51→10:17)
[2023-05-27] MEDS: LACTATED RINGERS 1,000 ML IV SCH (05:22)
--- NOTE | 2023-05-27 06:11 | P.PN ---
Subjective Progress Note Date: 05/26/23 This is a 63-year-old female who was recently admitted to general surgery services this patient recently had an appendectomy done that had ruptured and was quite extensive. Patient came back to the ER for further evaluation developing increased abdominal pain and worsening leukocytosis. Patient ana gold maintained on antibiotics with infectious disease following and is status post interventional radiology intra-abdominal abscess drainage. Follow-up CT ordered yesterday shows resolution of the initial abscess with 2 small abscesses noted although may be too small to drain. Patient is currently afebrile and WBC is trending down patient continues with left abdominal discomfort. No reports of nausea or vomiting patient is tolerating diet. Encouraged increased activity as tolerated. Review of systems: Constitutional: No reports of fatigue, fever, or chills Cardiovascular: No reports of chest pain or palpitations Respiratory: No reports of shortness of breath or cough GI: No reports of nausea, no reports of vomiting, no diarrhea : No reports of dysuria or retention Neurovascular: reports of generalized weakness All medications have been reviewed PHYSICAL EXAMINATION: GENERAL: The patient is alert and oriented x4, Well developed, well nourished. HEENT: Pupils are round and equally reacting to light. EOMI. no scleral icterus. No conjunctival pallor. Normocephalic, atraumatic. No pharyngeal erythema. No thyromegaly. CARDIOVASCULAR: S1 and S2 muffled PULMONARY: diminished breath sounds bilaterally with no wheezing or rhonchi noted. ABDOMEN: soft. tender on exam. non-distended, normoactive bowel sounds. No palpable organomegaly. MUSCULOSKELETAL: No joint swelling or deformity. EXTREMITIES: No cyanosis, clubbing, or pedal edema. NEUROLOGICAL: Gross neurological examination did not reveal any focal deficits. SKIN: No rashes. Assessment: Intra-abdominal abscess with postoperative sepsis, present on admission with recent appendectomy on previous admission Leukocytosis, secondary to above, trending down Atelectasis Hyponatremia Hyperlipidemia Troponin 0.049, indeterminate Severe hypokalemia, improved Thrombocytosis, possibly secondary to inflammation Acute myocardial infarction, likely per cardiology Hypertension history GI prophylaxis DVT prophylaxis Full code Plan: Recommend to continue with current medications and management per general surge ry services. Infectious disease following as well patient is maintained on antibiotics while awaiting cultures. Patient does not want to go home with IV antibiotics and infectious disease determining discharge oral antibiotics WBC trending down and would recommend follow-up labs. Patient is afebrile Follow-up CT shows 2 small abscesses likely unable to drain and will continue on antibiotics and await surgery recommendations Encouraged to increase activity as tolerated and oral intake Discussing possible discharge in the next few days We will continue to follow with general surgery during hospitalization. Thank you kindly for this consultation. The impression and plan of care has been dictated by Malika Yuen, nurse practitioner as directed. Dr. Sarah MD I have performed a history and examination and MDM of this patient, discussed the same with the dictator, and agree with the dictator's assessment and plan as written ,documented as a scribe. Based on total visit time, I have performed more than 50% of the visit. Any additional findings or plans will be noted. Objective - Vital Signs Vital signs: Vital Signs Temp 98.4 F 05/26/23 08:27 Pulse 66 05/26/23 08:41 Resp 24 05/26/23 08:27 BP 165/70 05/26/23 08:27 Pulse Ox 96 05/26/23 01:51 FiO2 21 05/22/23 08:51 Intake & Output 05/25/23 05/26/23 05/26/23 18:59 06:59 18:59 Weight 67.4 kg Other: Voiding Method Toilet Toilet # Voids 4 # Bowel Movements 4 - Labs CBC & Chem 7: 05/26/23 03:50 05/26/23 03:50 Labs: Abnormal Lab Results - Last 24 Hours (Table) 05/25/23 05/26/23 Range/Units 05:59 03:50 WBC 10.92 H (4.50-10.00) X 10*3/uL RBC 2.82 L (4.10-5.20) X 10*6/uL Hgb 8.3 L (12.0-15.0) d/dL Hct 26.4 L (37.2-46.3) % MCHC 31.4 L (32.0-37.0) d/dL RDW 15.8 H (11.5-14.5) % Plt Count 1186 H* (140-440) X 10*3/uL Neutrophils # 7.85 H (1.80-7.70) X 10*3/uL Monocytes # 1.03 H (0.20-1.00) X 10*3/uL Anion Gap 12.20 H (4.00-12.00) mmol/L BUN 5.5 L (9.0-27.0) mg/dL BUN/Creatinine Ratio 6.88 L (12.00-20.00) Ratio Total Bilirubin <0.2 L (0.3-1.2) mg/dL Total Protein 5.9 L (6.2-8.2) d/dL Albumin 2.9 L (3.8-4.9) d/dL Albumin/Globulin Ratio 0.97 L (1.60-3.17) Ratio
[2023-05-27 07:13] VITALS: BP 154/78; PULSE 75; RESP 15; TEMP 97.9
[2023-05-27] MEDS: IPRATROPIUM-ALBUTEROL 3 ML NEB INHALATION SCH ×2 (07:34→11:12)
[2023-05-27] MEDS: PANTOPRAZOLE 40 MG/10 ML VIAL IVP SCH (08:24)
[2023-05-27] MEDS: ASPIRIN 81 MG PO SCH (08:28)
[2023-05-27] MEDS: LISINOPRIL-HCTZ 20-12.5 MG 1 EACH TAB PO SCH (08:28)
[2023-05-27] MEDS: NICOTINE 14MG/24HR PATCH TRANSDERM SCH (08:34)
[2023-05-27] MEDS: DOCUSATE 100 MG CAP PO SCH (08:34)
[2023-05-27] MEDS: HEPARIN SODIUM,PORCINE/PF 5,000 UNIT/0.5 ML SYRINGE SQ SCH (08:35)
[2023-05-27 08:59] LABS: HCT 29.1 % (37.2-46.3); MCHC 30.9 d/dL (32.0-37.0); MCV 93.9 FL (80.0-97.0); Mean Platelet Volume 9.8 FL (9.5-12.2); NRBC Per 100 WBC 0 X 10*3/uL (0.00-0.01); Platelet Count 1328 X 10*3/uL (140-440); RDW 16.1 % (11.5-14.5)
[2023-05-27 09:38] LABS: BUN/Creat Ratio 6.12 Ratio (12.00-20.00); Blood Urea Nitrogen 4.9 mg/dL (9.0-27.0); Calcium 9.2 mg/dL (8.7-10.3); Carbon Dioxide 22.5 mmol/L (21.6-31.8); Chloride 101 mmol/L (96-109); Glucose 94 mg/dL (70-110); Potassium 3.6 mmol/L (3.5-5.5); Sodium 138 mmol/L (135-145)
--- NOTE | 2023-05-27 10:21 | P.DS ---
Providers Date of admission: 05/21/23 01:02 Expected date of discharge: 05/27/23 Attending physician: Stacie Otero DO Consults: 05/21/23 01:04 Consult Physician Routine Consulting Provider: Kate Donalsdon Consult Reason/Comments: medical management Do you want consulting provider notified?: Yes 05/22/23 09:34 Consult Physician Urgent Consulting Provider: Miguel Angel Billy Consult Reason/Comments: elev trops Do you want consulting provider notified?: Yes 05/24/23 10:43 Consult Physician Routine Consulting Provider: Kemar Telles Consult Reason/Comments: possible line? Abcess Do you want consulting provider notified?: Yes Primary care physician: Amada [facility] Course: 62F initially presented to the ER with complaints of right lower quadrant abdominal pain for the past week. Was found to have a CT concerning for acute appendicitis with no associated abscess. Underwent laparoscopic appendectomy on 05/11; noted to have a ruptured appendix with feculuent peritonitis. Post operatively did well. Eager to go home as was tolerating PO diet, passing flatus; pain well controlled with PO analgesia. Discussed at that time she was higher risk for abscess development due to feculent peritonitis; symptoms to prompt return visit to ER discussed & was sent home with PO antibiotics after 3 days of inpatient IV antibiotics. Returned to ER overnight for increased right-sided pain with deep inspiration over the past 24 or so hours. Leukocytosis of 23 with slight troponin release. CT revealed pelvic abscess; which wasn't unexpected due to her ruptured appendix. Takes a good 7-10 days for an abscess to form in these situations, so wouldn't have likely been seen on her first admission. Underwent successful IR drain placement 05/21. Had troponin release on admission. Suspect 2/2 acute illness. Echo completed & essentially negative. Seen & cleared by Cardiology. Continues to progress. Feeling better today. Eager to go home. Leukocytosis down-trending; persistent thrombocytosis. Antibiotics called in by ID. Cleared by ID & Medicine for discharge. Assessment: Resting comfortably, NAD Non labored breathing, normal effort Reg rate Abdomen soft, ND/NT; incisions healing well - IR drain with minimal output Skin warm & dry, no diaphoresis No LE edema No gross deficits Cooperative, normal affect Procedures: IR drain placement 05/21; removed 05/27. Patient Condition at Discharge: Good Plan - Discharge Summary Discharge Rx Participant: Yes New Discharge Prescriptions: New metroNIDAZOLE [Flagyl] 500 mg PO TID #36 tab Ciprofloxacin HCl [Cipro] 500 mg PO Q12HR 14 Days #28 tab Aspirin 81 mg PO DAILY #30 tab Continue Lisinopril-Hctz 20-12.5 mg [Zestoretic 20-12.5] 1 tab PO DAILY HYDROcodone/APAP 7.5-325MG [Burchard 7.5-325] 1 tab PO QID Naproxen [Naprosyn] 500 mg PO BID Discontinued Amoxic-Pot Clav 875-125Mg [Augmentin 875-125] 1 tab PO BID #14 tab Discharge Medication List HYDROcodone/APAP 7.5-325MG [Burchard 7.5-325] 1 tab PO QID 05/11/23 [History] Lisinopril-Hctz 20-12.5 mg [Zestoretic 20-12.5] 1 tab PO DAILY 05/11/23 [History] Naproxen [Naprosyn] 500 mg PO BID 05/11/23 [History] Ciprofloxacin HCl [Cipro] 500 mg PO Q12HR 14 Days #28 tab 05/26/23 [Rx] metroNIDAZOLE [Flagyl] 500 mg PO TID #36 tab 05/26/23 [Rx] Aspirin 81 mg PO DAILY #30 tab 05/27/23 [Rx] Follow up Appointment(s)/Referral(s): Susan Parker MD [STAFF PHYSICIAN] - 2 Weeks (Make follow-up appointment for thrombocytosis) [facility] [NON-STAFF] - As Needed ([facility] will call you to schedule your in home nursing visits. ) Amada Courtney DO [Primary Care Provider] - 1-2 days Stacie Otero DO [Family Provider] - 1 Week (as scheduled for ) Kemar Telles MD [STAFF PHYSICIAN] - 1 Week Ambulatory/Diagnostic Orders: Complete Blood Count w/diff [LAB.AMB] Time Frame: 1 Week, Location: None Selected Patient Instructions/Handouts: Abscess (ED) Discharge Disposition: HOME SELF-CARE
--- NOTE | 2023-05-28 10:18 | P.PN ---
Subjective Progress Note Date: 05/27/23 This is a 63-year-old female who was recently admitted to general surgery services this patient recently had an appendectomy done that had ruptured and was quite extensive. Patient came back to the ER for further evaluation developing increased abdominal pain and worsening leukocytosis. Patient ana gold maintained on antibiotics with infectious disease following and is status post interventional radiology intra-abdominal abscess drainage. Follow-up CT ordered yesterday shows resolution of the initial abscess with 2 small abscesses noted although may be too small to drain. Patient is currently afebrile and WBC is trending down patient continues with left abdominal discomfort. No reports of nausea or vomiting patient is tolerating diet. Encouraged increased activity as tolerated. 05/27/2023 Patient is seen in follow-up today continued on IV antibiotics and we'll transition to oral antibiotics. Patient to have drain removed today by interventional radiology with plans for possible discharge. White count is trending down and patient remains afebrile. Patient reports decreased abdominal pain and would like to go home. Infectious disease following recommending IV antibiotics although patient does not want to continue with antibiotics that we and is agreeable to oral. Recommend close outpatient follow-up. Patient is afebrile with no reports of chest pain or shortness of breath. Reports the tolerating diet with no reported nausea or vomiting noted. Patient is medically stable for discharge today. Review of systems: Constitutional: No reports of fatigue, fever, or chills Cardiovascular: No reports of chest pain or palpitations Respiratory: No reports of shortness of breath or cough GI: No reports of nausea, no reports of vomiting, no diarrhea : No reports of dysuria or retention Neurovascular: No reports of generalized weakness All medications have been reviewed PHYSICAL EXAMINATION: GENERAL: The patient is alert and oriented x4, Well developed, well nourished. HEENT: Pupils are round and equally reacting to light. EOMI. no scleral icterus. No conjunctival pallor. Normocephalic, atraumatic. No pharyngeal erythema. No thyromegaly. CARDIOVASCULAR: S1 and S2 muffled PULMONARY: diminished breath sounds bilaterally with no wheezing or rhonchi note d. ABDOMEN: soft. tender on exam. non-distended, normoactive bowel sounds. No palpable organomegaly. MUSCULOSKELETAL: No joint swelling or deformity. EXTREMITIES: No cyanosis, clubbing, or pedal edema. NEUROLOGICAL: Gross neurological examination did not reveal any focal deficits. SKIN: No rashes. Assessment: Intra-abdominal abscess with postoperative sepsis, present on admission with re cent appendectomy on previous admission Leukocytosis, secondary to above, trending down Atelectasis Hyponatremia Hyperlipidemia Troponin 0.049, indeterminate Severe hypokalemia, improved Thrombocytosis, possibly secondary to inflammation Acute myocardial infarction, likely per cardiology Hypertension history GI prophylaxis DVT prophylaxis Full code Plan: Recommend to continue with current medications and management per general surgery services. Infectious disease following as well and patient remains afebrile and does not want to go home with IV antibiotics and will be going home with oral per ID recommendations Abscess drainage removed by IR today and will need close outpatient follow-up surgery. Encouraged to increase activity as tolerated and oral intake Patient is medically stable for discharge today. We will continue to follow with general surgery during hospitalization. Thank you kindly for this consultation. The impression and plan of care has been dictated by Malika Yuen, nurse practitioner as directed. Dr. Sarah MD I have performed a history and examination and MDM of this patient, discussed the same with the dictator, and agree with the dictator's assessment and plan as written ,documented as a scribe. Based on total visit time, I have performed more than 50% of the visit. Any additional findings or plans will be noted. Objective - Vital Signs Vital signs: Vital Signs Temp 97.9 F 05/27/23 07:04 Pulse 75 05/27/23 07:20 Resp 15 05/27/23 07:20 BP 154/78 05/27/23 07:04 Pulse Ox 96 05/27/23 07:41 FiO2 21 05/27/23 07:41 Intake & Output 05/26/23 05/27/23 05/27/23 18:59 06:59 18:59 Weight 66.7 kg Other: Voiding Method Toilet Toilet Toilet # Voids 2 2 2 - Labs CBC & Chem 7: 05/27/23 04:31 05/27/23 04:31 Labs: Abnormal Lab Results - Last 24 Hours (Table) 05/26/23 05/26/23 05/27/23 Range/Units 03:50 03:50 04:31 WBC 10.77 H 10.90 H (4.50-10.00) X 10*3/uL RBC 2.97 L 3.10 L (4.10-5.20) X 10*6/uL Hgb 8.8 L 9.0 L (12.0-15.0) d/dL Hct 28.2 L 29.1 L (37.2-46.3) % MCHC 31.2 L 30.9 L (32.0-37.0) d/dL RDW 16.0 H 16.1 H (11.5-14.5) % Plt Count 1269 H* 1328 H* (140-440) X 10*3/uL Monocytes # 1.01 H (0.20-1.00) X 10*3/uL Anion Gap 12.20 H (4.00-12.00) mmol/L BUN 5.5 L (9.0-27.0) mg/dL BUN/Creatinine Ratio 6.88 L (12.00-20.00) Ratio Total Bilirubin <0.2 L (0.3-1.2) mg/dL Total Protein 5.9 L (6.2-8.2) d/dL Albumin 2.9 L (3.8-4.9) d/dL Albumin/Globulin Ratio 0.97 L (1.60-3.17) Ratio 05/27/23 Range/Units 04:31 WBC (4.50-10.00) X 10*3/uL RBC (4.10-5.20) X 10*6/uL Hgb (12.0-15.0) d/dL Hct (37.2-46.3) % MCHC (32.0-37.0) d/dL RDW (11.5-14.5) % Plt Count (140-440) X 10*3/uL Monocytes # (0.20-1.00) X 10*3/uL Anion Gap 14.50 H (4.00-12.00) mmol/L BUN 4.9 L (9.0-27.0) mg/dL BUN/Creatinine Ratio 6.12 L (12.00-20.00) Ratio Total Bilirubin (0.3-1.2) mg/dL Total Protein (6.2-8.2) d/dL Albumin (3.8-4.9) d/dL Albumin/Globulin Ratio (1.60-3.17) Ratio Microbiology - Last 24 Hours (Table) 05/21/23 15:30 Gram Stain - Final Aspirate Body Fluid Culture - Final Escherichia coli Klebsiella pneumoniae Gram Positive Bacilli 05/21/23 00:24 Blood Culture - Final Blood 05/21/23 00:24 Blood Culture - Final Blood
== END 2023-05-27 11:27 | disposition home or self-care (01) | DRG 862 ==
LOC: EC 22:21 → 3SCARD 05-21 01:02 → 4SSUR 05-21 14:45
PROVIDERS: ADMIT Surgery; ATTEND Surgery
PROC: 0W9J30Z Drainage of Pelvic Cavity with Drainage Device, Percutaneous Approach (ICD-10-PCS; principal; 2023-05-22)
DX: T81.44XA Sepsis following a procedure, initial encounter (principal); A41.9 Sepsis, unspecified organism; I21.9 Acute myocardial infarction, unspecified; E87.1 Hypo-osmolality and hyponatremia; J90 Pleural effusion, not elsewhere classified; J98.11 Atelectasis; T81.43XA Infection following a procedure, organ and space surgical site, initial encounter; Z28.310 Unvaccinated for COVID-19; B96.20 Unspecified Escherichia coli [E. coli] as the cause of diseases classified elsewhere; B96.1 Klebsiella pneumoniae [K. pneumoniae] as the cause of diseases classified elsewhere; N73.9 Female pelvic inflammatory disease, unspecified; I10 Essential (primary) hypertension; D64.9 Anemia, unspecified; D75.838 Other thrombocytosis; E78.5 Hyperlipidemia, unspecified; M54.9 Dorsalgia, unspecified; E87.6 Hypokalemia; F17.200 Nicotine dependence, unspecified, uncomplicated; Z71.6 Tobacco abuse counseling; Z79.1 Long term (current) use of non-steroidal anti-inflammatories (NSAID); Z79.899 Other long term (current) drug therapy
CPT/HCPCS: 36415; 71046; 71275; 74177; 74178; 75989; 80048; 80053; 80202; 81001; 83605; 83735; 83880; 84100; 84132; 84484; 85025; 85027; 85379; 85610; 85730; 87040; 87070; 87077; 87186; 87205; 93005; 93306; 94640; 94760; 96365; 96366; 96367; 96375; 96376; 99285

== ENCOUNTER → 2023-06-04 | Outpatient (CLI) | payer BC ==
--- NOTE | 2023-06-04 15:01 | CT ---
EXAMINATION TYPE: CT abdomen pelvis w con DATE OF EXAM: 06/04/2023 COMPARISON: 05/26/2023 HISTORY: 63-year-old female N73.9, Follow up for appendix abscess. TECHNIQUE: Contiguous axial scanning of the abdomen and pelvis following administration of 100 ml Iso yina 300 IV contrast. Delayed images through the kidneys and coronal/sagittal reconstructions perform ed. CT DLP: 817 mGycm Automated exposure control for dose reduction was used. FINDINGS: Heart is upper limits of normal in sizer without pericardial effusion. There is a trace right pleural effusion with adjacent atelectasis. Decreased from prior. Focal patchy right basilar opacity also sh ows some improvement. Correlate for improving atelectasis versus improving pneumonia. No focal liver lesion or biliary ductal dilatation. 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 Portal venous system is patent. Gallbladder, adrenal glands, spleen, and pancreas within normal limits. Slightly delayed excretion of contrast on the delayed kidney images. Correlate with BUN/creatinine to exclude acute kidney injury. There are moderate arthroscopic calcifications infrarenal abdominal aor ta No dilated small bowel or free air. Mild perihepatic ascites remains. Some thickening along the right paracolic gutter. There may be some irregular mural thickening along the right lateral wall of the c ecum as well, axial image 56. Soft tissue stranding within the mesentery of the right mid abdomen and right lower quadrant has incr eased though the abnormal fluid locules appear to have resolved. Minimal platelike fluid remains in the right cul-de-sac at the site of previous drainage catheter. Th is measures 3.8 cm wide by 5.1 cm AP by 8 mm thick. Refer to axial image 80 and sagittal image 62. Al so seen on coronal image 70. Bladder is nondistended. Uterus anteverted. Both ovaries are visualized. No pelvic lymphadenopathy. Bones: Hypertrophic facet arthropathy mid to lower lumbar spine with grade 1 retrolisthesis L3-L4 and grade 1 anterolisthesis L4-L5. IMPRESSION: 1. INTERVAL REMOVAL OF THE PELVIC DRAIN. A PLATELIKE FLUID COLLECTION/ABSCESS REMAINS HERE IN THE RIG HT CUL-DE-SAC MEASURING 8 MM THICK. 2. INCREASING INFLAMMATORY SOFT TISSUE STRANDING WITHIN THE MID AND LOWER RIGHT MESENTERY THOUGH THE PREVIOUS SMALL FLUID LOCULES HERE APPEAR TO HAVE RESOLVED. 3. SOME CONTIGUOUS THICKENING OF THE LATERAL WALL OF THE CECUM MAY BE SECONDARY INFLAMMATION. ONGOING FOLLOW-UP RECOMMENDED. WHILE FINDINGS ARE PROBABLY ON THE BASIS OF PARTIALLY/INCOMPLETELY TREATED IN FECTION, CORRELATE WITH PATHOLOGY FROM PATIENT'S SURGERY TO EXCLUDE ANY UNUSUAL FINDINGS SUCH MUCI NOUS NEOPLASM. 4. SOME DELAYED EXCRETION OF CONTRAST FROM THE KIDNEYS. CORRELATE WITH KIDNEY FUNCTION TO EXCLUDE ACU TE KIDNEY INJURY. 5. TRACE RIGHT PLEURAL EFFUSION REMAINS, SLIGHTLY IMPROVED FROM PRIOR. ADJACENT RIGHT BASILAR OPACITY (INFILTRATE VERSUS ATELECTASIS) PERSISTS BUT IS ALSO IMPROVING. 6. SIMILAR TRACE PERIHEPATIC ASCITES.
== END | disposition home or self-care (01) ==
LOC: RADCTMAIN 09:05
PROVIDERS: ATTEND Surgery
DX: Z09 Encounter for follow-up examination after completed treatment for conditions other than malignant neoplasm (principal); K35.33 Acute appendicitis with perforation, localized peritonitis, and gangrene, with abscess; N73.9 Female pelvic inflammatory disease, unspecified; J90 Pleural effusion, not elsewhere classified; Z90.89 Acquired absence of other organs
CPT/HCPCS: 74177; Q9967